=== PATIENT | male | born 1955 | race Caucasian/White ===

== ENCOUNTER → 2019-07-09 12:33 | Outpatient (CLI) | payer BC, SELFPAY ==
[2019-07-09 12:53] LABS: Add Manual Diff / Slide Review NO; Basophils Absolute Auto 100 /uL (0-100); Basophils Percent Auto 0.9 % (0-2); Eosinophils Absolute Auto 400 /uL (0-450); Eosinophils Percent Auto 5.1 % (2-4); Hematocrit 47.4 % (41-53); Hemoglobin 16.5 g/dL (13.5-17.5); Lymphocytes Absolute Auto 1900 /uL (1100-4500); Lymphocytes Percent Auto 26.5 % (25-40); Mean Corpuscular HGB Conc 34.7 % (30-36); Mean Corpuscular Hemoglobin 32.3 PG (26-34); Mean Corpuscular Volume 92.9 fL (80-100); Monocytes Absolute Auto 700 /uL (0-900); Neutrophils Absolute Auto 4100 /uL (1500-7000); Neutrophils Percent Auto 57.5 % (50-75); Platelet Count 201 X10^3/uL (150-400); Red Blood Cell Count 5.11 X10^6/uL (4.5-5.9); Red Cell Distribution Width 12.1 % (11.6-14.8); White Blood Cell Count 7.2 X10^3/uL (4.5-11.0)
[2019-07-09 13:09] LABS: Hemoglobin A1C% w Est Avg Glu 5.9 % (4.0-6.0)
[2019-07-09 13:51] LABS: Alanine Aminotransferase 41 IU/L (<50); Albumin 4.6 g/dL (3.5-5.0); Albumin Globulin Ratio 1.8 (1.0-2.8); Alkaline Phosphatase 62 U/L (38-126); Aspartate Aminotransferase 33 IU/L (17-59); BUN Creatinine Ratio 18.9 (6-22); Bilirubin Total 0.6 mg/dL (0.2-1.3); Blood Urea Nitrogen 17 mg/dL (9-20); Calcium 9.5 mg/dL (8.4-10.2); Carbon Dioxide 27 mmol/L (22-32); Chloride 105 mmol/L (98-107); Cholesterol 173 mg/dL (140-199); Estimated Glomerular Filt Rate > 60.0 mL/min (>60); Globulin 2.6 g/dL (1.7-4.1); Glucose 104 mg/dL (80-110); HDL Cholesterol 61 mg/dL (40-60); HEMOLYSIS < 15 (0-50); LDL Cholesterol Calculated 79 mg/dL (<100); Sodium 139 mmol/L (137-145); Total Protein 7.2 g/dL (6.3-8.2); Triglycerides 166 mg/dL (35-150)
[2019-07-09 14:19] LABS: Prostate Specific Antigen 0.634 ng/mL (0.10-4.00)
[2019-07-09 14:21] LABS: Thyroid Stimulating Hormone 2.31 uIU/mL (0.47-4.68)
== END ==
PROVIDERS: PCP Family Medicine; Referring Provider Family Medicine; Visit Provider Family Medicine
DX: Z76.89 Persons encountering health services in other specified circumstances (principal)
CPT/HCPCS: 36415; 80053; 80061; 83036; 84153; 84443; 85025

== ENCOUNTER 2019-08-04 15:49 | Emergency (ER) | payer BC, SELFPAY ==
[2019-08-04] VITALS (7 sets, daily range): BP systolic 156–180; BP diastolic 77–94; PULSE 52–70; RESP 14–18; TEMP 36.9; O2SAT 95–100
--- NOTE | 2019-08-04 15:59 | DI.CT.S_ITS ---
PROCEDURE: CT KIDNEY URETER BLADDER (KUB) INDICATIONS: Right flank pain TECHNIQUE: Noncontrast 5 mm thick sections acquired from the diaphragms to the symphysis. 5 mm thick coronal and sagittal reformats were then performed. For radiation dose reduction, the following was used: automated exposure control, adjustment of mA and/or kV according to patient size. COMPARISON: None. FINDINGS: Image quality: Diagnostic. Lung bases: Lung bases are clear. Heart size is normal. Coronary artery atherosclerosis is incidentally noted. Urinary system: Right kidney is slightly prominent in size and demonstrates mild. Next right edema with [id number] hydronephrosis and proximal hydroureter. There is at least a partially obstructing ureteral calculus evident at the ureteropelvic junction, which measures approximately 6 x 7 x 8 mm (image 38, series 2). Additional nonobstructing bilateral renal calculi are identified ranging in size from to 3 mm. No left-sided hydronephrosis is identified. The ureters are otherwise patent and unremarkable. No additional ureteral calculi are present bilaterally. No bladder calculi are identified. No significant bladder wall thickening is identified. Other solid organs: Liver is normal in size. Gallbladder is contracted and subsequently not adequately evaluated. Pancreas is normal in contours. Spleen is normal in size. Enlargement of the left adrenal gland is identified with a nodule measuring 2.4 x 2.9 cm. The density value over this nodule measures approximately 24 Hounsfield units (image 27, series 2). The right adrenal is unremarkable. Peritoneum and bowel: The stomach is unremarkable. The small bowel loops are nondilated. A normal amount of stool is seen within the colon. No mesenteric inflammation is appreciated. There is no free fluid, loculated fluid collection or free air. Areas of wall thickening involving the colon probably is related to incomplete distention and lack of significant intraluminal stool. Nodes and vessels: No retroperitoneal or mesenteric adenopathy by size criteria. Aorta and inferior vena cava are normal in caliber. Other pelvic soft tissues: No free pelvic fluid. No definite inguinal hernias or adenopathy. No loculated fluid collections are identified. The prostate contains a few coarse calcifications and is borderline enlarged. Bones: No suspicious bony lesions. No vertebral body compression fractures. Mild degenerative changes of the lumbar spine are present. There are [id number] degenerative changes of the pelvic joints. IMPRESSION: 1. Moderate-sized proximal at least partially obstructing right ureteral calculus with associated mild to moderate right-sided hydronephrosis. 2. Additional nonobstructing small renal calculi are present bilaterally. 3. Areas of wall thickening involving portions of the colon are felt to be exaggerated by lack of focal intraluminal stool. Areas of mild colonic wall inflammation cannot be completely excluded, but are felt to be unlikely. No bowel obstruction. 4. Indeterminate left adrenal nodule. MRI of the abdomen is recommended for further evaluation. Dictated by: Nav Fishman M.D. on 08/04/2019 at 15:44 Approved by: Nav Fishman M.D. on 08/04/2019 at 15:54
--- NOTE | 2019-08-04 16:04 | ED_ITS ---
HPI - Abdominal Pain <JARRELL Mckee - Last Filed: 08/04/19 19:04> General Chief Complaint: Abdominal Pain Stated Complaint: Right leg and groin pain Time Seen by Provider: 08/04/19 15:51 Source: patient Mode of arrival: Ambulatory History of Present Illness HPI narrative: 63yo male presents to the emergency department for right flank pain over the past 2-3 days. He states it is a dull ache 5/10 without ag gravating or alleviating symptoms. Patient states the pain does radiate down to his right groin. He did vomit this morning due to pain not due to nausea. Patient denies any swelling in his scrotum, pain is scrotum, or penile discharge. Patient denies any abdominal pain. He denies a history of kidney stones. Patient also denies fevers, chills, diarrhea, dizziness, cough, sore throat, ear pain, or any other concerns. Patient denies taking any blood thinners. Related Data Home Medications Medication Instructions Recorded Confirmed fluticasone propionate 50 2 spray NASAL DAILY 07/09/19 07/09/19 mcg/actuation nasal spray,suspension loratadine 10 mg tablet 10 mg PO DAILY 07/09/19 07/09/19 rosuvastatin 40 mg tablet 40 mg PO tab 07/09/19 07/09/19 Previous Rx's Medication Instructions Recorded hydrocodone-acetaminophen [Tor[place]] 1 tab PO Q4-6H PRN #14 tab 08/04/19 ondansetron 4 mg PO Q4H PRN #20 tab 08/04/19 tamsulosin 0.4 mg PO BEDTIME #30 cap 08/04/19 Allergies Allergy/AdvReac Type Severity Reaction Status Date / Time No Known Drug Allergies Allergy Verified 07/09/19 11:51 Review of Systems <JARRELL Mckee - Last Filed: 08/04/19 19:04> Review of Systems Narrative: REVIEW OF SYSTEMS: GENERAL: Denies fever, chills, malaise, or wt. loss. HENT: No head trauma, sore throat, or dysphagia. EYES: No loss of vision, double vision, eye pain, or irritation. CARDIOVASCULAR: No chest pain, palpitations, or orthopnea. RESPIRATORY: No shortness of breath or cough. GASTROINTESTINAL: Complains of vomiting, see HPI GENITOURINARY: Reports right-sided flank pain, see HPI. MUSCULOSKELETAL: No pain, weakness, or trauma. INTEGUMENTARY: No rash, lesions, or pruritus. NEURO: No numbness, tingling, memory loss, confusion, or headaches. PSYCH: No behavior or mood changes. Patient History <JARRELL Mckee - Last Filed: 08/04/19 19:04> Medical History Chicken pox (Resolved ~1974) Chronic sinusitis (Chronic ~1996) Colon polyps (Acute ~2014) Herpes (Inactive ~1983) History of squamous cell carcinoma (Acute ~1993) Hyperlipidemia (Acute ~2007) Neoplasm of nose (Acute) Osteoporosis (Chronic ~2009) Sciatica (Acute ~2014) Surgical History Anesthesia (Resolved) Carpal tunnel syndrome on both sides (Acute ~2016) Cubital tunnel syndrome, bilateral (Acute ~2016) History of oral surgery (Resolved) Status post surgical removal of neoplasm of skin (Acute) Family History Father Dementia Congestive heart failure Hypertension Hyperlipidemia Mother Cancer COPD (chronic obstructive pulmonary disease) Brother Congestive heart failure Myocardial infarction Arrhythmia Hyperlipidemia Sister Chronic sinusitis Deviated nasal septum Grandfather No problems noted. Grandmother Cancer Grandfather Arterial stenosis Hyperlipidemia Stroke Grandmother Myocardial infarction Congestive heart failure Social History Smoking Status: Former smoker (Quit @ 31 ) Tobacco: How many years used: 5 quit status: has quit before second hand exposure: Yes alcohol intake: current (2+ drinks per day ) substance use type: does not use Smoking Status: Former smoker (Quit @ 31 ) Exam <JARRELL Mckee - Last Filed: 08/04/19 19:04> Initial Vital Signs Initial Vital Signs: Vital Signs Temperature 98.4 F 08/04/19 15:59 Pulse Rate 62 08/04/19 15:59 Respiratory Rate 18 08/04/19 15:59 Blood Pressure 180/89 H 08/04/19 15:59 Pulse Oximetry 100 08/04/19 15:59 PHYSICAL EXAMINATION: GENERAL: Well groomed, alert, and cooperative. Answers questions promptly and appropriately. Vital signs noted. HENT: Normocephalic, atraumatic. Hearing intact. Oral mucosa is pink and moist. EYES: Conjunctiva pink, sclera white, no periorbital swelling. CARDIOVASCULAR: S1 and S2 sounds normal. Regular rate and rhythm, no murmurs, clicks, or bruits. No pedal edema. RESPIRATORY: Normal respiratory rate, trachea midline, airway patent. No stridor, nasal flaring or accessory muscle use. Lungs are clear in all [place] without wheeze, rhonchi, or crackles. GASTROINTESTINAL: Bowel sounds normoactive. Abdomen is soft and non-tender. No organomegaly, no palpable masses. GENITALURINARY: Right CVA tenderness. MUSCULOSKELETAL: Normal gait and coordination. Equal tone and mass bilaterally. EXTREMITIES: CMS intact, no pedal edema. SKIN: Warm, dry, soft, appropriate color for ethnicity. No lesions, rashes, or wounds to visualized areas. NEURO: Alert and Oriented X 3. Good coordination. No ataxia, or sensory defic its, or cognitive issues. PSYCH: Appropriate affect and mood. <Hiren Munoz DO - Last Filed: 08/04/19 19:05> Initial Vital Signs Initial Vital Signs: Vital Signs Temperature 98.4 F 08/04/19 15:59 Pulse Rate 62 08/04/19 15:59 Respiratory Rate 18 08/04/19 15:59 Blood Pressure 180/89 H 08/04/19 15:59 Pulse Oximetry 100 08/04/19 15:59 Course <JARRELL Mckee - Last Filed: 08/04/19 19:04> Course Course Narrative: Patient was given Toradol, Decadron, and fluids in the emergency department. Patient reported significant improved symptoms after medications. Orders Ordered: ED Orders 08/04/19 15:59 CT kidney ureter bladder (KUB) Stat 08/04/19 16:15 Complete Blood Count AUTO DIFF Stat Comprehensive Metabolic Panel Stat 08/04/19 17:10 Urinalysis and Microscopic Stat Discontinued Medications Sodium Chloride (Normal Saline 0.9%) 1,000 mls @ 1,000 mls/hr IV BOLUS ONE Stop: 08/04/19 16:58 Last Infusion: 08/04/19 17:37 Dose: 0 mls/hr Documented by: [email or web address] Admin: 08/04/19 16:43 Dose: 1,000 mls/hr Documented by: NATHANIEL Ketorolac Tromethamine (Toradol) 30 mg IV NOW ONE Stop: 08/04/19 16:00 Last Admin: 08/04/19 16:32 Dose: 30 mg Documented by: NATHANIEL Ondansetron HCl (Zofran) 4 mg IV NOW ONE Stop: 08/04/19 16:02 Last Admin: 08/04/19 16:31 Dose: 4 mg Documented by: NATHANIEL Vital Signs Vital signs: Vital Signs - 8 hr 08/04/19 15:59 08/04/19 16:10 08/04/19 16:43 Temperature 98.4 F Pulse Rate 62 52 L 52 L Respiratory Rate 18 16 16 Blood Pressure 180/89 H Blood Pressure [Right Arm] 169/94 H 169/94 H Pulse Oximetry 100 99 99 08/04/19 17:00 08/04/19 17:23 08/04/19 17:52 Temperature Pulse Rate 70 62 59 L Respiratory Rate 14 16 Blood Pressure 156/77 H Blood Pressure [Right Arm] 156/84 H 156/84 H Pulse Oximetry 95 100 99 08/04/19 17:53 Temperature Pulse Rate 56 L Respiratory Rate 16 Blood Pressure 156/77 H Blood Pressure [Right Arm] Pulse Oximetry 99 <Hiren Munoz, - Last Filed: 08/04/19 19:05> Orders Ordered: ED Orders 08/04/19 15:59 CT kidney ureter bladder (KUB) Stat 08/04/19 16:15 Complete Blood Count AUTO DIFF Stat Comprehensive Metabolic Panel Stat 08/04/19 17:10 Urinalysis and Microscopic Stat Discontinued Medications Sodium Chloride (Normal Saline 0.9%) 1,000 mls @ 1,000 mls/hr IV BOLUS ONE Stop: 08/04/19 16:58 Last Infusion: 08/04/19 17:37 Dose: 0 mls/hr Documented by: Admin: 08/04/19 16:43 Dose: 1,000 mls/hr Documented by: NATHANIEL Ketorolac Tromethamine (Toradol) 30 mg IV NOW ONE Stop: 08/04/19 16:00 Last Admin: 08/04/19 16:32 Dose: 30 mg Documented by: NATHANIEL Ondansetron HCl (Zofran) 4 mg IV NOW ONE Stop: 08/04/19 16:02 Last Admin: 08/04/19 16:31 Dose: 4 mg Documented by: NATHANIEL Vital Signs Vital signs: Vital Signs - 8 hr 08/04/19 15:59 08/04/19 16:10 08/04/19 16:43 Temperature 98.4 F Pulse Rate 62 52 L 52 L Respiratory Rate 18 16 16 Blood Pressure 180/89 H Blood Pressure [Right Arm] 169/94 H 169/94 H Pulse Oximetry 100 99 99 08/04/19 17:00 08/04/19 17:23 08/04/19 17:52 Temperature Pulse Rate 70 62 59 L Respiratory Rate 14 16 Blood Pressure 156/77 H Blood Pressure [Right Arm] 156/84 H 156/84 H Pulse Oximetry 95 100 99 08/04/19 17:53 Temperature Pulse Rate 56 L Respiratory Rate 16 Blood Pressure 156/77 H Blood Pressure [Right Arm] Pulse Oximetry 99 MDM - Abdominal Pain <JARRELL Mckee - Last Filed: 08/04/19 19:04> Medical Records Attestation: I reviewed the patient's medical records. Lab Data Attestation: I reviewed the patient's lab results. Result diagrams: 08/04/19 16:15 08/04/19 16:15 Labs: Lab Results 08/04/19 08/04/19 08/04/19 Range/Units 16:15 16:15 17:10 WBC 8.3 (4.5-11.0) X10^3/uL RBC 4.92 (4.5-5.9) X10^6/uL Hgb 15.7 (13.5-17.5) g/dL Hct 46.4 (41-53) % MCV 94.3 (80-100) fL MCH 31.8 (26-34) PG MCHC 33.8 (30-36) % RDW 12.3 (11.6-14.8) % Plt Count 186 (150-400) X10^3/uL Neut % (Auto) 64.9 (50-75) % Lymph % (Auto) 21.8 L (25-40) % Morton % (Auto) 8.5 (3-14) % Eos % (Auto) 4.1 H (2-4) % Baso % (Auto) 0.7 (0-2) % Neut # (Auto) 5400 (4951-8858) /uL Lymph # (Auto) 1800 (0247-2347) /uL Morton # (Auto) 700 (0-900) /uL Eos # (Auto) 300 (0-450) /uL Baso # (Auto) 100 (0-100) /uL Sodium 138 (137-145) mmol/L Potassium 4.4 (3.4-5.1) mmol/L Chloride 105 (98-107) mmol/L Carbon Dioxide 24 (22-32) mmol/L BUN 16 (9-20) mg/dL Creatinine 1.09 (0.66-1.25) mg/dL Estimated GFR > 60.0 (>60) mL/min BUN/Creatinine Ratio 14.7 (6-22) Glucose 104 (80-110) mg/dL Calcium 9.3 (8.4-10.2) mg/dL Total Bilirubin 0.5 (0.2-1.3) mg/dL AST 34 (17-59) IU/L ALT 37 (<50) IU/L Alkaline Phosphatase 56 (38-126) U/L Total Protein 7.1 (6.3-8.2) g/dL Albumin 4.4 (3.5-5.0) g/dL Globulin 2.7 (1.7-4.1) g/dL Albumin/Globulin Ratio 1.6 (1.0-2.8) Urine Color Yellow Urine Appearance Clear Urine pH 6.5 (4.5-8.0) Ur Specific [place] 1.025 (1.000-1.035) Urine Protein 2+ H (Negative) Urine Glucose (UA) Negative (Negative) g/dL Urine Ketones Negative (NEGATIVE) Urine Occult Blood 3+ H (Negative) Urine Nitrate Negative (Negative) Urine Bilirubin Negative (NEGATIVE) Urine Urobilinogen 0.2 (0.2) E.U./dL Ur Leukocyte Esterase Negative (NEGATIVE) Urine RBC 30-100/hpf H (0-5/HPF) Urine WBC 0-1/hpf (0-5/HPF) Ur Squamous Epith Cells 0-1 /hpf (0-5/HPF) Urine Bacteria Occasional (0-1) (None) Urine Mucus 1+ H (Negative) Ur Culture Indicated? Cult not indicated Point of care testing: Urine Dip Bedside Urine Glucose Negative Bedside Urine Bilirubin - Negative Bedside Urine Ketone +/- 5 Urine Specific [place] 1.025 Bedside Urine Occult Blood +++ Bedside Urine pH 6.0 Bedside Urine Protein ++ 100 Bedside Urine Urobilinogen - Negative Bedside Urine Nitrite - Negative Bedside Urine Leukocytes - Negative Esterase Imaging Data CT scan - abdomen/pelvis: Radiologist's Impression: [address] [address] [address] Scan Report Signed Patient: Eliu Butler LMR#: [id number] : 7Acct:[id number] Age/Sex: 63 / MDate of Service: 08/04/19 Loc: ED Accession Number: [id number] Procedure: CT kidney ureter bladder (KUB) Ordering Provider: Shahla Olson PROCEDURE: CT KIDNEY URETER BLADDER (KUB) INDICATIONS: Right flank pain TECHNIQUE: Noncontrast 5 mm thick sections acquired from the diaphragms to the symphysis. 5 mm thick coronal and sagittal reformats were then performed. For radiation dose reduction, the following was used: automated exposure control, adjustment of mA and/or kV according to patient size. COMPARISON: None. FINDINGS: Image quality: Diagnostic. Lung bases: Lung bases are clear. Heart size is normal. Coronary artery atherosclerosis is incidentally noted. Urinary system: Right kidney is slightly prominent in size and demonstrates mild . Next right edema with [id number] hydronephrosis and proximal hydroureter. There is at least a partially obstructing ureteral calculus evident at the ureteropelvic junction, which measures approximately 6 x 7 x 8 mm (image 38, series 2). Additional nonobstructing bilateral renal calculi are identified ranging in size from to 3 mm. No left-sided hydronephrosis is identified. The ureters are otherwise patent and unremarkable. No additional ureteral calculi are present bilaterally. No bladder calculi are identified. No significant bladder wall thickening is identified. Other solid organs: Liver is normal in size. Gallbladder is contracted and subsequently not adequately evaluated. Pancreas is normal in contours. Spleen is normal in size. Enlargement of the left adrenal gland is identified with a nodule measuring 2.4 x 2.9 cm. The density value over this nodule measures approximately 24 Hounsfield units (image 27, series 2). The right adrenal is unremarkable. Peritoneum and bowel: The stomach is unremarkable. The small bowel loops are nondilated. A normal amount of stool is seen within the colon. No mesenteric inflammation is appreciated. There is no free fluid, loculated fluid collection or free air. Areas of wall thickening involving the colon probably is related to incomplete distention and lack of significant intraluminal stool. Nodes and vessels: No retroperitoneal or mesenteric adenopathy by size criteria. Aorta and inferior vena cava are normal in caliber. Other pelvic soft tissues: No free pelvic fluid. No definite inguinal hernias or adenopathy. No loculated fluid collections are identified. The prostate contains a few coarse calcifications and is borderline enlarged. Bones: No suspicious bony lesions. No vertebral body compression fractures. Mild degenerative changes of the lumbar spine are present. There are mild-to- moderate degenerative changes of the pelvic joints. IMPRESSION: 1. Moderate-sized proximal at least partially obstructing right ureteral calculus with associated mild to moderate right-sided hydronephrosis. 2. Additional nonobstructing small renal calculi are present bilaterally. 3. Areas of wall thickening involving portions of the colon are felt to be exaggerated by lack of focal intraluminal stool. Areas of mild colonic wall inflammation cannot be completely excluded, but are felt to be unlikely. No bowel obstruction. 4. Indeterminate left adrenal nodule. MRI of the abdomen is recommended for further evaluation. Dictated by: Nav Fishman M.D. on 08/04/2019 at 15:44 Approved by: Nav Fishman M.D. on 08/04/2019 at 15:54 MDM Narrative Medical decision making narrative: 63-year-old male presenting with right flank pain for the past few days. CT KUB shows partial obstructing renal calculi without hydronephrosis, I suspect this is most likely the cause of his pain due to correlating blood found in urine, right CVA tenderness, and episodes of vomiting. Less likely gallbladder, pancreatic, or acute abdominal etiology due to normal lipase and nontender abdominal exam. Patient was referred to a urologist due to large stone. He was encouraged to follow-up in the next week. Patient was given tamsulosin, [place], and ondansetron to help with symptoms. There was no bacteria found in urine, no need for antibiotics at this time. Patient was given strict return precautions, he agrees to plan of care verbalized understanding. <Hirenluis Munoz, DO - Last Filed: 08/04/19 19:05> Lab Data Labs: Lab Results 08/04/19 08/04/19 08/04/19 Range/Units 16:15 16:15 17:10 WBC 8.3 (4.5-11.0) X10^3/uL RBC 4.92 (4.5-5.9) X10^6/uL Hgb 15.7 (13.5-17.5) g/dL Hct 46.4 (41-53) % MCV 94.3 (80-100) fL MCH 31.8 (26-34) PG MCHC 33.8 (30-36) % RDW 12.3 (11.6-14.8) % Plt Count 186 (150-400) X10^3/uL Neut % (Auto) 64.9 (50-75) % Lymph % (Auto) 21.8 L (25-40) % Morton % (Auto) 8.5 (3-14) % Eos % (Auto) 4.1 H (2-4) % Baso % (Auto) 0.7 (0-2) % Neut # (Auto) 5400 (0950-1807) /uL Lymph # (Auto) 1800 (1905-4437) /uL [place] # (Auto) 700 (0-900) /uL Eos # (Auto) 300 (0-450) /uL Baso # (Auto) 100 (0-100) /uL Sodium 138 (137-145) mmol/L Potassium 4.4 (3.4-5.1) mmol/L Chloride 105 (98-107) mmol/L Carbon Dioxide 24 (22-32) mmol/L BUN 16 (9-20) mg/dL Creatinine 1.09 (0.66-1.25) mg/dL Estimated GFR > 60.0 (>60) mL/min BUN/Creatinine Ratio 14.7 (6-22) Glucose 104 (80-110) mg/dL Calcium 9.3 (8.4-10.2) mg/dL Total Bilirubin 0.5 (0.2-1.3) mg/dL AST 34 (17-59) IU/L ALT 37 (<50) IU/L Alkaline Phosphatase 56 (38-126) U/L Total Protein 7.1 (6.3-8.2) g/dL Albumin 4.4 (3.5-5.0) g/dL Globulin 2.7 (1.7-4.1) g/dL Albumin/Globulin Ratio 1.6 (1.0-2.8) Urine Color Yellow Urine Appearance Clear Urine pH 6.5 (4.5-8.0) Ur Specific [place] 1.025 (1.000-1.035) Urine Protein 2+ H (Negative) Urine Glucose (UA) Negative (Negative) g/dL Urine Ketones Negative (NEGATIVE) Urine Occult Blood 3+ H (Negative) Urine Nitrate Negative (Negative) Urine Bilirubin Negative (NEGATIVE) Urine Urobilinogen 0.2 (0.2) E.U./dL Ur Leukocyte Esterase Negative (NEGATIVE) Urine RBC 30-100/hpf H (0-5/HPF) Urine WBC 0-1/hpf (0-5/HPF) Ur Squamous Epith Cells 0-1 /hpf (0-5/HPF) Urine Bacteria Occasional (0-1) (None) Urine Mucus 1+ H (Negative) Ur Culture Indicated? Cult not indicated Point of care testing: Urine Dip Bedside Urine Glucose Negative Bedside Urine Bilirubin - Negative Bedside Urine Ketone +/- 5 Urine Specific [place] 1.025 Bedside Urine Occult Blood +++ Bedside Urine pH 6.0 Bedside Urine Protein ++ 100 Bedside Urine Urobilinogen - Negative Bedside Urine Nitrite - Negative Bedside Urine Leukocytes - Negative Esterase Discharge Plan Departure Patient Disposition: Home Clinical Impression: Renal calculi Discharge Date/Time: 08/04/19 17:50 Instructions: DI for Kidney Stones Activity Restrictions/Additional Instructions: Thank you for entrusting me with your care today. As discussed, your CT shows a kidney stone in your right ureter measuring [id number], this may be difficult to pass and I suggest you follow-up with the urologist listed below. Please give them a call tomorrow to schedule an appointment. Please strain your urine and collect the stone. Additionally, there was an incidental finding of a nodule on your left adrenal gland and colonic wall inflammation. Please follow up with your primary care provider for further monitoring and evaluation of these findings. I prescribed you pain medication, nausea medication, and a medication that helps you past your kidney stones, these medications were sent to [facility] [place]. You have been prescribed a narcotic medication, this medication can make you drowsy. Do not drive while using this medication or perform ac tivities that require mental alertness. These medications can also make you constipated, please use [id number] docusate sodium as needed for constipation. Prescriptions: New hydrocodone-acetaminophen [[place]] 5-325 mg tablet 1 tab PO Q4-6H PRN (Reason: pain) Qty: 14 RF: 0 ondansetron 4 mg tablet,disintegrating 4 mg PO Q4H PRN (Reason: nausea and vomiting) Qty: 20 RF: 0 tamsulosin 0.4 mg capsule 0.4 mg PO BEDTIME Qty: 30 RF: 0 No Action rosuvastatin 40 mg tablet 40 mg PO RF: 0 fluticasone propionate [Flonase Allergy Relief] 50 mcg/actuation spray,suspension 2 spray NASAL DAILY RF: 0 loratadine [Claritin] 10 mg tablet 10 mg PO DAILY RF: 0 Referrals: Irma Rivero MD [Non-Staff] - (Moderate-sized renal calculi) Juvencio Jones DO [Primary Care Provider] - ED Sign-out <JARRELL Mckee - Last Filed: 08/04/19 19:04> Cosign ED Attending Jamie Attestation: I was immediately available in the department for consultation. This documentation has been reviewed and I agree with assessment and plan. Supervised by JARRELL Mckee <Hiren Munoz DO - Last Filed: 08/04/19 19:05> Cosign ED Attending Jamie Attestation: I was immediately available in the department for consultation. This documentation has been reviewed and I agree with assessment and plan. Supervised by Hiren Munoz DO
[2019-08-04] MEDS: ONDANSETRON 4 MG/2 ML INJ IV (16:31)
[2019-08-04 16:32] LABS: Add Manual Diff / Slide Review NO; Basophils Absolute Auto 100 /uL (0-100); Basophils Percent Auto 0.7 % (0-2); Eosinophils Absolute Auto 300 /uL (0-450); Eosinophils Percent Auto 4.1 % (2-4); Hematocrit 46.4 % (41-53); Hemoglobin 15.7 g/dL (13.5-17.5); Lymphocytes Absolute Auto 1800 /uL (1100-4500); Lymphocytes Percent Auto 21.8 % (25-40); Mean Corpuscular HGB Conc 33.8 % (30-36); Mean Corpuscular Hemoglobin 31.8 PG (26-34); Mean Corpuscular Volume 94.3 fL (80-100); Monocytes Absolute Auto 700 /uL (0-900); Monocytes Percent Auto 8.5 % (3-14); Neutrophils Absolute Auto 5400 /uL (1500-7000); Neutrophils Percent Auto 64.9 % (50-75); Platelet Count 186 X10^3/uL (150-400); Red Blood Cell Count 4.92 X10^6/uL (4.5-5.9); Red Cell Distribution Width 12.3 % (11.6-14.8); White Blood Cell Count 8.3 X10^3/uL (4.5-11.0)
[2019-08-04] MEDS: KETOROLAC 60 MG/2 ML VIAL 30 MG IV (16:32)
[2019-08-04] MEDS: SODIUM CHLORIDE 0.9% 1,000 ML 1000 ML IV (16:43)
[2019-08-04 16:44] LABS: Alanine Aminotransferase 37 IU/L (<50); Albumin 4.4 g/dL (3.5-5.0); Albumin Globulin Ratio 1.6 (1.0-2.8); Alkaline Phosphatase 56 U/L (38-126); Aspartate Aminotransferase 34 IU/L (17-59); BUN Creatinine Ratio 14.7 (6-22); Bilirubin Total 0.5 mg/dL (0.2-1.3); Blood Urea Nitrogen 16 mg/dL (9-20); Calcium 9.3 mg/dL (8.4-10.2); Carbon Dioxide 24 mmol/L (22-32); Chloride 105 mmol/L (98-107); Estimated Glomerular Filt Rate > 60.0 mL/min (>60); Globulin 2.7 g/dL (1.7-4.1); Glucose 104 mg/dL (80-110); HEMOLYSIS < 15 (0-50); Potassium 4.4 mmol/L (3.4-5.1); Sodium 138 mmol/L (137-145); Total Protein 7.1 g/dL (6.3-8.2)
[2019-08-04 17:33] LABS: Appearance Urine UA CLEAR; Bilirubin Urine UA NEGATIVE (NEGATIVE); Color Urine UA YELLOW; Glucose Urine UA NEGATIVE (Negative); Ketones Urine UA NEGATIVE (NEGATIVE); Leukocyte Esterase Urine UA NEGATIVE (NEGATIVE); Nitrite Urine UA NEGATIVE (Negative); Occult Blood Urine UA 3+ (Negative); Protein Urine UA 2+ (Negative); Specific Gravity Urine UA 1.025 (1.000-1.035); Urobilinogen Urine UA 0.2 E.U./dL (0.2); pH Urine UA 6.5 (4.5-8.0)
[2019-08-04 18:03] LABS: Bacteria Urine Occasional (0-1); Culture Indicated Urine Cult Not Indicated; Mucus Urine 1+ (Negative); RBC Urine 30-100/HPF (0-5/HPF); Squamous Epithelial Cell Urine 0-1 /HPF (0-5/HPF); WBC Urine 0-1/HPF (0-5/HPF)
== END 2019-08-04 17:50 | disposition home or self-care (01) ==
PROVIDERS: Emergency Provider Nurse Practitioner; PCP Family Medicine
DX: N20.0 Calculus of kidney (principal); R11.2 Nausea with vomiting, unspecified
CPT/HCPCS: 36415; 74176; 80053; 81001; 81003; 85025; 96361; 96374; 96375; 99284; J1885; J2405

== ENCOUNTER → 2019-08-16 11:49 | Outpatient (CLI) | payer BC, SELFPAY ==
--- NOTE | 2019-08-16 11:52 | DI.MRI.S_ITS ---
PROCEDURE: MR ABDOMEN WO CON INDICATIONS: further eval left adrenal gland nodule TECHNIQUE: Coronal HASTE, axial 2-D FLASH in- and [id number] with subtractions from the hepatic dome to the iliac crests. COMPARISON: [facility], CT, CT KIDNEY URETER BLADDER (KUB), 08/04/2019, 16:22. FINDINGS: Image quality: Excellent. Adrenal glands: The right adrenal gland is within normal limits. There is a 25 mm diameter left adrenal nodule, which demonstrates small internal foci of signal dropout on out of phase gradient echo sequences. Other solid organs: Liver is normal in overall size. Gallbladder is contracted. Biliary system is non dilated. Pancreas is normal in morphology. Spleen is normal in size. Both kidneys are normal in size, without hydronephrosis. Nodes and vessels: No retroperitoneal or mesenteric adenopathy by size criteria. Aorta and inferior vena cava are normal in size. Bowel and peritoneum: Unenhanced bowel loops are normal in caliber. No free fluid. Lung bases: No basal pleural effusions. There is a small fat containing right posterior medial hemidiaphragmatic hernia. Heart size is normal. Bones and soft tissues: No ventral hernias. Bone marrow is of normal overall signal. IMPRESSION: 1. 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 Followup adrenal cortical MRI in 3 months is recommended to exclude the less likely possibility of progressive neoplasm. Dictated by: Luda Silva M.D. on 08/16/2019 at 12:54 Approved by: Luda Silva M.D. on 08/16/2019 at 12:56
== END ==
PROVIDERS: PCP Family Medicine; Referring Provider Family Medicine; Visit Provider Family Medicine
DX: E27.8 Other specified disorders of adrenal gland (principal); N20.0 Calculus of kidney; K44.9 Diaphragmatic hernia without obstruction or gangrene
CPT/HCPCS: 74181

== ENCOUNTER → 2019-11-01 09:13 | Outpatient (CLI) | payer OTHER, SELFPAY ==
[2019-11-02 09:29] LABS: COVID19 Sendout NOT DETECTED (Not Detect)
== END ==
PROVIDERS: PCP Family Medicine; Visit Provider Physician Assistant
DX: Z01.812 Encounter for preprocedural laboratory examination (principal)
CPT/HCPCS: 87635

== ENCOUNTER 2019-11-04 08:23 | Day surgery (SDC) | payer OTHER, SELFPAY ==
[2019-11-04] VITALS (7 sets, daily range): BP systolic 128–148; BP diastolic 70–85; PULSE 62–74; RESP 12–20; TEMP 36–36.2; O2SAT 94–97; BMI 28.5
[2019-11-04] MEDS: LACTATED RINGERS 1,000 ML 200 ML IV (08:46)
--- NOTE | 2019-11-04 09:17 | PM.HP.1 ---
History of Present Illness History of Present Illness Date Patient Seen: 11/04/19 Time Patient Seen: 09:17 Chief complaint: [id number] SCREENING COLONOSCOPY Narrative: The patient presents for colorectal sreening. He had a previous colonoscopy 5 years ago that demonstrated a 1 cm adenomatous polyp in the sigmoid colon which was removed.. No personal or family history of colon cancer. On further history denies any recent gastrointestinal symptoms. No nausea, vomiting, abdominal pain, loss of appetite, unexplained weight loss, change in bowel habits, diarrhea, constipation, melena, hematochezia, or bright red blood per rectum. Patient History Medical History Chicken pox (Resolved ~1974) Chronic sinusitis (Chronic ~1996) Colon polyps (Acute ~2014) Herpes (Inactive ~1983) History of squamous cell carcinoma (Acute ~1993) Hyperlipidemia (Acute ~2007) Neoplasm of nose (Acute) Osteoporosis (Chronic ~2009) Sciatica (Acute ~2014) Surgical History Anesthesia (Resolved) Carpal tunnel syndrome on both sides (Acute ~2016) Cubital tunnel syndrome, bilateral (Acute ~2016) History of oral surgery (Resolved) Status post surgical removal of neoplasm of skin (Acute) Family & Social History Family History Father Dementia Congestive heart failure Hypertension Hyperlipidemia Mother Cancer COPD (chronic obstructive pulmonary disease) Brother Congestive heart failure Myocardial infarction Arrhythmia Hyperlipidemia Sister Chronic sinusitis Deviated nasal septum Grandfather No problems noted. Grandmother Cancer Grandfather Arterial stenosis Hyperlipidemia Stroke Grandmother Myocardial infarction Congestive heart failure Social History: household members spouse Tobacco & Substance use: Smoking Status Former smoker alcohol intake current alcohol intake frequency 0-2 drinks per day Substance Use Type marijuana Meds Home Medications and Allergies Home Medications Medication Instructions Recorded Confirmed Type loratadine 10 mg tablet 10 mg PO DAILY 07/09/19 11/04/19 History rosuvastatin 40 mg tablet 40 mg PO DAILY tab 07/09/19 11/04/19 History sodium,potassium,mag sulfates 17.5 177 ml PO DAILY #354 ml 10/29/19 11/04/19 Rx gram-3.13 gram-1.6 gram oral soln Allergies Allergy/AdvReac Type Severity Reaction Status Date / Time No Known Drug Allergies Allergy Verified 11/04/19 08:32 Review of Systems Review of Systems Narrative: A 10 point review of systems is negative except as noted in the HPI Exam Vital Signs (past 8 hours): - 11/04/19 08:41 Temperature 97.1 F L Pulse Rate 74 Respiratory Rate 20 Blood Pressure 136/79 Pulse Oximetry 94 Oxygen Delivery Method Room Air Narrative Exam Narrative: General-no acute distress, well nourished HEENT-moist mucous membranes, no scleral icterus Neck-supple, no lymphadenopathy Chest- non labored respirations, clear to auscultation bilaterally Cardiac-regular rate no peripheral edema Abdomen-soft, nontender, non distended Extremities-warm, well perfused Neurological-alert and oriented, no focal deficits Assessment & Plan Assessment and plan (1) Screening for colon cancer: Status: Acute Assessment & Plan narrative: The patient requires colorectal screening and colonoscopy is recommended. Technical details were discussed. Risks, benefits, alternatives explained. Risks including but not limited to myocardial infarction, aspiration, bleeding, pain, missed lesion, incomplete examination, need for further radiographic studies, colonic perforation, and need for major abdominal surgery were discussed. All questions were answered to their satisfaction, and they are in agreement with this plan. COVID-19 COVID-19 status: Negative Result date/Date tested (Pos, Neg/Pending): 11/01/19
[2019-11-04] MEDS: MIDAZOLAM 5 MG/5 ML VIAL IV (09:38)
[2019-11-04] MEDS: fentaNYL 250 MCG/5 ML INJ IV (09:39)
--- NOTE | 2019-11-04 09:40 | PM.OP.ENDO ---
Operative Date/Time/Diagnoses Date of procedure: 11/04/19 Time of procedure: 09:40 Pre-op diagnosis: Screening colonoscopy Post-op diagnosis: same Procedure & Clinicians Study performed: Colonoscopy Same procedure as scheduled: Yes Indications: 64-year-old male had a screening colonoscopy 5 years ago that demonstrated adenomatous polyp within the sigmoid colon that was removed presents for routine screening. Surgeon: Boo Dennis Procedure Notes SCOAP/Timeout: Performed Procedure in detail: Patient placed in left lateral decubitus position. Time out was performed. Procedural sedation was administered with Versed and Fentanyl. A rectal exam demonstrated no external hemorrhoids no internal masses. Colonoscopy scope was placed into the rectum and advanced through the colon to the cecum. The ileocecal valve was identified. The scope was then slowly withdrawn examining colon thoroughly in all directions. The colonoscopy was notable for the following 1. Sigmoid diverticulosis 2. No masses or polyps 3. Quality of prep excellent Scope withdrawal time: 6 Sedation minutes: 20 Findings: diverticulosis Specimen(s): none sent Complications: none Impression: Diverticulosis Post-procedure Recommendations: Colonscopy in 10 years
== END 2019-11-04 10:20 | disposition home or self-care (01) ==
LOC: ENDO 08:24
PROVIDERS: PCP Family Medicine; Referring Provider Surgery; Visit Provider Surgery
PROC: 0DJD8ZZ Inspection of Lower Intestinal Tract, Via Natural or Artificial Opening Endoscopic (ICD-10-PCS; CPT 45378; principal; 2019-11-04 09:15)
DX: Z12.11 Encounter for screening for malignant neoplasm of colon (principal); Z86.010 Personal history of colon polyps; K57.30 Diverticulosis of large intestine without perforation or abscess without bleeding
CPT/HCPCS: 45378; 99152; J2250; J3010

== ENCOUNTER → 2019-11-13 10:22 | Outpatient (CLI) | payer OTHER, SELFPAY ==
--- NOTE | 2019-11-13 10:23 | DI.CT.S_ITS ---
PROCEDURE: CT KIDNEY URETER BLADDER (KUB) INDICATIONS: nephrolitthiasis w/obstruction TECHNIQUE: Noncontrast 5 mm thick sections acquired from the diaphragms to the symphysis. 5 mm thick coronal and sagittal reformats were then performed. For radiation dose reduction, the following was used: automated exposure control, adjustment of mA and/or kV according to patient size. COMPARISON: [facility], CT, CT KIDNEY URETER BLADDER (KUB), 08/04/2019, 16:22. FINDINGS: Image quality: Excellent. Lung bases: Lung bases are clear. Heart size is normal. Urinary system: Both kidneys are normal in size. There is a 6 mm Hounsfield units 781 calcification within the proximal ureter on the right. It has advanced approximately 4-5 cm compared to 08/04/19. There is now moderate right hydronephrosis and proximal hydroureter. The left kidney demonstrates a stable 4 mm inferior pole calcification. Bladder wall thickness is normal; no calcified bladder stones. Other solid organs: Liver is minimally enlarged. Gallbladder is unremarkable. Pancreas is normal in contours. Spleen is normal in size. No adrenal nodules. Peritoneum and bowel: Unenhanced bowel loops demonstrate normal wall thickness and caliber. No free fluid or air. Colonic diverticula are present. Nodes and vessels: No retroperitoneal or mesenteric adenopathy by size criteria. Aorta and inferior vena cava are normal in caliber. Abdominal wall: No ventral hernias. Pelvis: No free pelvic fluid. Bilateral fat containing inguinal hernias are present. Bones: No suspicious bony lesions. No vertebral body compression fractures. IMPRESSION: 1. Right hydronephrosis and hydroureter with ureteral calculus as above. 2. Unchanged nonobstructing left renal calculus. 3. Diverticulosis. Dictated by: Amena Jung M.D. on 11/13/2019 at 11:58 Approved by: Amena Jung M.D. on 11/13/2019 at 12:04
== END ==
PROVIDERS: PCP Family Medicine; Referring Provider Family Medicine; Visit Provider Family Medicine
DX: N13.2 Hydronephrosis with renal and ureteral calculous obstruction (principal); K57.90 Diverticulosis of intestine, part unspecified, without perforation or abscess without bleeding; K40.20 Bilateral inguinal hernia, without obstruction or gangrene, not specified as recurrent
CPT/HCPCS: 74176

== ENCOUNTER → 2019-11-19 09:13 | Outpatient (CLI) | payer OTHER, SELFPAY ==
--- NOTE | 2019-11-19 09:14 | DI.MRI.S_ITS ---
PROCEDURE: MR ABDOMEN WO CON INDICATIONS: 3 month f/u adrenal nodule TECHNIQUE: Coronal HASTE, axial 2-D FLASH in- and [id number] with subtractions from the hepatic dome to the iliac crests. COMPARISON: [facility], CT, CT KIDNEY URETER BLADDER (KUB), 11/13/2019, 10:58. [facility], MR, MR ABDOMEN WO CON, 08/16/2019, 12:09. FINDINGS: Image quality: Excellent. Adrenal glands: 2.4 cm rounded left adrenal mass demonstrates T1 signal which is minimally heterogeneous, but isointense to soft tissue and demonstrating a few small areas of low signal centrally. This corresponds to a few small areas of increased T2 signal suggesting fluid. Overall size and morphology is not significantly changed since the prior study. There is no evidence of macroscopic or microscopic fat components. Other solid organs: Liver is normal in overall size. Gallbladder is normal. Biliary system is non dilated. Pancreas is normal in morphology. Spleen is normal in size. There is persistent right hydronephrosis which has gradually progressed since August 2019. An obstructing calculus in the proximal to mid right ureter is partially imaged on the current study, well seen on the study performed last week. The left kidney is normal. Nodes and vessels: No retroperitoneal or mesenteric adenopathy by size criteria. Aorta and inferior vena cava are normal in size. Bowel and peritoneum: Unenhanced bowel loops are normal in caliber. No free fluid. Lung bases: No basal pleural effusions. Heart size is normal. Small fat-containing right posterior medial diaphragmatic hernia is again noted. Bones and soft tissues: No ventral hernias. Bone marrow is of normal overall signal. IMPRESSION: Stable appearance of indeterminate left adrenal lesion without MR characteristics of a benign lipid rich adenoma. Differential diagnosis includes lipid poor adenoma (functional or nonfunctional), less likely pheochromocytoma, malignancy/metastatic disease given the stability. 6 month followup as recommended for reassessment. Correlation with biochemical studies is recommended to determine functionally. If not previously performed, contrast enhanced CT is recommended to assess vascularity. Dictated by: Michelle Berumen M.D. on 11/19/2019 at 9:56 Approved by: Michelle Berumen M.D. on 11/19/2019 at 10:09
== END ==
PROVIDERS: PCP Family Medicine; Referring Provider Family Medicine; Visit Provider Family Medicine
DX: E27.8 Other specified disorders of adrenal gland (principal)
CPT/HCPCS: 74181

== ENCOUNTER → 2019-12-11 11:55 | Outpatient (CLI) | payer OTHER, SELFPAY ==
--- NOTE | 2019-12-11 11:57 | DI.RAD.S_ITS ---
PROCEDURE: XR KUB INDICATIONS: kidney stones TECHNIQUE: One view of the abdomen acquired. COMPARISON: [facility], CT, CT KIDNEY URETER BLADDER (KUB), 11/13/2019, 10:58. FINDINGS: Surgical changes and devices: None. Bowel: Bowel gas pattern is normal. Soft tissues: 6 millimeter stone projecting over the expected course of the right ureter situated between the right L4 and L5 transverse processes is redemonstrated. Stone is not changed in position compared to November 13, 2019. Visualized solid organ contours appear normal in size. Bones: No suspicious bony lesions. IMPRESSION: 6 millimeters calcified right ureteral stone stable in position compared to prior CT KUB obtained November 13, 2019. Dictated by: Blanquita Stephenson MD, PhD on 12/11/2019 at 17:48 Approved by: Blanquita Stephenson MD, PhD on 12/11/2019 at 17:50
[2019-12-11 15:18] LABS: Prostate Specific Antigen 0.489 ng/mL (0.10-4.00)
== END ==
PROVIDERS: PCP Family Medicine; Referring Provider Specialist; Visit Provider Specialist
DX: N20.0 Calculus of kidney (principal); N20.1 Calculus of ureter; N40.0 Benign prostatic hyperplasia without lower urinary tract symptoms
CPT/HCPCS: 36415; 74018; 84153

== ENCOUNTER → 2019-12-17 14:56 | Outpatient (CLI) | payer OTHER, SELFPAY ==
[2019-12-18 18:12] LABS: COVID19 Sendout Not Detected (Not Detect)
== END ==
PROVIDERS: PCP Family Medicine; Visit Provider Physician Assistant
DX: Z11.59 Encounter for screening for other viral diseases (principal)
CPT/HCPCS: 87635

== ENCOUNTER → 2019-12-19 13:49 | Outpatient (CLI) | payer OTHER, SELFPAY ==
--- NOTE | 2019-12-19 13:52 | DI.CT.S_ITS ---
PROCEDURE: CT SINUS SCREEN WO CON INDICATIONS: Persistent and progression with chronic sinusitis TECHNIQUE: Noncontrast 3.0 mm axial images acquired from the frontal sinuses to the mid-sella, with coronal and sagittal reformats. For radiation dose reduction, the following was used: automated exposure control, adjustment of mA and/or kV according to patient size. COMPARISON: None. FINDINGS: Image quality: Excellent. Maxillary Sinuses: Bilateral maxillary sinus mucosal thickening, measuring 5 mm in maximum thickness on the left and 6 mm in maximum thickness on the right. No air-fluid level. Ethmoid Air Cells: Patchy subtotal opacification and bony remodeling consistent with chronic sinusitis. Sphenoid Sinuses: Mild diffuse mucosal thickening. No air-fluid level. Frontal Sinuses: Bilateral mucosal thickening. Small right frontal sinus air-fluid level. Ostiomeatal Complexes: Ostiomeatal complexes obstructed by soft tissue bilaterally. Miscellaneous: Visualized intra-orbital contents are normal. Cannot exclude small bilateral nasal polyps. There is anterior nasal septal deviation to the right measuring 5 mm. There is mild S-shaped nasal deviation posteriorly. There is mild narrowing of the right nasal passage anteriorly and of the left nasal passage posteriorly. IMPRESSION: 1. Extensive changes of chronic pansinusitis. 2. Small air-fluid level, right frontal sinus. 3. Cannot exclude small nasal polyps. 4. Nasal septal deviation with narrowing of the bilateral nasal passages. Dictated by: Rony Suero M.D. on 12/19/2019 at 14:03 Approved by: Rony Suero M.D. on 12/19/2019 at 14:14
== END ==
PROVIDERS: PCP Family Medicine; Referring Provider Family Medicine; Visit Provider Family Medicine
DX: J32.4 Chronic pansinusitis (principal); J34.2 Deviated nasal septum
CPT/HCPCS: 70486

== ENCOUNTER 2019-12-20 07:32 | Day surgery (SDC) | payer OTHER, SELFPAY ==
[2019-12-16 08:02] VITALS: BMI 29.6
[2019-12-20] VITALS (7 sets, daily range): BP systolic 130–149; BP diastolic 73–92; PULSE 66–81; RESP 12–20; TEMP 35.8–36.7; O2SAT 94–95; BMI 29.6
[2019-12-20] MEDS: ACETAMINOPHEN 325 MG TABLET 975 MG PO (08:05)
[2019-12-20] MEDS: LACTATED RINGERS 1,000 ML 42 ML IV ×2 (08:06→10:13)
--- NOTE | 2019-12-20 08:21 | PM.PREOP ---
Pre-operative Note COVID-19 COVID-19 status: Negative Result date/Date tested (Pos, Neg/Pending): 12/16/19 Interval Note History & Physical reviewed/Exam performed by Physician: Yes Changes to H&P: No
--- NOTE | 2019-12-20 09:30 | SUR.OPER ---
Supine on padded ESWL bed, head on pillow, arms padded and tucked at side, legs uncrossed.
--- NOTE | 2019-12-20 10:21 | PM.OP.1 ---
Operative Date/Time/Diagnoses Date of procedure: 12/20/19 Time of procedure: 10:21 Pre-op diagnosis: Obstructing 8 mm right mid ureteral calculus Post-op diagnosis: same Procedure & Clinicians Procedure: Right extracorporeal shockwave lithotripsy (maximum power level 9.0 times 3000 shocks). Same procedure as scheduled: Yes Indications: 1. Obstructing 8 mm right mid ureteral calculus. 2. Failure of medical expulsion therapy. Surgeon: Argenis Beltrán Click Yes if Unassisted: Yes Anesthesia Type: General Operative Notes Findings: 8 mm radiopaque calculus situated between the right transverse process is of L3 and L4. Closure Type: not applicable Specimen(s): none sent Estimated Blood Loss (mL): 0 Blood products transfused: none Tourniquet time (min): 0 Procedure in detail: The patient was positioned in supine and the above-described index stone was localized in the xy and Z plane. Lithotripsy was then commenced power level was gradually increased to maximum power level of 9.0. The stone was really localize numerous times throughout the case. A total of 3000 shocks were delivered to the calculus. And showed mild radiographic intraoperative changes consistent with treatment effect but did not disappear. Patient was then awakened, transferred to [place], and transferred to recovery room. Complications: none Post-operative Condition: stable Disposition: PACU Plan for aftercare: Discharge home
[2019-12-20] MEDS: FUROSEMIDE 40 MG/4 ML VIAL 20 MG IV (10:37)
--- NOTE | 2019-12-20 10:45 | SUR.PHASEI ---
NO REDNESS, SWELLING OR PETECHIAE NOTED ON RIGHT FLANK.
== END 2019-12-20 11:05 | disposition home or self-care (01) ==
PROVIDERS: PCP Family Medicine; Referring Provider Family Medicine; Visit Provider Specialist
PROC: (CPT 50590; principal; 2019-12-20 09:00)
DX: N20.1 Calculus of ureter (principal)
CPT/HCPCS: 50590; J0171; J1100; J1940; J2405; J2704

== ENCOUNTER → 2020-01-06 12:44 | Outpatient (CLI) | payer OTHER, SELFPAY ==
--- NOTE | 2020-01-06 13:25 | DI.RAD.S_ITS ---
PROCEDURE: XR KUB INDICATIONS: ureteral calculi TECHNIQUE: One view of the abdomen acquired. COMPARISON: [facility], CR, XR KUB, 12/11/2019, 11:51. FINDINGS: Surgical changes and devices: None. Bowel: Bowel gas pattern is normal. Soft tissues: Slight inferior migration of mid right ureteral stone now visualized just slightly inferior to the right transverse process of L5. Multiple pelvic phleboliths redemonstrated. Visualized solid organ contours appear normal in size. Bones: No suspicious bony lesions. IMPRESSION: Slight inferior migration of the mid right ureteral stone Dictated by: Jasbir Boyle RRA Interpreted: Taryn Bertrand MD on 01/06/2020 at 14:23 Approved by: Taryn Bertrand M.D. on 01/06/2020 at 18:24
== END ==
PROVIDERS: PCP Family Medicine; Referring Provider Family Medicine; Visit Provider Specialist
DX: N20.1 Calculus of ureter (principal)
CPT/HCPCS: 74018

== ENCOUNTER → 2020-01-31 12:09 | Outpatient (CLI) | payer OTHER, SELFPAY ==
--- NOTE | 2020-01-31 12:10 | DI.RAD.S_ITS ---
PROCEDURE: XR KUB INDICATIONS: kidney stone TECHNIQUE: One view of the abdomen acquired. COMPARISON: [facility], CT, CT KIDNEY URETER BLADDER (KUB), 11/13/2019, 10:58. [facility], CR, XR KUB, 01/06/2020, 13:18. [facility], CR, XR KUB, 12/11/2019, 11:51. FINDINGS: Surgical changes and devices: None. Bowel: Bowel gas pattern is normal. Soft tissues: No new suspicious abdominal calcification, although the right-sided ureteral calcification previously identified by CT scanning and a sequence of plain film KUB studies has progressed more inferiorly, and now overlies the S2 sacral neural foramen on the right. Previously it had been just below the inferior tip of the L5 transverse spinous process.. Visualized solid organ contours appear normal in size. Bones: No suspicious bony lesions. IMPRESSION: Further migration inferiorly of an 8 mm calculus within the right ureter, now located superimposed on the right sacrum as discussed above. Dictated by: Chele Wyman M.D. on 01/31/2020 at 13:21 Approved by: Chele Wyman M.D. on 01/31/2020 at 14:21
== END ==
PROVIDERS: PCP Family Medicine; Referring Provider Specialist; Visit Provider Specialist
DX: N20.1 Calculus of ureter (principal)
CPT/HCPCS: 74018

== ENCOUNTER → 2020-02-18 10:02 | Outpatient (CLI) | payer OTHER, SELFPAY ==
[2020-02-19 07:47] LABS: COVID19 Sendout Not Detected (Not Detect)
== END ==
PROVIDERS: PCP Family Medicine; Visit Provider Physician Assistant
DX: Z11.59 Encounter for screening for other viral diseases (principal)
CPT/HCPCS: 87635

== ENCOUNTER 2020-02-21 08:04 | Day surgery (SDC) | payer OTHER, SELFPAY ==
[2020-02-21] VITALS (10 sets, daily range): BP systolic 89–150; BP diastolic 58–81; PULSE 39–85; RESP 9–20; TEMP 35.8–36.3; O2SAT 92–96; BMI 28.8
--- NOTE | 2020-02-21 | DI.RAD.S_ITS ---
PROCEDURE: XR ABDOMEN 1V INDICATIONS: RIGHT SIDE URETAL STONE TECHNIQUE: One view of the abdomen acquired. COMPARISON: None. FINDINGS: Single spot fluoroscopic intraoperative images demonstrating proximal right ureteral stent. Dictated by: Meliton Farah M.D. on 02/21/2020 at 14:23 Approved by: Meliton Farah M.D. on 02/21/2020 at 14:23
[2020-02-21] MEDS: LACTATED RINGERS 500 ML 25 ML IV (08:18)
--- NOTE | 2020-02-21 09:47 | PM.PREOP ---
Pre-operative Note Interval Note History & Physical reviewed/Exam performed by Physician: Yes Changes to H&P: No
[2020-02-21] MEDS: CEFAZOLIN 2 GM/100 ML FROZ.PIGGY IV (10:11)
--- NOTE | 2020-02-21 10:38 | SUR.OPER ---
Lithotomy on padded OR bed, head on pillow, arms secured on padded arm boards at <90 degrees abduction. Legs secured in padded yellow fins stirrups.
--- NOTE | 2020-02-21 11:07 | SUR.OPER ---
soltive laser used total time 13:02minutes, 14.897KJ
--- NOTE | 2020-02-21 11:27 | P.OP_ITS ---
Operative Date/Time/Diagnoses Date of procedure: 02/21/20 Time of procedure: 11:27 Pre-op diagnosis: 1. Obstructing 8 mm right distal ureteral calculus. 2. Failure to progress. Post-op diagnosis: same Procedure & Clinicians Procedure: 1. Cystoscopy and right ureteroscopic laser lithotripsy. 2. Cystoscopy and placement right ureteral stent (6 Marshallese x 22-32 cm). Same procedure as scheduled: Yes Indications: 1. 8 mm obstructing right distal ureteral calculus. 2. Failure to progress. Surgeon: Argenis Beltrán Click Yes if Unassisted: Yes Anesthesia Type: General Operative Notes Findings: 1. Urethra-normal caliber without lesion or stricture. 2. External sphincter-coapted. 3. Prostate-4 cm length with moderately obstructing lateral lobes and elevated median bar. 4. Bladder-1+ trabeculation. Normal ureteral orifices bilaterally. No stone tumor foreign body visualized. 5. Right ureter-the index calculus was encountered and location expected just above the level the right iliac vasculature. The surrounding ureteral wall was very edematous and the urothelium excoriated edematous and erythematous. Closure Type: not applicable Specimen(s): other (Stone fragments) Applied: other (#6F x 22-32 cm multi-length stent.) Estimated Blood Loss (mL): 0 Blood products transfused: none Tourniquet time (min): 0 Procedure in detail: The patient was positioned supine and was administered general anesthesia. He was then repositioned semi lithotomy and the lower abdomen, genitalia, and perineum were prepped and draped in sterile fashion. The 22 Marshallese panendoscope was then passed lower urinary tract with the findings as described above. A 0.35 motion guidewire was then advanced and to the working channel of the scope and into the right ureteral orifice and collecting system under direct and fluoroscopic guidance. Next a 15 Marshallese by 6 cm balloon dilating catheter was selected. This was advanced over the guidewire and positioned across the right ureterovesical junction. The balloon was then inflated to 18 atmospheres and held in position for 5 minutes. The balloon was then deflated and backloaded off the wire. The panendoscope was then backloaded off the wire. The semi rigid ureteral scope was then advanced lower urinary tract and then and to the right upper collecting system under direct fluoroscopic guidance. A 200 micron laser fiber was selected. All operating room personnel and staff were fitted with laser safety eyewear. Laser lithotripsy was then commenced with excellent result and stone fragmentation and clearance of most of the material from the ureteral lumen prostate proper with hydrostatic and mechanical agitation. Ureteral scopes was then removed and the panendoscope was then front loaded onto the guidewire. A 6 Marshallese by 22-32 cm multi-length stent was then selected. This was advanced over the guidewire and into the right ureter under direct fluoroscopic guidance. A RETRIEVAL LINE WAS LEFT ATTACHED. The bladder was then drained completely. Some fragment material was recovered. This was submitted to the laboratory for routine crystallographic analysis. All instrumentation was removed. The patient was then awakened, transferred to [facility], and transferred recovery in stable condition. Complications: none Post-operative Condition: stable Disposition: PACU Plan for aftercare: Discharge home
[2020-02-21] MEDS: LACTATED RINGERS 1,000 ML 100 ML IV (11:40)
[2020-02-21] MEDS: ACETAMINOPHEN 325 MG TABLET PO (11:42)
[2020-02-21] MEDS: FUROSEMIDE 20 MG/2 ML VIAL IV (11:54)
--- NOTE | 2020-02-21 12:24 | SUR.PHASEI ---
pt arrived from OR drowsy and sleeping occassionally. BP and HR dropping and at 1135 HR 39 and BP 89/58. Amanda notified and he gave pt 10 mg ephedrin at 1138. BP and HR increased to 130's SBP and HR to 50's. Pt stated he had to urinate, requested to go to the bathroom, aware to strain urine here to see if any fragments to send off (pt to BR in phase 2). Pt never symptomatic for low BP or HR. Tolerated cup of water without issue. Stated pain was 3/10, declined any narcotics and was given tylenol as ordered. Pt to Phase 2, report to Hasmukh MOY.
--- NOTE | 2020-02-21 12:27 | SUR.PHASEII ---
Patient able to void, bloody urine per patient. Stone sent for analysis. Call light within reach. Report given to Veronica.
[2020-03-09 11:49] LABS: Stone Analysis Source R URETER
[2020-03-09 11:58] LABS: Size 3x8
== END 2020-02-21 12:45 | disposition home or self-care (01) ==
PROVIDERS: PCP Family Medicine; Referring Provider Family Medicine; Visit Provider Specialist
PROC: (CPT 52356; principal; 2020-02-21 09:15)
DX: N20.1 Calculus of ureter (principal)
CPT/HCPCS: 52356; 74018; 76000; 82365; J0690; J1940; J2704; J3010

== ENCOUNTER → 2020-04-03 09:15 | Outpatient (CLI) | payer OTHER, SELFPAY ==
--- NOTE | 2020-04-03 09:17 | DI.RAD.S_ITS ---
PROCEDURE: XR KUB INDICATIONS: ureteral calculus TECHNIQUE: One view of the abdomen acquired. COMPARISON: [facility], CR, XR ABDOMEN 1V, 02/21/2020, 10:54. [facility], CR, XR KUB, 01/31/2020, 12:07. FINDINGS: Surgical changes and devices: None. Bowel: Bowel gas pattern is normal. Soft tissues: A previously identified 8 mm calculus projecting in the distal right ureter on the prior study is no longer radiographically visualized. Multiple left-sided pelvic calcifications are again noted, and 2 of which are no longer seen. Bones: No suspicious bony lesions. IMPRESSION: Interval resolution of multiple pelvic calcifications as detailed above. Dictated by: Meliton Farah M.D. on 04/03/2020 at 12:10 Approved by: Meliton Farah M.D. on 04/03/2020 at 12:14
--- NOTE | 2020-04-03 09:21 | DI.CT.S_ITS ---
PROCEDURE: CT SINUS SCREEN WO CON INDICATIONS: Other specified disorders of nose and nasal sinuse TECHNIQUE: Noncontrast 3.0 mm axial images acquired from the frontal sinuses to the mid-sella, with coronal and sagittal reformats. For radiation dose reduction, the following was used: automated exposure control, adjustment of mA and/or kV according to patient size. COMPARISON: None. FINDINGS: Image quality: Excellent. [id number] polypoid mucosal thickening noted in the maxillary sinuses bilaterally, the ethmoid air cells bilaterally, the frontal sinuses bilaterally and the sphenoid sinuses bilaterally. No air-fluid levels. The ostiomeatal units are opacified bilaterally. No osseous thickening, osseous remodeling or osseous erosive changes. Nasal septum is deviated to the right. No paradoxical turbinates or sarah bullosa. IMPRESSION: Pansinusitis. Dictated by: Blanquita Stephenson MD, PhD on 04/03/2020 at 10:46 Approved by: Blanquita Stephenson MD, PhD on 04/03/2020 at 10:49
== END ==
PROVIDERS: PCP Family Medicine; Referring Provider Otolaryngology; Visit Provider Otolaryngology
DX: J32.4 Chronic pansinusitis (principal); Z87.442 Personal history of urinary calculi
CPT/HCPCS: 70486; 74018

== ENCOUNTER → 2020-04-06 08:01 | Outpatient (CLI) | payer OTHER, SELFPAY ==
[2020-04-06 09:21] LABS: BUN Creatinine Ratio 21.3 (6-22); Blood Urea Nitrogen 20 mg/dL (9-20); Calcium 9.2 mg/dL (8.4-10.2); Carbon Dioxide 30 mmol/L (22-32); Chloride 106 mmol/L (98-107); Estimated Glomerular Filt Rate > 60.0 mL/min (>60); Glucose 123 mg/dL (80-110); HEMOLYSIS < 15 (0-50); Potassium 4.4 mmol/L (3.4-5.1); Sodium 137 mmol/L (137-145); Uric Acid 5.9 mg/dL (3.5-8.5)
[2020-04-07 06:36] LABS: Parathyroid Hormone Int 40 pg/mL (15-65)
== END ==
PROVIDERS: PCP Family Medicine; Referring Provider Specialist; Visit Provider Specialist
DX: N20.1 Calculus of ureter (principal); N28.9 Disorder of kidney and ureter, unspecified
CPT/HCPCS: 36415; 80048; 83970; 84550

== ENCOUNTER → 2020-05-05 09:38 | Outpatient (CLI) | payer OTHER, SELFPAY ==
[2020-05-05 10:50] LABS: Alanine Aminotransferase 47 IU/L (<50); Albumin 3.9 g/dL (3.5-5.0); Albumin Globulin Ratio 1.6 (1.0-2.8); Alkaline Phosphatase 52 U/L (38-126); Aspartate Aminotransferase 30 IU/L (17-59); BUN Creatinine Ratio 17.6 (6-22); Bilirubin Total 0.5 mg/dL (0.2-1.3); Blood Urea Nitrogen 16 mg/dL (9-20); Calcium 9.1 mg/dL (8.4-10.2); Carbon Dioxide 28 mmol/L (22-32); Chloride 105 mmol/L (98-107); Estimated Glomerular Filt Rate > 60.0 mL/min (>60); Globulin 2.4 g/dL (1.7-4.1); Glucose 150 mg/dL (80-110); HEMOLYSIS < 15 (0-50); Potassium 4.2 mmol/L (3.4-5.1); Sodium 135 mmol/L (137-145); Total Protein 6.3 g/dL (6.3-8.2)
== END ==
PROVIDERS: PCP Family Medicine; Referring Provider Family Medicine; Visit Provider Family Medicine
DX: Z01.812 Encounter for preprocedural laboratory examination (principal)
CPT/HCPCS: 36415; 80053

== ENCOUNTER → 2020-05-06 12:47 | Outpatient (CLI) | payer OTHER, SELFPAY ==
--- NOTE | 2020-05-06 12:48 | DI.CT.S_ITS ---
PROCEDURE: CT ABDOMEN WO/W CON INDICATIONS: adrenal gland mass TECHNIQUE: Noncontrast 3 mm thick sections acquired from the diaphragms to the iliac crests. After the administration of intravenous contrast, 3 mm thick venous-phase and 15-minute delayed images acquired from the diaphragms to the iliac crests. For radiation dose reduction, the following was used: automated exposure control, adjustment of mA and/or kV according to patient size. COMPARISON: [facility], CT, CT KIDNEY URETER BLADDER (KUB), 08/04/2019, 16:22. [facility], MR, MR ABDOMEN WO CON, 11/19/2019, 9:30. [facility], CT, CT KIDNEY URETER BLADDER (KUB), 11/13/2019, 10:58. FINDINGS: Image quality: Excellent. Lung bases: Lung bases are clear. Heart size is normal. Adrenal glands: Enhancing 2.5 x 3.5 cm left adrenal gland mass is redemonstrated. This is unchanged in size when compared with the CT dated August 04, 2019. This demonstrates 26 Hounsfield units on the precontrast study, 98 Hounsfield units on the enhanced study, and 68 Hounsfield units on the delayed phase study. The absolute washout is 42% and the relative washout is 31%. No right adrenal gland lesions. Solid organs: Liver is normal in size and diffusely hypodense Gallbladder is mildly contracted . Biliary system is non dilated. Pancreas enhances normally. Spleen is normal in size and enhancement. Kidneys are normal in size and enhancement. No hydronephrosis or nephrolithiasis. Peritoneum and bowel: Unenhanced bowel loops are normal in caliber and wall thickness. No free fluid or air. Nodes and vessels: No retroperitoneal or mesenteric adenopathy by size criteria. Aorta and inferior vena cava are normal in size. Miscellaneous: No ventral hernias. Bones: No suspicious bony lesions. No vertebral body compression fractures. IMPRESSION: 1. Stable left adrenal gland mass which demonstrates less than 60% absolute washout. Findings do not meet the enhancement criteria of an adrenal adenoma. Differential considerations include metastasis in a patient with prior history of neoplasm, pheochromocytoma, and lipid poor atypical adrenal adenoma. This lesion has demonstrated 9 months stability in size. 3-6 month follow-up is recommended to ensure stability. Once 12 months stability of size is determined, this can be classified as a benign adrenal mass if under 4 cm in diameter. 2. Consider biochemical evaluation to determine the functional status of this mass and exclude pheochromocytoma. 3. If there is a history of neoplasm, consider PET-CT to evaluate for metastasis. Dictated by: Marta Fernandes M.D. on 05/06/2020 at 14:28 Approved by: Marta Fernandes M.D. on 05/06/2020 at 14:38
== END ==
PROVIDERS: PCP Family Medicine; Referring Provider Family Medicine; Visit Provider Family Medicine
DX: E27.9 Disorder of adrenal gland, unspecified (principal); N20.1 Calculus of ureter; N20.0 Calculus of kidney
CPT/HCPCS: 74170; Q9967

== ENCOUNTER → 2020-06-08 10:18 | Outpatient (CLI) | payer OTHER, SELFPAY ==
[2020-06-08 12:52] LABS: COVID19 -Nasal RAPID Negative (Negative)
== END ==
PROVIDERS: PCP Family Medicine; Visit Provider Physician Assistant
DX: Z20.822 Contact with and (suspected) exposure to COVID-19 (principal)
CPT/HCPCS: 87635

== ENCOUNTER 2020-06-11 12:11 | Day surgery (SDC) | payer OTHER, SELFPAY ==
[2020-06-11] VITALS (24 sets, daily range): BP systolic 117–165; BP diastolic 69–93; PULSE 67–96; RESP 10–18; TEMP 36.3–37.6; O2SAT 87–98; BMI 30.4
--- NOTE | 2020-06-11 | PATH_ITS ---
[facility] Accession Number: [id number] . 01 Material submitted: . nose - RIGHT NASAL POLYPS . 02 Diagnosis: Right Nasal Polyps, Excisions: Consistent with nasal inflammatory polyps. No evidence of neoplasm. MRV 06/15/2020 1112 Local . 02 Electronically signed: . Francisco Rothman MD, PhD, Pathologist NPI- [id number] . 01 Gross description: . The specimen is received in formalin, labeled right nasal polyps and consists of two mcintyre-pink polyps measuring 0.8 x 0.7 x 0.5 cm and 1.4 x 1.0 x 0.9 cm. The margins are inked blue. The polyps are bisected and entirely submitted in cassettes A1-A2; A2 larger polyp bisected. ([id number]) /MRV 06/12/2020 1157 Local . 02 Pathologist provided ICD-10: J32.4, J34.3, J33.0 . 02 CPT . 261993 Performed at: 01 [facility] [address] [place] [address], [place], [place] [id number] MD Eliu Smith MD Phone: [phone] Performed at: 02 [facility] [address] [place], [place] [id number] MD Maureen Blackmon MD Phone: [phone]
[2020-06-11] MEDS: LACTATED RINGERS 1,000 ML 42 ML IV ×3 (12:51→19:03)
[2020-06-11] MEDS: OXYMETAZOLINE NASAL SPRAY 15 ML 2 SPRAYS NASAL ×2 (12:59→15:20)
--- NOTE | 2020-06-11 14:18 | PM.PREOP ---
Pre-operative Note COVID-19 COVID-19 status: Negative Result date/Date tested (Pos, Neg/Pending): 06/08/20 Interval Note History & Physical reviewed/Exam performed by Physician: Yes Changes to H&P: No
--- NOTE | 2020-06-11 14:19 | PM.HP.1 ---
History of Present Illness History of Present Illness Date Patient Seen: 06/11/20 Time Patient Seen: 14:19 Chief complaint: Nasal airway obstruction, septal deviation, CRS Narrative: 64-year-old male with known severe right septal deviation, nasal airway obstruction, chronic rhinosinusitis, presents for septoplasty, inferior turbinate reduction and endoscopic sinus surgery. Last seen in clinic 04/15/2020, interval diagnosis of moderate DARIUS with home sleep study 05/27/2020 showing RDI 21.5. He states there were no apneas lying on his right side, which is consistent with his known right nasal obstruction. No recent cough, cold, or fever. Patient History Medical History Abnormal colonoscopy Chicken pox (~1974) Chronic pansinusitis Chronic sinusitis (~1996) Colon polyps (~2014) Herpes (~1983) History of squamous cell carcinoma (~1993) Hyperlipidemia (~2007) Insomnia with sleep apnea, unspecified Lesion of adrenal gland Nasal obstruction Neoplasm of nose Obstructive sleep apnea Osteoporosis (~2009) Prediabetes Renal calculus, left Renal colic on right side Respiratory obstruction Sciatica (~2014) Snoring Status post extracorporeal shock wave therapy (12/20/19) Ureteral calculus, right Surgical History Anesthesia Carpal tunnel syndrome on both sides (~2016) Cubital tunnel syndrome, bilateral (~2016) History of colonoscopy (11/04/19) History of oral surgery Status post surgical removal of neoplasm of skin Family & Social History Family History Father Dementia Congestive heart failure Hypertension Hyperlipidemia Sleep apnea Mother Cancer COPD (chronic obstructive pulmonary disease) Brother Congestive heart failure Myocardial infarction Arrhythmia Hyperlipidemia Sister Chronic sinusitis Deviated nasal septum Grandfather No problems noted. Grandmother Cancer Grandfather Arterial stenosis Hyperlipidemia Stroke Grandmother Myocardial infarction Congestive heart failure Social History: household members spouse Tobacco & Substance use: Smoking Status Former smoker alcohol intake current alcohol intake frequency 0-2 drinks per day Substance Use Type does not use Meds Home Medications and Allergies Home Medications Medication Instructions Recorded Confirmed Type loratadine 10 mg tablet 10 mg PO DAILY 07/09/19 06/11/20 History pseudoephedrine HCl 30 mg PO DAILY 02/21/20 06/11/20 History rosuvastatin 40 mg tablet 40 mg PO DAILY #90 tab 02/28/20 05/12/20 Rx potassium citrate 10 mEq (1,080 10 meq PO TID #270 tab 04/21/20 06/11/20 Rx mg) tablet,extended release Allergies Allergy/AdvReac Type Severity Reaction Status Date / Time No Known Drug Allergies Allergy Verified 06/11/20 12:27 Review of Systems Review of Systems ROS: Yes All systems reviewed with the patient and are negative except as otherwise documented Exam Vital Signs (past 8 hours): - 06/11/20 12:36 Temperature 97.9 F Pulse Rate 67 Respiratory Rate 16 Blood Pressure 133/73 Pulse Oximetry 95 Oxygen Delivery Method Room Air Narrative Exam Narrative: Well-developed well-nourished male in no acute distress heart regular rate and rhythm without murmur, lungs clear to auscultation bilaterally Assessment & Plan Assessment & Plan narrative: Assessment 1. Chronic rhinosinusitis 2. Nasal airway obstruction 3. Septal deviation 4. Inferior turbinate hypertrophy 5. DARIUS Plan: Following discussion of the material risks benefits complications and alternatives, patient elected to proceed with septoplasty, inferior turbinate reduction, and bilateral endoscopic sinus surgery.
--- NOTE | 2020-06-11 14:24 | P.OP_ITS ---
Operative Date/Time/Diagnoses Date of procedure: 06/11/20 Time of procedure: 18:04 Pre-op diagnosis: Chronic rhinosinusitis, nasal airway obstruction, septal deviation, inferior turbinate hypertrophy, DARIUS Post-op diagnosis: same (Also nasal polyposis) Procedure & Clinicians Procedure: 1. Septoplasty 2. Inferior turbinate reduction via intramural cautery 3. Bilateral endoscopic maxillary antrostomy 4. Bilateral endoscopic total ethmoidectomy 5. Left endoscopic sphenoidotomy Same procedure as scheduled: Yes Indications: 64-year-old male with the above diagnoses incompletely managed with medical therapy presents for the above procedures. Following discussion of the material risks benefits complications and alternatives, the patient elected to proceed. Surgeon: Craig Coy Click Yes if Unassisted: Yes Anesthesia Type: General and Local Operative Notes Findings: 3-4+ right high septal deviation, 3+ left inferior turbinate hypertrophy. Previously unrecognized bilateral nasal polyposis filling each middle meatus as well as the ethmoids, inflamed, hypertrophied mucosa throughout. Left sphenoidotomy performed, not the right. Cohen splints placed at completion. Closure Type: primary Specimen(s): none sent Estimated Blood Loss (mL): 300 Blood products transfused: none Procedure in detail: Following identification and confirmation of consent as well as preoperative Afrin nasal spray, the patient was brought to the operating room suite and placed in the supine position. General endotracheal anesthesia was administered. I infiltrated the head of each inferior turbinate and septum widely bilaterally with 1% lidocaine 1 100,000 epinephrine followed by temporary packing with cotton with Afrin and 4% lidocaine. Following sterile prep and drape, the packing was removed and I performed a right deneen-transfixion incision, elevated the right mucoperichondrial and mucoperiosteal flap. I disarticulated near the bony/cartilaginous junction and elevated the left mucoperiosteal flap. Deviated portions of the perpendicular plate of the e thmoid and vomer were resected. The residual quadrilateral cartilage was further straightened by trimming it inferiorly as well as reducing the maxillary crest. A 2 mm strip of cartilage paralleling the residual 1 cm dorsal and caudal strut was resected to further straighten the quadrilateral cartilage. The hemitransfixion incision was closed with interrupted 5 0 chromic followed by a running 4 0 plain gut mattress suture to reapproximate the septal flaps. At case completion, Cohen air channel silastic splints were placed bilaterally, sutured anteriorly with a single 4 0 nylon, with the posterior end ideally within the middle meatus to act as a stent. The head of each inferior turbinate had been previously infiltrated with additional local anesthetic and a 25 gauge spinal needle was used to impale the length of the turbinate, with cautery on a setting of 15 activated on slow withdrawal. The turbinates were then outfractured. Under endoscopic guidance I infiltrated the posterior and anterior superior insertion of the left middle turbinate. The middle turbinate was slightly medialized and the backbiting forceps performed uncinectomy along with the microdebrider, difficult visualization due to oozing from polyps within the middle meatus and slightly distorted anatomy. Maxillary antrostomy was created by extending the natural os posteriorly and inferiorly and additional hypertrophied/polypoid mucosa was resected from the antrostomy. The ethmoid bulla was resected with the microdebrider. I penetrated the basal lamella inferiorly and medially to enter the posterior e thmoids and trimmed the inferior half of the superior turbinate. The natural os of the sphenoid sinus was eventually identified and enlarged circumferentially with the mushroom punch as well as the microdebrider. Posterior to anterior ethmoid dissection was performed with the J curette and forceps although the frontal recess was not approached. Hemostasis with Afrin and lidocaine on cotton was performed. On the right side nearly identical procedure was performed although specimen was taken of the polyp and sent to pathology. Again difficult visualization due to oozing from the inflamed mucosa and polyps but eventually uncinectomy, maxillary antrostomy, ethmoid bulla resection were performed. I penetrated the basal lamella, eventually identified the polypoid superior turbinate which was trimmed inferiorly. I did not perform sphenoidotomy on this side. Posterior to anterior dissection was performed bluntly although it was narrow on this side. The frontal recess was not approached. Hemostasis was assured at completion. Sponge counts were correct and he was extubated in the operating room and taken to recovery room in stable condition without no complication. Postoperative care: Nasal saline every hour while awake, Vaseline or Polysporin to the nostrils at all times, begin irrigations t.i.d. beginning pod 1. Humidifier at the bedside blowing on the face. Tylenol alternating with Advil for pain control, oxycodone if necessary for breakthrough pain. I recommend beginning prednisone 60 mg daily for 2 days, decreasing 10 mg every 2 days until off, and also budesonide irrigations at least by the time of the postoperative appointment in 1 week. The patient's agrees to the plan, understands and is appreciative. Complications: none Post-operative Condition: stable Disposition: same day surgery Plan for aftercare: As discussed with the patient's , nasal saline every hour, begin irrigations t.i.d. tomorrow, keep the head elevated, no nose blowing or heavy lifting. I recommend prednisone 60 mg daily for 2 days, decreasing 10 mg every 2 days until off. I will also call in budesonide irrigations to use at least beginning at the postoperative appointment in 1 week for splint removal.
--- NOTE | 2020-06-11 14:59 | SUR.OPER ---
Supine on padded OR bed, head on pillow, arm padded and tucked at side, legs uncrossed, safety belt at thigh, tape over blanket over lower legs .
[2020-06-11] MEDS: LIDOCAINE 4% SOLN 50 ML 20 ML TOP (15:14)
[2020-06-11] MEDS: LIDOCAINE 1% W/EPI 20 ML INJ ×2 (15:15→15:20)
--- NOTE | 2020-06-11 18:26 | SUR.PHASEI ---
report received, assume care.
--- NOTE | 2020-06-11 18:33 | SUR.PHASEI ---
called , Zarina, to give update on pt's status. He is very sleepy and needs blow by oxygen at 6-7 l/min. and satting around 90-92. he denies px at this time, just needs a little more time to sleep, ongoing monitoring.
--- NOTE | 2020-06-11 19:14 | SUR.PHASEI ---
report given to CHINMAY hensley
--- NOTE | 2020-06-11 19:19 | SUR.PHASEI ---
updated on pt's status, she was very appreciative, at this time the plan is still for pt. to go home, he is just very sleepy and needs oxygen. ongoing monitoring.
[2020-06-11] MEDS: ACETAMINOPHEN 325 MG TABLET 650 MG PO (19:33)
[2020-06-11] MEDS: ONDANSETRON 4 MG/2 ML INJ IV (19:48)
--- NOTE | 2020-06-11 20:52 | SUR.PHASEII ---
pt needed time to wake up from anesthesia. Was very somnolent. Able to have rational conversations, arroused easily, BP stable. O2 was 93-95% while awake but would drop to 88% while sleeping. SPoke wtih respiratory and probably pt's baseline. ok to send home. Pt medicated with tylenol as was somnolent. d/c instructions provided to pt and his prior to d/c. mustache dressing changed without issue for scant bleeding. pt left in w/c with and RN escort to car.
== END 2020-06-11 20:45 | disposition home or self-care (01) ==
PROVIDERS: PCP Family Medicine; Referring Provider Otolaryngology; Visit Provider Otolaryngology
PROC: (CPT 30520; principal; 2020-06-11 13:15)
PROC: (CPT 31231; 2020-06-11 13:15)
DX: J34.2 Deviated nasal septum (principal); J34.89 Other specified disorders of nose and nasal sinuses; J32.4 Chronic pansinusitis; J34.3 Hypertrophy of nasal turbinates; J98.8 Other specified respiratory disorders; J33.8 Other polyp of sinus; G47.33 Obstructive sleep apnea (adult) (pediatric)
CPT/HCPCS: 31287; 30802; 30520; 31256; J1100; J2405; J2704; J3010

== ENCOUNTER → 2020-11-30 08:17 | Outpatient (CLI) | payer OTHER, SELFPAY ==
--- NOTE | 2020-11-30 08:18 | DI.RAD.S_ITS ---
PROCEDURE: XR KUB INDICATIONS: Stones TECHNIQUE: One view of the abdomen acquired. COMPARISON: [facility], CT, CT KIDNEY URETER BLADDER (KUB), 11/13/2019, 10:58. [facility], CT, CT ABDOMEN WO/W CON, 05/06/2020, 12:54. [facility], CR, XR KUB, 04/03/2020, 9:20. FINDINGS: Surgical changes and devices: Small surgical clip is noted in the left lower pelvis, at the edge of the image, likely representing post cholecystectomy clips. Bowel: Bowel gas pattern is normal. Soft tissues: Redemonstration of 4 mm calculus projecting over the inferior aspect of the left renal shadow. Multiple persistent bilateral pelvic calcifications which are unchanged in appearance and location since CT dated November 13, 2019. These are likely pelvic phleboliths. No new suspicious abdominal calcifications. Visualized solid organ contours appear normal in size. Bones: No suspicious bony lesions. IMPRESSION: Abdomen without acute radiographic abnormalities. Persistent mm left renal calculus No new pelvic calcifications identified. Dictated by: Beny Mancuso M.D. on 11/30/2020 at 8:39 Approved by: Beny Mancuso M.D. on 11/30/2020 at 8:52
== END ==
PROVIDERS: PCP Family Medicine; Referring Provider Specialist; Visit Provider Specialist
DX: N20.0 Calculus of kidney (principal); N20.1 Calculus of ureter; N23 Unspecified renal colic; Z87.442 Personal history of urinary calculi
CPT/HCPCS: 74018

== ENCOUNTER → 2021-04-27 12:13 | Outpatient (CLI) | payer OTHER, SELFPAY ==
--- NOTE | 2021-04-27 12:16 | DI.RAD.S_ITS ---
PROCEDURE: XR KUB INDICATIONS: Kidney stone TECHNIQUE: One view of the abdomen acquired. COMPARISON: [facility], , XR KUB, 11/30/2020, 8:17. FINDINGS: Surgical changes and devices: None. Bowel: Moderate fecal debris in the right colon. Soft tissues: No suspicious abdominal calcifications. Visualized solid organ contours appear normal in size. 4 mm calculus lower pole left kidney is similar to the prior exam. Bones: No suspicious bony lesions. IMPRESSION: Persistent of nonobstructive left renal calculus Approved by: Omar Castellanos M.D. on 04/27/2021 at 17:14
[2021-04-27 13:29] LABS: Alanine Aminotransferase 35 IU/L (<50); Albumin 4.7 g/dL (3.5-5.0); Alkaline Phosphatase 55 U/L (38-126); Aspartate Aminotransferase 39 IU/L (17-59); BUN Creatinine Ratio 22.8 (6-22); Bilirubin Total 0.8 mg/dL (0.2-1.3); Blood Urea Nitrogen 21 mg/dL (9-20); Calcium 9.9 mg/dL (8.4-10.2); Carbon Dioxide 27 mmol/L (22-32); Chloride 103 mmol/L (98-107); Cholesterol 174 mg/dL (140-199); Estimated Glomerular Filt Rate > 60.0 mL/min (>60); Globulin 2.4 g/dL (1.7-4.1); Glucose 126 mg/dL (80-110); HDL Cholesterol 66 mg/dL (40-60); HEMOLYSIS < 15 (0-50); LDL Cholesterol Calculated 76 mg/dL (<100); Potassium 4.3 mmol/L (3.4-5.1); Sodium 138 mmol/L (137-145); Total Protein 7.1 g/dL (6.3-8.2); Triglycerides 159 mg/dL (35-150)
[2021-04-27 13:58] LABS: Prostate Specific Antigen 0.757 ng/mL (0.10-4.00)
== END ==
PROVIDERS: Specialist; PCP Family Medicine; Referring Provider Family Medicine; Visit Provider Family Medicine
DX: N20.0 Calculus of kidney (principal); E78.5 Hyperlipidemia, unspecified; R97.20 Elevated prostate specific antigen [PSA]
CPT/HCPCS: 36415; 74018; 80053; 80061; 84153

== ENCOUNTER → 2021-12-15 09:48 | Outpatient (CLI) | payer MEDICARE, OTHER, SELFPAY ==
--- NOTE | 2021-12-15 09:53 | DI.RAD.S_ITS ---
PROCEDURE: XR SHOULDER LT MIN 2V INDICATIONS: Progressive left shoulder pain TECHNIQUE: 3 views of the shoulder were acquired. COMPARISON: [facility], CR, XR ELBOW LT MIN 3V, 12/15/2021, 10:29. FINDINGS: Bones: No fractures or dislocations. No suspicious bony lesions. Visualized ribs appear intact. Mild degenerative changes are seen, with mild subacromial spurring. Soft tissues: Mild calcific tendinopathy can be seen. The visualized lung demonstrates an unremarkable appearance. IMPRESSION: There are mild degenerative changes seen by plain film. If it would be helpful for clinical management decision making, please consider a dedicated, scheduled shoulder MRI for further evaluation (assuming that there is no contraindication). Dictated by: Prince Bill M.D. on 12/15/2021 at 10:56 Approved by: Prince Bill M.D. on 12/15/2021 at 10:56
--- NOTE | 2021-12-15 09:53 | DI.RAD.S_ITS ---
PROCEDURE: XR ELBOW LT MIN 3V INDICATIONS: Progressive left elbow pain, numbness TECHNIQUE: 3 views of the elbow were acquired. COMPARISON: [facility], CR, XR SHOULDER LT MIN 2V, 12/15/2021, 10:26. FINDINGS: Bones: No fractures or dislocations. No suspicious bony lesions. Soft tissues: No elbow joint effusion. Mild calcification can be seen adjacent to the lateral epicondyle. IMPRESSION: Likely prior lateral epicondylitis. Dictated by: Prince Bill M.D. on 12/15/2021 at 10:56 Approved by: Prince Bill M.D. on 12/15/2021 at 10:57
== END ==
PROVIDERS: PCP Family Medicine; Referring Provider Family Medicine; Visit Provider Family Medicine
DX: M25.522 Pain in left elbow (principal); M75.02 Adhesive capsulitis of left shoulder
CPT/HCPCS: 73030; 73080

== ENCOUNTER 2022-01-13 10:17 | Outpatient (CLI) | payer MEDICARE, OTHER, SELFPAY | END 2022-01-19 10:41 | disposition home or self-care (01) | LOC: PHYS 10:18 | PROVIDERS: Family Provider Family Medicine; PCP Family Medicine; Referring Provider Family Medicine; Visit Provider Family Medicine | DX: G56.22 Lesion of ulnar nerve, left upper limb (principal); G56.02 Carpal tunnel syndrome, left upper limb | CPT/HCPCS: 95886; 95912 ==

== ENCOUNTER 2022-02-11 09:45 | Outpatient (RCR) | payer MEDICARE, OTHER, SELFPAY ==
--- NOTE | 2022-01-25 19:11 | PT.OIE ---
Current Diagnoses Stiffness of left shoulder, not elsewhere classified (01/25/22) Cervicalgia (01/25/22) Adhesive capsulitis of left shoulder (01/25/22) Abnormal posture (01/25/22) Weakness (01/25/22) Past Medical History (Last Updated 12/15/21 @ 14:13 by Juvencio Jones DO) Abnormal colonoscopy Adhesive capsulitis of left shoulder Calcium nephrolithiasis Carpal tunnel syndrome of left wrist Chicken pox (~1974) Chronic pansinusitis Chronic sinusitis (~1996) Colon polyps (~2014) Entrapment of left ulnar nerve Herpes (~1983) History of nephrolithiasis History of squamous cell carcinoma (~1993) Hyperlipidemia (~2007) Hypertension Insomnia with sleep apnea, unspecified Left elbow pain Lesion of adrenal gland Nasal obstruction Neoplasm of nose Obstructive sleep apnea Osteoporosis (~2009) Prediabetes Renal calculus, left Renal colic on right side Respiratory obstruction Sciatica (~2014) Snoring Status post extracorporeal shock wave therapy (12/20/19) Ureteral calculus, right Past Surgical History (Last Reviewed 12/15/21 @ 13:56 by Juvencio Jones DO) Anesthesia Carpal tunnel syndrome on both sides (~2016) Cubital tunnel syndrome, bilateral (~2016) History of colonoscopy (11/04/19) History of oral surgery Status post surgical removal of neoplasm of skin Visit Care Team Role Provider Type Juvencio Jones DO Attending Provider Physician Family Provider Primary Care Provider Referring Provider Specialty: Family Practice Address: [address] [place] [address] Email: [email or web address] Physical Therapy Initial Evaluation PT-OP-A Visit Information Start: 01/20/22 18:13 Freq: Status: Active Protocol: Document 01/25/22 09:50 [facility] (Rec: 01/25/22 10:37 [facility] [id number]) Out-Patient Physical Therapy Visit Information Visit Information Visit Type Initial Evaluation Visit Start Time 09:52 Visit Stop Time 10:37 Total Visit Minutes 45 Visit Number 1 Number of SOL[employer]WOR[employer] DRAFTER Visits 0 PT-OP-B Current Condition Start: 01/20/22 18:13 Freq: Status: Active Protocol: Document 01/25/22 09:50 [facility] (Rec: 01/25/22 10:37 [facility] [id number]) Current Condition History of Current Condition Onset Date early this year Current Complaints L arm pain History of Current Condition Pt had EMG recently and that showed that there is a lesion at his elbow. He had an ulnar n release on R side. His left arm gives him pain so much now that its hard to sleep. The shoulder is now hard to move and he can't scratch his back and taht started 3 months ago. At the begining of this year, he did a lot of heavy work and was on a 3 month trip and mid November was when his shoulder and arm got really bad. His R side is still a little flared up. He ices and keeps elbow straight. He has a funny feeling that is like surface tingling on L scap region. He has a referral to surgeon who did his R arm. He did have a nerve conduction study on B prior to R sided surgery in and it showed slowing of n. conduction at elbow on B sides but only R gave pain. He has been protective of the area. He takes ibuprofen and tylenol and if he stops taking , it is very painful. He likes to work on his boat out and robert moore does a lot of work on the boat and that can irritate his elbow. Pt reports a serious neck ache started 2 days ago when working on boat . It hurt so bad taht when he swallowed he had a twinge in his neck. About 2012 and he had severe R arm pain and it was traced to his neck and he had 4 cortizone injections and it went away. Pt reports sometimes he has pain down his R leg. He sidesleeps and has trouble sleeping Prior Treatments and Tests EMG xray shoulder : IMPRESSION: There are mild degenerative changes seen by plain film. Treatment Goals Patient/Caregiver Goals Be hortencia to fish and get dressed w/o pain, be less aprehensive about carrying things, be able to sleep, be able to golf, be able to scratch back PT-OP-C Subjective Start: 01/20/22 18:13 Freq: Status: Active Protocol: Document 01/25/22 09:50 [facility] (Rec: 01/25/22 10:37 [facility] [id number]) Patient Questionnaires Quick Dash- Upper Extremity Quick Dash UE Score 68.18 OP-PT Pain Assessment Location L arm Pain Location Details L lat shoulder, lat forearm to fingers4&5, med elbow Scale Used 2/10;worst 7/10 Radiating Location tingling in scap region-feels like it needs to be itched all the time Variations/Patterns sometimes palm and lat thumb Pain Aggravating Factors ADL's Other Pain Aggravating Factors lay down at night, inactivity, overhead, reach behind Pain Alleviating Factors Cold,Heat,Medication Other Pain Alleviating Factors movement PT-OP-F Manual Assessment Start: 01/20/22 18:13 Freq: Status: Active Protocol: Document 01/25/22 09:50 [facility] (Rec: 01/25/22 10:37 [facility] [id number]) Manual Assessments Soft Tissue Assessment Soft Tissue Mobility Assessment L UT, scalenes, LS, pec, rhomboids, biceps-tightness and tender; supraspinatus tendon tender PT-OP-K Range of Motion Start: 01/20/22 18:13 Freq: Status: Active Protocol: Document 01/25/22 09:50 [facility] (Rec: 01/25/22 10:37 [facility] [id number]) Cervical Spine Range of Motion Cervical Spine Active Degrees Flexion 60 Extension 45 Rotation Left 60 Rotation Right 48 Lateral Flexion Left 33 Lateral Flexion Right 23 Comments tightness post w/flex/ext & r rot; tightnes B w/L SB, R SB L tightness Shoulder Goniometric Range of Motion Shoulder Left Passive Flexion 112 Abduction 100 External Rotation at 45 degrees 50 Abduction Internal Rotation 85 Right Active Flexion 153 Extension 70 Abduction 160 External Rotation at 0 degrees Abduction 53 Internal Rotation Behind Back (text) T7 Left Active Flexion 92 Extension 39 Abduction 54 External Rotation at 0 degrees Abduction 3 Internal Rotation Behind Back (text) L1 PT-OP-L Special Tests Start: 01/20/22 18:13 Freq: Status: Active Protocol: Document 01/25/22 09:50 [facility] (Rec: 01/25/22 10:37 [facility] [id number]) Special Tests Cervical Spine Special Tests Vertebral Artery Test Results neg Alar Ligament Test Results neg Spurling's Test Test Results neg Shoulder Special Tests Empty Can Test Results positive L [place] Test Test Results less pain than speeds Yergason's Biceps Test Results neg L-pain in fingers after Speed's Biceps Test Results positive Bronson Ralph Impingement Test Results pos L Neer Impingement Test Results pos L AC Joint Compression Test Results neg L Neural Special Tests- Upper Body Median Nerve Tension Test Results Positive L -pain in shoulder that dec when wrist taken out of ext Radial Nerve Tension Test Results L positive-tightness that dec w/wrist to neutral vs ext Ulnar Nerve Tension Test Results positive L PT-OP-M Strength Start: 01/20/22 18:13 Freq: Status: Active Protocol: Document 01/25/22 09:50 [facility] (Rec: 01/25/22 10:37 [facility] [id number]) Shoulder Strength Shoulder Manual Muscle Testing Right Flexion 5 Normal Extension 5 Normal Abduction (C5) 5 Normal External Rotation 5 Normal Internal Rotation 5 Normal Left Flexion 4 Good Extension 4 Good Abduction (C5) 2 Poor External Rotation 3+ Fair+ Internal Rotation 4- Good- Comments pain Elbow/Forearm Strength Elbow and Forearm Manual Muscle Testing Right Flexion (C6) 5 Normal Extension (C7) 5 Normal Pronation 4 Good Supination 5 Normal Left Flexion (C6) 3+ Fair+ Extension (C7) 4 Good Pronation 4 Good Supination 4- Good- Comments pain PT-OP-T Assessment and Plan Start: 01/20/22 18:13 Freq: Status: Active Protocol: Document 01/25/22 09:50 [facility] (Rec: 01/25/22 10:37 [facility] [id number]) Physical Therapy Assessment Rehab Potential Rehabilitation Potential Good Evaluation Complexity Number of Personal Factors/Comorbidities 3 or More Number of Body Systems Impaired 4 or More Clinical Presentation at Evaluation Evolving Impairments Impairments Activity Tolerance,Functional Activities,Functional Mobility ,Pain,ROM,Soft Tissue Mobility Goals Quick dash Impairment 68.18 Short Term Goal (STG) Pt will improve score of quick dash to at least 45 to show improved functional ability. STG Duration 02/24 Usp Goal (LTG) Pt will improve score of quick dash to at least 5 to show improved functional ability. LTG Duration 04/26 sleep Short Term Goal (STG) Pt will be educated in sleep positioning and follow through w/appropriate propping and pain management at night STG Duration 03/25 Usp Goal (LTG) Pt will be able to sleep w/o inc pain in L shoulder or UE LTG Duration 04/26 actvities Short Term Goal (STG) Pt will be able to do ADLs like dressing, bathing and skratching backw /o inc pain STG Duration 03/27 Usp Goal (LTG) Pt will be able to fish, carry objects and golf w/o inc pain . LTG Duration 04/26 strength Short Term Goal (STG) Pt will be indep w/HEP STG Duration 03/15 Usp Goal (LTG) Pt will score 5/5 for MMT on L shoulder and elbow without inc paina nd at last 3/5 on EFT to allow improved stabiltiy to carry objects and do work on boat and house w/o inc pain. LTG Duration 04/26 ROM Short Term Goal (STG) Pt will have no pain w/ cervical ROM and will have equal rotation and SB B STG Duration 03/15 Usp Goal (LTG) Pt will improve AROM of L shoulder to that of R shoulder to allow for pt to do typical daily activities w/o pain LTG Duration 04/26 Assessment Summary Assessment Pt presents w/ L shoulder pain that started 3 months ago w/ history of lower arm pain B in ulnar n distribution that started at the beginning of the year w/a project. He has known ulnar n entrapment B taht has been seen by mult EMGs and had surgery on R in the past but recent study does show b n conduction slowing. He currently lacks L shoulder ROM and is positive for median , radial and ulnar n tension testing on L. He is referredf ro frozen shoulder, but does not have hard end feels w/PROM , but empty end feels. He is positive on testing for irritation to biceps and supraspinatus testing and likely has impingement along w /supraspinatus tendonosis with possible nerve impingement at his cervical vertebrae or in scalenes or pec region w/ possible TOS. He has more winging of L scap which may be contributing to his pain further. Pt would benefit from skilled PT to address his dec ROM, dec strength, significant pain and limited activity. Physical Therapy Plan Frequency and Duration Frequency of Treatment 2x/Week Duration of Treatment 3 months Plan of Care Start Date 01/25/22 Plan of Care End Date 04/26/22 Therapeutic Interventions Therapeutic Interventions Aquatic Therapy,Gait Training, Home Exercise Program,Joint Mobilizations,Manual Therapy, Neuromuscular Re-education, Patient/Caregiver Education, Self-Care/Home Management,Soft Tissue Mobilization,Taping, Therapeutic Activities, Therapeutic Exercises Modalities Cold Pack/Ice Massage,Electric Stimulation,Hot Packs, Infrared Therapy,Ultrasound Next Visit Focus/Plan Next Note Type Treatment Note Next Visit Plan cervical stretches, scap retraction exercises, AAROM shoulder exercises for HEP, manaul to cervical & scap mm for imrpoving ROM
--- NOTE | 2022-01-27 08:32 | PT.OTN ---
Current Diagnoses Stiffness of left shoulder, not elsewhere classified (01/27/22) Cervicalgia (01/27/22) Adhesive capsulitis of left shoulder (01/27/22) Abnormal posture (01/27/22) Weakness (01/27/22) Physical Therapy Treatment Note PT-OP-A Visit Information Start: 01/20/22 18:13 Freq: Status: Active Protocol: Document 01/27/22 07:37 [facility] (Rec: 01/27/22 11:27 [facility] [id number]) Out-Patient Physical Therapy Visit Information Visit Information Visit Type Treatment Note Visit Start Time 07:37 Visit Stop Time 08:32 Total Visit Minutes 55 Visit Number 2 Number of HOOKER LASTER Visits 1 Evaluation Information Evaluation Date 01/25/22 Precautions Precautions Allergic Reaction to Meloxicam . PT-OP-B Current Condition Start: 01/20/22 18:13 Freq: Status: Active Protocol: Document 01/25/22 09:50 [facility] (Rec: 01/25/22 10:37 [facility] [id number]) Current Condition History of Current Condition Onset Date early this year Current Complaints L arm pain History of Current Condition Pt had EMG recently and that showed that there is a lesion at his elbow. He had an ulnar n release on R side. His left arm gives him pain so much now that its hard to sleep. The shoulder is now hard to move and he can't scratch his back and taht started 3 months ago. At the begining of this year, he did a lot of heavy work and was on a 3 month trip and mid November was when his shoulder and arm got really bad. His R side is still a little flared up. He ices and keeps elbow straight. He has a funny feeling that is like surface tingling on L scap region. He has a referral to surgeon who did his R arm. He did have a nerve conduction study on B prior to R sided surgery in and it showed slowing of n. conduction at elbow on B sides but only R gave pain. He has been protective of the area. He takes ibuprofen and tylenol and if he stops taking , it is very painful. He likes to work on his boat out and robert moore does a lot of work on the boat and that can irritate his elbow. Pt reports a serious neck ache started 2 days ago when working on boat . It hurt so bad taht when he swallowed he had a twinge in his neck. About 2012 and he had severe R arm pain and it was traced to his neck and he had 4 cortizone injections and it went away. Pt reports sometimes he has pain down his R leg. He sidesleeps and has trouble sleeping Prior Treatments and Tests EMG xray shoulder : IMPRESSION: There are mild degenerative changes seen by plain film. Treatment Goals Patient/Caregiver Goals Be hortencia to fish and get dressed w/o pain, be less aprehensive about carrying things, be able to sleep, be able to golf, be able to scratch back PT-OP-C Subjective Start: 01/20/22 18:13 Freq: Status: Active Protocol: Document 01/27/22 07:37 [facility] (Rec: 01/27/22 11:27 [facility] [id number]) OP-PT Subjective Patient Comments Patient Comments Pt reported L side neck very tight, L shoulder limited range and L elbow having nerve pain that radiated into dorsal surface of forearm, finds self massaging CET area. PT-OP-F Manual Assessment Start: 01/20/22 18:13 Freq: Status: Active Protocol: Document 01/25/22 09:50 [facility] (Rec: 01/25/22 10:37 [facility] [id number]) Manual Assessments Soft Tissue Assessment Soft Tissue Mobility Assessment L UT, scalenes, LS, pec, rhomboids, biceps-tightness and tender; supraspinatus tendon tender PT-OP-K Range of Motion Start: 01/20/22 18:13 Freq: Status: Active Protocol: Document 01/25/22 09:50 [facility] (Rec: 01/25/22 10:37 [facility] [id number]) Cervical Spine Range of Motion Cervical Spine Active Degrees Flexion 60 Extension 45 Rotation Left 60 Rotation Right 48 Lateral Flexion Left 33 Lateral Flexion Right 23 Comments tightness post w/flex/ext & r rot; tightnes B w/L SB, R SB L tightness Shoulder Goniometric Range of Motion Shoulder Left Passive Flexion 112 Abduction 100 External Rotation at 45 degrees 50 Abduction Internal Rotation 85 Right Active Flexion 153 Extension 70 Abduction 160 External Rotation at 0 degrees Abduction 53 Internal Rotation Behind Back (text) T7 Left Active Flexion 92 Extension 39 Abduction 54 External Rotation at 0 degrees Abduction 3 Internal Rotation Behind Back (text) L1 PT-OP-L Special Tests Start: 01/20/22 18:13 Freq: Status: Active Protocol: Document 01/25/22 09:50 [facility] (Rec: 01/25/22 10:37 [facility] [id number]) Special Tests Cervical Spine Special Tests Vertebral Artery Test Results neg Alar Ligament Test Results neg Spurling's Test Test Results neg Shoulder Special Tests Empty Can Test Results positive L [place] Test Test Results less pain than speeds Yergason's Biceps Test Results neg L-pain in fingers after Speed's Biceps Test Results positive Bronson Ralph Impingement Test Results pos L Neer Impingement Test Results pos L AC Joint Compression Test Results neg L Neural Special Tests- Upper Body Median Nerve Tension Test Results Positive L -pain in shoulder that dec when wrist taken out of ext Radial Nerve Tension Test Results L positive-tightness that dec w/wrist to neutral vs ext Ulnar Nerve Tension Test Results positive L PT-OP-M Strength Start: 01/20/22 18:13 Freq: Status: Active Protocol: Document 01/25/22 09:50 [facility] (Rec: 01/25/22 10:37 [facility] [id number]) Shoulder Strength Shoulder Manual Muscle Testing Right Flexion 5 Normal Extension 5 Normal Abduction (C5) 5 Normal External Rotation 5 Normal Internal Rotation 5 Normal Left Flexion 4 Good Extension 4 Good Abduction (C5) 2 Poor External Rotation 3+ Fair+ Internal Rotation 4- Good- Comments pain Elbow/Forearm Strength Elbow and Forearm Manual Muscle Testing Right Flexion (C6) 5 Normal Extension (C7) 5 Normal Pronation 4 Good Supination 5 Normal Left Flexion (C6) 3+ Fair+ Extension (C7) 4 Good Pronation 4 Good Supination 4- Good- Comments pain PT-OP-Q Treatments Start: 01/20/22 18:13 Freq: Status: Active Protocol: Document 01/27/22 07:37 [facility] (Rec: 01/27/22 11:27 [facility] [id number]) Therapeutic Exercises Supine Exercises shld ER wand Supine Exercise Name trialed in PT- Hold 01/27/22 Side left Resistance AAROM Equipment Used towel under arm/trunk, dowel Reps/Minutes 3 sec hold Comments limited and unable get to neutral, cause increase pain in L elbow so stoppe FF wand Supine Exercise Name added to HEP Side left Resistance AAROM Equipment Used dowel Reps/Minutes x10 reps Comments good feedback response, cued slow painfree ROM- incr range with reps Sidelying Exercises open book Sidelying Exercise Name trialed hand on head elbow bent post manual- HOld for now Side left Equipment Used cued head turn with arm Reps/Minutes x2 reps (contact ease slow movement facilitation scap retract/Dwn Rot glid) Comments caused cramp in lateral ribcage: L mid lat, L serratus anterior scapular PNF Sidelying Exercise Name PROM>AAROM (IN PT) Side left Reps/Minutes 2 min Sitting Exercises L CET MWM massage Sitting Exercise Name added/ reviewed self STMs L forearm CET region Side left Reps/Minutes 30 sec post therapist manual Comments R hand massage to LUE CET forearm and shown pin w/ pronation/supination scap retraction Sitting Exercise Name added to HEP Reps/Minutes 10 s hold x10 Comments cued tall posture gentle and not arms involved rhomboid engagement UT, LS stretching Sitting Exercise Name added to HEP Side left Reps/Minutes 30 x2 Comments cued alignment and gentle light overpressue with opp UE if gd pnfree stretc self STMs Sitting Exercise Name HOOKER LASTER demonstrated: UT, LS, infrasp, interascap Side left Equipment Used theracane MWM posterior neck, ball wall UT, interscap, infraspinatus Comments revisit next tx pt performance Manual Therapy Treatment Soft Tissue Mobilization L forearm Body Location L CET Mobilization Type Cross-Friction,Sustained Pressure,Other Intensity/Depth Moderate Body Position Hooklying Comments manual and instruction self STMs- good response this always feels good with right amount pressure he performs self at home and ices down if needed. L neck, shld Body Location L UT, LS, suprasp, infrasp, lat tricep, middle deltiod dis att, Rhomb, pec Mobilization Type Cross-Friction,Strumming, Sustained Pressure,Other Intensity/Depth Moderate Body Position Sidelying Comments manual and discussion on self application use theracane, racquetball roll on wall (ran out time for pt demonstrate). (add L subscap, serratus anterior, lat future tx) Joint Mobilizations L elbow Joint assess if welcoming future tx Direction med, lat, inferior Comments gentle scapulothoracic Joint L Direction retract, downward rotation Grade II Body Position Sidelying Comments manual and instruction on fluid ease PROM> AAROM movement. Reports little discomfort over posterior AC and lateral tricep L GH jt Joint L Direction posterior, inferior Grade II Body Position Hooklying Comments good feedback response painfree PT-OP-R Modalities Start: 01/20/22 18:13 Freq: Status: Active Protocol: Document 01/27/22 07:37 [facility] (Rec: 01/27/22 11:27 SP [id number]) Hot Pack/Cold Pack Treatment MHP Location posterior neck Patient Position Hooklying Treatment Duration (minutes) 10 Patient Tolerance Good Comments good feedback response- relaxes neck post manual and HEP review. Pt reported ordered a HP already for neck to help decrease tightness. CP Location L forearm/elbow Patient Position Hooklying Treatment Duration (minutes) 10 Patient Tolerance Good Comments good response- lessens discomfort. Pt reports applies ice at home for pain control. PT-OP-T Assessment and Plan Start: 01/20/22 18:13 Freq: Status: Active Protocol: Document 01/27/22 07:37 [facility] (Rec: 01/27/22 11:27 SP [id number]) Physical Therapy Assessment Goals Quick dash Impairment 68.18 Short Term Goal (STG) Pt will improve score of quick dash to at least 45 to show improved functional ability. STG Duration 02/24 Senior Living Goal (LTG) Pt will improve score of quick dash to at least 5 to show improved functional ability. LTG Duration 04/26 sleep Short Term Goal (STG) Pt will be educated in sleep positioning and follow through w/appropriate propping and pain management at night STG Duration 03/25 [employer] Goal (LTG) Pt will be able to sleep w/o inc pain in L shoulder or UE LTG Duration 04/26 actvities Short Term Goal (STG) Pt will be able to do ADLs like dressing, bathing and skratching backw /o inc pain STG Duration 03/27 Senior Living Goal (LTG) Pt will be able to fish, carry objects and golf w/o inc pain . LTG Duration 04/26 strength Short Term Goal (STG) Pt will be indep w/HEP STG Duration 03/15 Senior Living Goal (LTG) Pt will score 5/5 for MMT on L shoulder and elbow without inc paina nd at last 3/5 on EFT to allow improved stabiltiy to carry objects and do work on boat and house w/o inc pain. LTG Duration 04/26 ROM Short Term Goal (STG) Pt will have no pain w/ cervical ROM and will have equal rotation and SB B STG Duration 03/15 Senior Living Goal (LTG) Pt will improve AROM of L shoulder to that of R shoulder to allow for pt to do typical daily activities w/o pain LTG Duration 04/26 Assessment Summary Assessment Pt good feedback response to manual STMs, gentle jt mobs, added neck stretching and AAROM to L shld, self STMs and initated scap stabilization exercises to do at home. He is very limited in L shld ER that causes elbow pain. Has nerve irritation with arm away from body, causious into these movements at this time. Pt welcoming and responded well to MHP neck and CP to L elbow end tx to lessen soreness/discomfort response to tx and will carryover at home for self support needed. Physical Therapy Plan Frequency and Duration Frequency of Treatment 2x/Week Duration of Treatment 3 months Plan of Care Start Date 01/25/22 Plan of Care End Date 04/26/22 Therapeutic Interventions Therapeutic Interventions Aquatic Therapy,Gait Training, Home Exercise Program,Joint Mobilizations,Manual Therapy, Neuromuscular Re-education, Patient/Caregiver Education, Self-Care/Home Management,Soft Tissue Mobilization,Taping, Therapeutic Activities, Therapeutic Exercises Modalities Cold Pack/Ice Massage,Electric Stimulation,Hot Packs, Infrared Therapy,Ultrasound Next Visit Focus/Plan Next Note Type Treatment Note Next Visit Plan HEP review initiated last tx. POC: continue AAROM shoulder exercises for HEP, manaul to cervical & scap mm for improving ROM. Assess support for elbow pain. See precautions.
--- NOTE | 2022-02-01 12:37 | PT.OTN ---
Current Diagnoses Stiffness of left shoulder, not elsewhere classified (02/01/22) Cervicalgia (02/01/22) Adhesive capsulitis of left shoulder (02/01/22) Abnormal posture (02/01/22) Weakness (02/01/22) Physical Therapy Treatment Note PT-OP-A Visit Information Start: 01/20/22 18:13 Freq: Status: Active Protocol: Document 02/01/22 08:39 AW (Rec: 02/01/22 09:49 AW [id number]) Out-Patient Physical Therapy Visit Information Visit Information Visit Type Treatment Note Visit Number 3 Number of APARTMENT MAINTENANCE MANAGER Visits 0 Evaluation Information Evaluation Date 01/25/22 Precautions Precautions Allergic Reaction to Meloxicam . PT-OP-B Current Condition Start: 01/20/22 18:13 Freq: Status: Active Protocol: Document 01/25/22 09:50 LR (Rec: 01/25/22 10:37 [facility] [id number]) Current Condition History of Current Condition Onset Date early this year Current Complaints L arm pain History of Current Condition Pt had EMG recently and that showed that there is a lesion at his elbow. He had an ulnar n release on R side. His left arm gives him pain so much now that its hard to sleep. The shoulder is now hard to move and he can't scratch his back and taht started 3 months ago. At the begining of this year, he did a lot of heavy work and was on a 3 month trip and mid November was when his shoulder and arm got really bad. His R side is still a little flared up. He ices and keeps elbow straight. He has a funny feeling that is like surface tingling on L scap region. He has a referral to surgeon who did his R arm. He did have a nerve conduction study on B prior to R sided surgery in and it showed slowing of n. conduction at elbow on B sides but only R gave pain. He has been protective of the area. He takes ibuprofen and tylenol and if he stops taking , it is very painful. He likes to work on his boat out and robert moore does a lot of work on the boat and that can irritate his elbow. Pt reports a serious neck ache started 2 days ago when working on boat . It hurt so bad taht when he swallowed he had a twinge in his neck. About 2012 and he had severe R arm pain and it was traced to his neck and he had 4 cortizone injections and it went away. Pt reports sometimes he has pain down his R leg. He sidesleeps and has trouble sleeping Prior Treatments and Tests EMG xray shoulder : IMPRESSION: There are mild degenerative changes seen by plain film. Treatment Goals Patient/Caregiver Goals Be hortencia to fish and get dressed w/o pain, be less aprehensive about carrying things, be able to sleep, be able to golf, be able to scratch back PT-OP-C Subjective Start: 01/20/22 18:13 Freq: Status: Active Protocol: Document 02/01/22 08:39 AW (Rec: 02/01/22 09:49 AW [id number]) OP-PT Subjective Patient Comments Patient Comments Pt arrives with own theracane which he has found helpful Patient Reported Progress Same PT-OP-F Manual Assessment Start: 01/20/22 18:13 Freq: Status: Active Protocol: Document 01/25/22 09:50 [facility] (Rec: 01/25/22 10:37 [facility] [id number]) Manual Assessments Soft Tissue Assessment Soft Tissue Mobility Assessment L UT, scalenes, LS, pec, rhomboids, biceps-tightness and tender; supraspinatus tendon tender PT-OP-K Range of Motion Start: 01/20/22 18:13 Freq: Status: Active Protocol: Document 01/25/22 09:50 [facility] (Rec: 01/25/22 10:37 [facility] [id number]) Cervical Spine Range of Motion Cervical Spine Active Degrees Flexion 60 Extension 45 Rotation Left 60 Rotation Right 48 Lateral Flexion Left 33 Lateral Flexion Right 23 Comments tightness post w/flex/ext & r rot; tightnes B w/L SB, R SB L tightness Shoulder Goniometric Range of Motion Shoulder Left Passive Flexion 112 Abduction 100 External Rotation at 45 degrees 50 Abduction Internal Rotation 85 Right Active Flexion 153 Extension 70 Abduction 160 External Rotation at 0 degrees Abduction 53 Internal Rotation Behind Back (text) T7 Left Active Flexion 92 Extension 39 Abduction 54 External Rotation at 0 degrees Abduction 3 Internal Rotation Behind Back (text) L1 PT-OP-L Special Tests Start: 01/20/22 18:13 Freq: Status: Active Protocol: Document 01/25/22 09:50 [facility] (Rec: 01/25/22 10:37 [facility] [id number]) Special Tests Cervical Spine Special Tests Vertebral Artery Test Results neg Alar Ligament Test Results neg Spurling's Test Test Results neg Shoulder Special Tests Empty Can Test Results positive L [place] Test Test Results less pain than speeds Yergason's Biceps Test Results neg L-pain in fingers after Speed's Biceps Test Results positive Bronson Ralph Impingement Test Results pos L Neer Impingement Test Results pos L AC Joint Compression Test Results neg L Neural Special Tests- Upper Body Median Nerve Tension Test Results Positive L -pain in shoulder that dec when wrist taken out of ext Radial Nerve Tension Test Results L positive-tightness that dec w/wrist to neutral vs ext Ulnar Nerve Tension Test Results positive L PT-OP-M Strength Start: 01/20/22 18:13 Freq: Status: Active Protocol: Document 01/25/22 09:50 [facility] (Rec: 01/25/22 10:37 [facility] [id number]) Shoulder Strength Shoulder Manual Muscle Testing Right Flexion 5 Normal Extension 5 Normal Abduction (C5) 5 Normal External Rotation 5 Normal Internal Rotation 5 Normal Left Flexion 4 Good Extension 4 Good Abduction (C5) 2 Poor External Rotation 3+ Fair+ Internal Rotation 4- Good- Comments pain Elbow/Forearm Strength Elbow and Forearm Manual Muscle Testing Right Flexion (C6) 5 Normal Extension (C7) 5 Normal Pronation 4 Good Supination 5 Normal Left Flexion (C6) 3+ Fair+ Extension (C7) 4 Good Pronation 4 Good Supination 4- Good- Comments pain PT-OP-Q Treatments Start: 01/20/22 18:13 Freq: Status: Active Protocol: Document 02/01/22 08:39 AW (Rec: 02/01/22 09:49 AW [id number]) Therapeutic Exercises Supine Exercises shld ER wand Supine Exercise Name reassessed - clinic only Side left Resistance AAROM Equipment Used towel under arm/trunk, dowel Reps/Minutes 3 sec hold Comments cued scap retract/depress and pt able to get slight past neutral w/o pain FF wand Supine Exercise Name added to HEP Side left Resistance AAROM Equipment Used dowel Reps/Minutes x10 reps Comments good feedback response, cued slow painfree ROM- incr range with reps Sidelying Exercises scapular PNF Sidelying Exercise Name PROM>AAROM (IN PT) Side left Sitting Exercises scap retraction Sitting Exercise Name reviewed Reps/Minutes 10 s hold x10 Comments cued tall posture gentle and not arms involved rhomboid engagement UT, LS stretching Sitting Exercise Name reviewed Side left Reps/Minutes 30 x2 Comments cued alignment and gentle light overpressue with opp UE if gd pnfree stretc self STMs Comments with pt's own theracane Therapeutic Activity Therapeutic Activity sleep position Comments Educated pt on cervical neutral in sidelying and experimented with pillow height. Edu pt to have spouse take pictures of pt in sidelying sleep position to assess cervical neutral. Manual Therapy Treatment Soft Tissue Mobilization L neck, shld Body Location L UT, LS, suprasp, infrasp, lat tricep, middle deltiod dis att, Rhomb, pec Mobilization Type Cross-Friction,Strumming, Sustained Pressure,Other Intensity/Depth Moderate Body Position Sidelying Comments PT driven manual and self-STM with own theracane (add L subscap, serratus anterior, lat future tx) Joint Mobilizations scapulothoracic Joint L Direction retract, downward rotation Grade III Body Position Sidelying Comments PROM>AAROM no discomfort L GH jt Joint L Direction posterior, inferior Grade II Body Position Hooklying Comments good feedback response painfree PT-OP-R Modalities Start: 01/20/22 18:13 Freq: Status: Active Protocol: Document 02/01/22 08:39 AW (Rec: 02/01/22 09:49 AW [id number]) Hot Pack/Cold Pack Treatment MHP Location posterior neck Patient Position Hooklying Treatment Duration (minutes) 10 Patient Tolerance Good Comments good feedback response- relaxes neck post manual and HEP review. CP Location L forearm/elbow Patient Position Hooklying Treatment Duration (minutes) 10 Patient Tolerance Good Comments good response- lessens discomfort. Pt reports applies ice at home for pain control. PT-OP-T Assessment and Plan Start: 01/20/22 18:13 Freq: Status: Active Protocol: Document 02/01/22 08:39 AW (Rec: 02/01/22 09:49 AW [id number]) Physical Therapy Assessment Goals Quick dash Impairment 68.18 Short Term Goal (STG) Pt will improve score of quick dash to at least 45 to show improved functional ability. STG Duration 1013 Penitentiary Goal (LTG) Pt will improve score of quick dash to at least 5 to show improved functional ability. LTG Duration 12/ sleep Short Term Goal (STG) Pt will be educated in sleep positioning and follow through w/appropriate propping and pain management at night STG Duration 03/25 Health Evaluator Goal (LTG) Pt will be able to sleep w/o inc pain in L shoulder or UE LTG Duration 04/26 actvities Short Term Goal (STG) Pt will be able to do ADLs like dressing, bathing and skratching backw /o inc pain STG Duration 03/27 Health Evaluator Goal (LTG) Pt will be able to fish, carry objects and golf w/o inc pain . LTG Duration 04/26 strength Short Term Goal (STG) Pt will be indep w/HEP STG Duration 03/15 Penitentiary Goal (LTG) Pt will score 5/5 for MMT on L shoulder and elbow without inc paina nd at last 3/5 on EFT to allow improved stabiltiy to carry objects and do work on boat and house w/o inc pain. LTG Duration 04/26 ROM Short Term Goal (STG) Pt will have no pain w/ cervical ROM and will have equal rotation and SB B STG Duration 03/15 Penitentiary Goal (LTG) Pt will improve AROM of L shoulder to that of R shoulder to allow for pt to do typical daily activities w/o pain LTG Duration 04/26 Assessment Summary Assessment Pt improved flexion AAROM and was able to get slightly past neutral with ER AAROM when cued for scapular control. Plan to continue STMs and progress AAROM as able. Physical Therapy Plan Frequency and Duration Frequency of Treatment 2x/Week Duration of Treatment 3 months Plan of Care Start Date 01/25/22 Plan of Care End Date 04/26/22 Therapeutic Interventions Therapeutic Interventions Aquatic Therapy,Gait Training, Home Exercise Program,Joint Mobilizations,Manual Therapy, Neuromuscular Re-education, Patient/Caregiver Education, Self-Care/Home Management,Soft Tissue Mobilization,Taping, Therapeutic Activities, Therapeutic Exercises Modalities Cold Pack/Ice Massage,Electric Stimulation,Hot Packs, Infrared Therapy,Ultrasound Next Visit Focus/Plan Next Note Type Treatment Note Next Visit Plan HEP review initiated last tx. POC: continue AAROM shoulder exercises for HEP, manaul to cervical & scap mm for improving ROM. Assess support for elbow pain. See precautions.
--- NOTE | 2022-02-04 10:28 | PT.OTN ---
Current Diagnoses Stiffness of left shoulder, not elsewhere classified (02/04/22) Cervicalgia (02/04/22) Adhesive capsulitis of left shoulder (02/04/22) Abnormal posture (02/04/22) Weakness (02/04/22) Physical Therapy Treatment Note PT-OP-A Visit Information Start: 01/20/22 18:13 Freq: Status: Active Protocol: Document 02/04/22 09:46 DC (Rec: 02/04/22 10:28 [facility] [id number]) Out-Patient Physical Therapy Visit Information Visit Information Visit Type Treatment Note Visit Start Time 09:46 Visit Stop Time 10:30 Total Visit Minutes 44 Visit Number 4 Number of ORTHOPAEDIC DOCTOR Visits 0 Evaluation Information Evaluation Date 01/25/22 Precautions Precautions Allergic Reaction to Meloxicam . PT-OP-B Current Condition Start: 01/20/22 18:13 Freq: Status: Active Protocol: Document 01/25/22 09:50 [facility] (Rec: 01/25/22 10:37 [facility] [id number]) Current Condition History of Current Condition Onset Date early this year Current Complaints L arm pain History of Current Condition Pt had EMG recently and that showed that there is a lesion at his elbow. He had an ulnar n release on R side. His left arm gives him pain so much now that its hard to sleep. The shoulder is now hard to move and he can't scratch his back and taht started 3 months ago. At the begining of this year, he did a lot of heavy work and was on a 3 month trip and mid November was when his shoulder and arm got really bad. His R side is still a little flared up. He ices and keeps elbow straight. He has a funny feeling that is like surface tingling on L scap region. He has a referral to surgeon who did his R arm. He did have a nerve conduction study on B prior to R sided surgery in and it showed slowing of n. conduction at elbow on B sides but only R gave pain. He has been protective of the area. He takes ibuprofen and tylenol and if he stops taking , it is very painful. He likes to work on his boat out and robert moore does a lot of work on the boat and that can irritate his elbow. Pt reports a serious neck ache started 2 days ago when working on boat . It hurt so bad taht when he swallowed he had a twinge in his neck. About 2012 and he had severe R arm pain and it was traced to his neck and he had 4 cortizone injections and it went away. Pt reports sometimes he has pain down his R leg. He sidesleeps and has trouble sleeping Prior Treatments and Tests EMG xray shoulder : IMPRESSION: There are mild degenerative changes seen by plain film. Treatment Goals Patient/Caregiver Goals Be hortencia to fish and get dressed w/o pain, be less aprehensive about carrying things, be able to sleep, be able to golf, be able to scratch back PT-OP-C Subjective Start: 01/20/22 18:13 Freq: Status: Active Protocol: Document 02/04/22 09:46 [facility] (Rec: 02/04/22 10:28 [facility] [id number]) OP-PT Subjective Patient Comments Patient Comments Pt reports some popping or strumming feeling when performing his supine shoulder flexion exercises PT-OP-F Manual Assessment Start: 01/20/22 18:13 Freq: Status: Active Protocol: Document 01/25/22 09:50 [facility] (Rec: 01/25/22 10:37 [facility] [id number]) Manual Assessments Soft Tissue Assessment Soft Tissue Mobility Assessment L UT, scalenes, LS, pec, rhomboids, biceps-tightness and tender; supraspinatus tendon tender PT-OP-K Range of Motion Start: 01/20/22 18:13 Freq: Status: Active Protocol: Document 01/25/22 09:50 [facility] (Rec: 01/25/22 10:37 [facility] [id number]) Cervical Spine Range of Motion Cervical Spine Active Degrees Flexion 60 Extension 45 Rotation Left 60 Rotation Right 48 Lateral Flexion Left 33 Lateral Flexion Right 23 Comments tightness post w/flex/ext & r rot; tightnes B w/L SB, R SB L tightness Shoulder Goniometric Range of Motion Shoulder Left Passive Flexion 112 Abduction 100 External Rotation at 45 degrees 50 Abduction Internal Rotation 85 Right Active Flexion 153 Extension 70 Abduction 160 External Rotation at 0 degrees Abduction 53 Internal Rotation Behind Back (text) T7 Left Active Flexion 92 Extension 39 Abduction 54 External Rotation at 0 degrees Abduction 3 Internal Rotation Behind Back (text) L1 PT-OP-L Special Tests Start: 01/20/22 18:13 Freq: Status: Active Protocol: Document 01/25/22 09:50 [facility] (Rec: 01/25/22 10:37 [facility] [id number]) Special Tests Cervical Spine Special Tests Vertebral Artery Test Results neg Alar Ligament Test Results neg Spurling's Test Test Results neg Shoulder Special Tests Empty Can Test Results positive L [place] Test Test Results less pain than speeds Yergason's Biceps Test Results neg L-pain in fingers after Speed's Biceps Test Results positive Bronson Ralph Impingement Test Results pos L Neer Impingement Test Results pos L AC Joint Compression Test Results neg L Neural Special Tests- Upper Body Median Nerve Tension Test Results Positive L -pain in shoulder that dec when wrist taken out of ext Radial Nerve Tension Test Results L positive-tightness that dec w/wrist to neutral vs ext Ulnar Nerve Tension Test Results positive L PT-OP-M Strength Start: 01/20/22 18:13 Freq: Status: Active Protocol: Document 01/25/22 09:50 [facility] (Rec: 01/25/22 10:37 [facility] [id number]) Shoulder Strength Shoulder Manual Muscle Testing Right Flexion 5 Normal Extension 5 Normal Abduction (C5) 5 Normal External Rotation 5 Normal Internal Rotation 5 Normal Left Flexion 4 Good Extension 4 Good Abduction (C5) 2 Poor External Rotation 3+ Fair+ Internal Rotation 4- Good- Comments pain Elbow/Forearm Strength Elbow and Forearm Manual Muscle Testing Right Flexion (C6) 5 Normal Extension (C7) 5 Normal Pronation 4 Good Supination 5 Normal Left Flexion (C6) 3+ Fair+ Extension (C7) 4 Good Pronation 4 Good Supination 4- Good- Comments pain PT-OP-Q Treatments Start: 01/20/22 18:13 Freq: Status: Active Protocol: Document 02/04/22 09:46 [facility] (Rec: 02/04/22 10:28 [facility] [id number]) Therapeutic Exercises Supine Exercises shld ER wand Side left Resistance AAROM Equipment Used dowel Reps/Minutes 3 sec hold Comments discomfort in elbow FF wand Side left Resistance AAROM Equipment Used dowel Reps/Minutes x10 reps Comments good feedback response, cued slow painfree ROM- incr range with reps Sitting Exercises scap retraction Sitting Exercise Name reviewed Reps/Minutes 10 s hold x10 Comments cued tall posture gentle and not arms involved rhomboid engagement Manual Therapy Treatment Soft Tissue Mobilization L neck, shld Body Location L UT, LS, suprasp, infrasp, lat tricep, middle deltiod dis att, Rhomb, pec Mobilization Type Cross-Friction,Strumming, Sustained Pressure,Other Intensity/Depth Moderate Body Position Sidelying Comments PT driven manual and self-STM with own theracane (add L subscap, serratus anterior, lat future tx) Joint Mobilizations scapulothoracic Joint L Direction retract, downward rotation Grade III Body Position Sidelying Comments PROM>AAROM no discomfort L GH jt Joint L Direction posterior, inferior Grade II Body Position Hooklying Comments good feedback response painfree PT-OP-R Modalities Start: 01/20/22 18:13 Freq: Status: Active Protocol: Document 02/01/22 08:39 AW (Rec: 02/01/22 09:49 AW [id number]) Hot Pack/Cold Pack Treatment MHP Location posterior neck Patient Position Hooklying Treatment Duration (minutes) 10 Patient Tolerance Good Comments good feedback response- relaxes neck post manual and HEP review. CP Location L forearm/elbow Patient Position Hooklying Treatment Duration (minutes) 10 Patient Tolerance Good Comments good response- lessens discomfort. Pt reports applies ice at home for pain control. PT-OP-T Assessment and Plan Start: 01/20/22 18:13 Freq: Status: Active Protocol: Document 02/04/22 09:46 [facility] (Rec: 02/04/22 10:28 [facility] [id number]) Physical Therapy Assessment Assessment Summary Assessment Pt tolerated treatment very well, flexion AAROM continues to improve, still very limited with ER due to elbow pain. Pt doing well at this point with HEP Physical Therapy Plan Frequency and Duration Frequency of Treatment 2x/Week Duration of Treatment 3 months Plan of Care Start Date 01/25/22 Plan of Care End Date 04/26/22 Therapeutic Interventions Therapeutic Interventions Aquatic Therapy,Gait Training, Home Exercise Program,Joint Mobilizations,Manual Therapy, Neuromuscular Re-education, Patient/Caregiver Education, Self-Care/Home Management,Soft Tissue Mobilization,Taping, Therapeutic Activities, Therapeutic Exercises Modalities Cold Pack/Ice Massage,Electric Stimulation,Hot Packs, Infrared Therapy,Ultrasound Next Visit Focus/Plan Next Note Type Treatment Note Next Visit Plan HEP review initiated last tx. POC: continue AAROM shoulder exercises for HEP, manaul to cervical & scap mm for improving ROM. Assess support for elbow pain. See precautions.
--- NOTE | 2022-02-08 10:00 | PT.OTN ---
Current Diagnoses Stiffness of left shoulder, not elsewhere classified (02/11/22) Cervicalgia (02/11/22) Adhesive capsulitis of left shoulder (02/11/22) Abnormal posture (02/11/22) Weakness (02/11/22) Physical Therapy Treatment Note PT-OP-A Visit Information Start: 01/20/22 18:13 Freq: Status: Active Protocol: Document 02/08/22 09:03 [facility] (Rec: 02/08/22 12:58 [facility] [id number]) Out-Patient Physical Therapy Visit Information Visit Information Visit Type Treatment Note Visit Start Time 09:02 Visit Stop Time 09:50 Total Visit Minutes 48 Visit Number 5 Number of MEDIA/INSTRUCTIONAL DESIGNER Visits 1 Precautions Precautions Allergic Reaction to Meloxicam . PT-OP-B Current Condition Start: 01/20/22 18:13 Freq: Status: Active Protocol: Document 01/25/22 09:50 [facility] (Rec: 01/25/22 10:37 [facility] [id number]) Current Condition History of Current Condition Onset Date early this year Current Complaints L arm pain History of Current Condition Pt had EMG recently and that showed that there is a lesion at his elbow. He had an ulnar n release on R side. His left arm gives him pain so much now that its hard to sleep. The shoulder is now hard to move and he can't scratch his back and taht started 3 months ago. At the begining of this year, he did a lot of heavy work and was on a 3 month trip and mid November was when his shoulder and arm got really bad. His R side is still a little flared up. He ices and keeps elbow straight. He has a funny feeling that is like surface tingling on L scap region. He has a referral to surgeon who did his R arm. He did have a nerve conduction study on B prior to R sided surgery in and it showed slowing of n. conduction at elbow on B sides but only R gave pain. He has been protective of the area. He takes ibuprofen and tylenol and if he stops taking , it is very painful. He likes to work on his boat out and robert moore does a lot of work on the boat and that can irritate his elbow. Pt reports a serious neck ache started 2 days ago when working on boat . It hurt so bad taht when he swallowed he had a twinge in his neck. About 2012 and he had severe R arm pain and it was traced to his neck and he had 4 cortizone injections and it went away. Pt reports sometimes he has pain down his R leg. He sidesleeps and has trouble sleeping Prior Treatments and Tests EMG xray shoulder : IMPRESSION: There are mild degenerative changes seen by plain film. Treatment Goals Patient/Caregiver Goals Be hortencia to fish and get dressed w/o pain, be less aprehensive about carrying things, be able to sleep, be able to golf, be able to scratch back PT-OP-C Subjective Start: 01/20/22 18:13 Freq: Status: Active Protocol: Document 02/08/22 09:03 [facility] (Rec: 02/08/22 12:58 [facility] [id number]) OP-PT Subjective Patient Comments Patient Comments Pt didn't sleep well due to throbbing pain in his L arm. Pain 4/10. Pt reports more range of motion in L arm. Pt has an appointment on Monday w / orthopedic surgeon about his L elbow. PT-OP-F Manual Assessment Start: 01/20/22 18:13 Freq: Status: Active Protocol: Document 01/25/22 09:50 [facility] (Rec: 01/25/22 10:37 [facility] [id number]) Manual Assessments Soft Tissue Assessment Soft Tissue Mobility Assessment L UT, scalenes, LS, pec, rhomboids, biceps-tightness and tender; supraspinatus tendon tender PT-OP-K Range of Motion Start: 01/20/22 18:13 Freq: Status: Active Protocol: Document 02/11/22 09:50 [facility] (Rec: 02/11/22 10:35 SP [id number]) Shoulder Goniometric Range of Motion Shoulder Left Active Shoulder ROM WFL No Testing Position Supine Flexion 131 Abduction 85 External Rotation at 0 degrees Abduction 9 Internal Rotation Behind Back (text) L1 Comments Improvement L AROM supine: FF: 92>131deg ABD: 54> 85 deg ER arm at side: 3>9 deg PT-OP-L Special Tests Start: 01/20/22 18:13 Freq: Status: Active Protocol: Document 01/25/22 09:50 [facility] (Rec: 01/25/22 10:37 [facility] [id number]) Special Tests Cervical Spine Special Tests Vertebral Artery Test Results neg Alar Ligament Test Results neg Spurling's Test Test Results neg Shoulder Special Tests Empty Can Test Results positive L [place] Test Test Results less pain than speeds Yergason's Biceps Test Results neg L-pain in fingers after Speed's Biceps Test Results positive Bronson Ralph Impingement Test Results pos L Neer Impingement Test Results pos L AC Joint Compression Test Results neg L Neural Special Tests- Upper Body Median Nerve Tension Test Results Positive L -pain in shoulder that dec when wrist taken out of ext Radial Nerve Tension Test Results L positive-tightness that dec w/wrist to neutral vs ext Ulnar Nerve Tension Test Results positive L PT-OP-M Strength Start: 01/20/22 18:13 Freq: Status: Active Protocol: Document 01/25/22 09:50 [facility] (Rec: 01/25/22 10:37 [facility] [id number]) Shoulder Strength Shoulder Manual Muscle Testing Right Flexion 5 Normal Extension 5 Normal Abduction (C5) 5 Normal External Rotation 5 Normal Internal Rotation 5 Normal Left Flexion 4 Good Extension 4 Good Abduction (C5) 2 Poor External Rotation 3+ Fair+ Internal Rotation 4- Good- Comments pain Elbow/Forearm Strength Elbow and Forearm Manual Muscle Testing Right Flexion (C6) 5 Normal Extension (C7) 5 Normal Pronation 4 Good Supination 5 Normal Left Flexion (C6) 3+ Fair+ Extension (C7) 4 Good Pronation 4 Good Supination 4- Good- Comments pain PT-OP-Q Treatments Start: 01/20/22 18:13 Freq: Status: Active Protocol: Document 02/08/22 09:03 [facility] (Rec: 02/08/22 12:58 [facility] [id number]) Therapeutic Exercises Supine Exercises shld ER wand Supine Exercise Name reassessed - clinic only Side left Resistance AAROM Equipment Used dowel Reps/Minutes 3 sec hold Comments discomfort in elbow, pain-free range, gentle pull only FF wand Side left Resistance AAROM Equipment Used dowel Reps/Minutes x10 reps Comments cued scap setting first, slow painfree ROM- incr range with reps Sitting Exercises scap retraction Sitting Exercise Name reviewed Reps/Minutes 10 s hold x10 Comments cued tall posture gentle and not arms involved rhomboid engagement UT, LS stretching Sitting Exercise Name reviewed Side left Reps/Minutes 30 x2 Comments cued alignment and gentle light overpressue with opp UE if gd pnfree stretc self STMs Sitting Exercise Name discussed Comments with pt's own theracane Therapeutic Activity Therapeutic Activity sleep position Comments Reminded pt per 02/01/22 appt to have spouse take pictures of pt in sidelying sleep position to assess cervical neutral. Manual Therapy Treatment Soft Tissue Mobilization L forearm Body Location L CET Mobilization Type Cross-Friction,Sustained Pressure,Other Intensity/Depth Moderate Body Position Hooklying Comments manual and instruction self STMs- good response this always feels good with right amount pressure he performs self at home and ices down if needed. L neck, shld Body Location L UT, LS, suprasp, infrasp, lat tricep, middle deltiod dis att, Rhomb, pec Mobilization Type Cross-Friction,Strumming, Sustained Pressure,Other Intensity/Depth Moderate Body Position Sidelying Comments PT driven manual and self-STM with own theracane to L subscap - cue for positioning (add serratus anterior, lat future tx) PT-OP-R Modalities Start: 01/20/22 18:13 Freq: Status: Active Protocol: Document 02/08/22 09:03 [facility] (Rec: 02/13/22 18:48 [facility] [id number]) Hot Pack/Cold Pack Treatment MHP Location L wilfrido Patient Position Hooklying Treatment Duration (minutes) 10 Patient Tolerance Good CP Location L forearm/elbow Patient Position Hooklying Treatment Duration (minutes) 10 Patient Tolerance Good PT-OP-T Assessment and Plan Start: 01/20/22 18:13 Freq: Status: Active Protocol: Document 02/08/22 09:03 [facility] (Rec: 02/13/22 18:48 [facility] [id number]) Physical Therapy Assessment Goals Quick dash Impairment 68.18 Short Term Goal (STG) Pt will improve score of quick dash to at least 45 to show improved functional ability. STG Duration 02/24 [facility] Goal (LTG) Pt will improve score of quick dash to at least 5 to show improved functional ability. LTG Duration 04/26 sleep Short Term Goal (STG) Pt will be educated in sleep positioning and follow through w/appropriate propping and pain management at night STG Duration 03/25 Athletic Gear Custodian Goal (LTG) Pt will be able to sleep w/o inc pain in L shoulder or UE LTG Duration 04/26 actvities Short Term Goal (STG) Pt will be able to do ADLs like dressing, bathing and skratching backw /o inc pain STG Duration 03/27 Athletic Gear Custodian Goal (LTG) Pt will be able to fish, carry objects and golf w/o inc pain . LTG Duration 04/26 strength Short Term Goal (STG) Pt will be indep w/HEP STG Duration 03/15 Athletic Gear Custodian Goal (LTG) Pt will score 5/5 for MMT on L shoulder and elbow without inc paina nd at last 3/5 on EFT to allow improved stabiltiy to carry objects and do work on boat and house w/o inc pain. LTG Duration 04/26 ROM Short Term Goal (STG) Pt will have no pain w/ cervical ROM and will have equal rotation and SB B STG Duration 03/15 Athletic Gear Custodian Goal (LTG) Pt will improve AROM of L shoulder to that of R shoulder to allow for pt to do typical daily activities w/o pain LTG Duration 04/26 Assessment Summary Assessment Pt requires consistent cues for scapular setting prior to initiating exercises improving pain-free ROM - pt demonstrates improved self- awareness by end of treatment session. Pt needs cues for self-STMs jennifer theracane to L Levator scapula and sufficient hold for trigger point release, and reminders to stay in pain-free range w/ stretches. Pt has improved pain rating from 4/10 prior to treatment to 3/10 end of treatment session. Pt would benefit from continued skilled therapeutic intervention. Physical Therapy Plan Frequency and Duration Frequency of Treatment 2x/Week Duration of treatment (weeks) 12 Plan of Care Start Date 01/25/22 Plan of Care End Date 04/26/22 Therapeutic Interventions Therapeutic Interventions Aquatic Therapy,Gait Training, Home Exercise Program,Joint Mobilizations,Manual Therapy, Neuromuscular Re-education, Patient/Caregiver Education, Self-Care/Home Management,Soft Tissue Mobilization,Taping, Therapeutic Activities, Therapeutic Exercises Modalities Cold Pack/Ice Massage,Electric Stimulation,Hot Packs, Infrared Therapy,Ultrasound Next Visit Focus/Plan Next Note Type Treatment Note Next Visit Plan POC: continue AAROM shoulder exercises for HEP, manaul to cervical & scap mm for improving ROM. Assess support for elbow pain. See precautions.
--- NOTE | 2022-02-11 10:32 | PT.OTN ---
Current Diagnoses Stiffness of left shoulder, not elsewhere classified (02/11/22) Cervicalgia (02/11/22) Adhesive capsulitis of left shoulder (02/11/22) Abnormal posture (02/11/22) Weakness (02/11/22) Physical Therapy Treatment Note PT-OP-A Visit Information Start: 01/20/22 18:13 Freq: Status: Active Protocol: Document 02/11/22 09:50 [facility] (Rec: 02/11/22 10:35 SP [id number]) Out-Patient Physical Therapy Visit Information Visit Information Visit Type Treatment Note Visit Start Time 09:50 Visit Stop Time 10:32 Total Visit Minutes 42 Visit Number 6 Number of MANDATE RETAIL SERVICE MERCHANDISER Visits 2 Evaluation Information Evaluation Date 01/25/22 Precautions Precautions Allergic Reaction to Meloxicam . PT-OP-B Current Condition Start: 01/20/22 18:13 Freq: Status: Active Protocol: Document 01/25/22 09:50 [facility] (Rec: 01/25/22 10:37 [facility] [id number]) Current Condition History of Current Condition Onset Date early this year Current Complaints L arm pain History of Current Condition Pt had EMG recently and that showed that there is a lesion at his elbow. He had an ulnar n release on R side. His left arm gives him pain so much now that its hard to sleep. The shoulder is now hard to move and he can't scratch his back and taht started 3 months ago. At the begining of this year, he did a lot of heavy work and was on a 3 month trip and mid November was when his shoulder and arm got really bad. His R side is still a little flared up. He ices and keeps elbow straight. He has a funny feeling that is like surface tingling on L scap region. He has a referral to surgeon who did his R arm. He did have a nerve conduction study on B prior to R sided surgery in and it showed slowing of n. conduction at elbow on B sides but only R gave pain. He has been protective of the area. He takes ibuprofen and tylenol and if he stops taking , it is very painful. He likes to work on his boat out and robert moore does a lot of work on the boat and that can irritate his elbow. Pt reports a serious neck ache started 2 days ago when working on boat . It hurt so bad taht when he swallowed he had a twinge in his neck. About 2012 and he had severe R arm pain and it was traced to his neck and he had 4 cortizone injections and it went away. Pt reports sometimes he has pain down his R leg. He sidesleeps and has trouble sleeping Prior Treatments and Tests EMG xray shoulder : IMPRESSION: There are mild degenerative changes seen by plain film. Treatment Goals Patient/Caregiver Goals Be hortencia to fish and get dressed w/o pain, be less aprehensive about carrying things, be able to sleep, be able to golf, be able to scratch back PT-OP-C Subjective Start: 01/20/22 18:13 Freq: Status: Active Protocol: Document 02/11/22 09:50 SP (Rec: 02/11/22 10:35 SP [id number]) OP-PT Subjective Patient Comments Patient Comments Pt stated had a painfree day in L arm couple days ago. Feels doing better and making gains in ROM OH. PT-OP-F Manual Assessment Start: 01/20/22 18:13 Freq: Status: Active Protocol: Document 01/25/22 09:50 [facility] (Rec: 01/25/22 10:37 [facility] [id number]) Manual Assessments Soft Tissue Assessment Soft Tissue Mobility Assessment L UT, scalenes, LS, pec, rhomboids, biceps-tightness and tender; supraspinatus tendon tender PT-OP-K Range of Motion Start: 01/20/22 18:13 Freq: Status: Active Protocol: Document 02/11/22 09:50 SP (Rec: 02/11/22 10:35 SP [id number]) Shoulder Goniometric Range of Motion Shoulder Left Active Shoulder ROM WFL No Testing Position Supine Flexion 131 Abduction 85 External Rotation at 0 degrees Abduction 9 Internal Rotation Behind Back (text) L1 Comments Improvement L AROM supine: FF: 92>131deg ABD: 54> 85 deg ER arm at side: 3>9 deg PT-OP-L Special Tests Start: 01/20/22 18:13 Freq: Status: Active Protocol: Document 01/25/22 09:50 [facility] (Rec: 01/25/22 10:37 [facility] [id number]) Special Tests Cervical Spine Special Tests Vertebral Artery Test Results neg Alar Ligament Test Results neg Spurling's Test Test Results neg Shoulder Special Tests Empty Can Test Results positive L [place] Test Test Results less pain than speeds Yergason's Biceps Test Results neg L-pain in fingers after Speed's Biceps Test Results positive Bronson Ralph Impingement Test Results pos L Neer Impingement Test Results pos L AC Joint Compression Test Results neg L Neural Special Tests- Upper Body Median Nerve Tension Test Results Positive L -pain in shoulder that dec when wrist taken out of ext Radial Nerve Tension Test Results L positive-tightness that dec w/wrist to neutral vs ext Ulnar Nerve Tension Test Results positive L PT-OP-M Strength Start: 01/20/22 18:13 Freq: Status: Active Protocol: Document 01/25/22 09:50 [facility] (Rec: 01/25/22 10:37 [facility] [id number]) Shoulder Strength Shoulder Manual Muscle Testing Right Flexion 5 Normal Extension 5 Normal Abduction (C5) 5 Normal External Rotation 5 Normal Internal Rotation 5 Normal Left Flexion 4 Good Extension 4 Good Abduction (C5) 2 Poor External Rotation 3+ Fair+ Internal Rotation 4- Good- Comments pain Elbow/Forearm Strength Elbow and Forearm Manual Muscle Testing Right Flexion (C6) 5 Normal Extension (C7) 5 Normal Pronation 4 Good Supination 5 Normal Left Flexion (C6) 3+ Fair+ Extension (C7) 4 Good Pronation 4 Good Supination 4- Good- Comments pain PT-OP-Q Treatments Start: 01/20/22 18:13 Freq: Status: Active Protocol: Document 02/11/22 09:50 SP (Rec: 02/11/22 10:35 SP [id number]) Therapeutic Exercises Supine Exercises shld ER wand Supine Exercise Name added to HEP Side left Resistance AAROM Equipment Used towel roll under arm, dowel Reps/Minutes 5-10 sec hold x10 Comments cued elbow flexion, painfree only tension stretch range FF wand Side left Resistance AAROM Equipment Used dowel Reps/Minutes x10 reps Comments cued scap setting first, slow painfree ROM- incr range with reps 148 deg Sidelying Exercises shld ER Sidelying Exercise Name added to HEP Side left Resistance AROM Reps/Minutes x10 Comments cued with good self scap stab scapular PNF Sidelying Exercise Name PROM>AAROM faciliated with manual for scap stab and lessen compen awareness Side left Reps/Minutes 3 min Standing Exercises Eccentric L shld ER Standing Exercise Name IN PT trial Side left Resistance TB #1 Equipment Used towel roll under arm Reps/Minutes x5 reps Comments challenge maintaining trunk and shld/scap stab alig, shld ER Standing Exercise Name added to HEP alternative to supine Side left Resistance AAROM Equipment Used wand, back to wall Reps/Minutes hold 10 sec, x5 Comments cued alignment Manual Therapy Treatment Soft Tissue Mobilization L neck, shld Body Location L UT, LS, suprasp, infrasp, lat tricep, middle deltiod dis att, Rhomb, pec Mobilization Type Cross-Friction,Strumming, Sustained Pressure,Other Intensity/Depth Moderate Body Position Sidelying Comments PT driven manual and self-STM with own theracane (add L subscap, serratus anterior, lat future tx) Joint Mobilizations scapulothoracic Joint L Direction retract, downward rotation Grade II Body Position Sidelying Comments PROM>AAROM no discomfort, resistive eccentric retraction . L GH jt Joint L Direction posterior, inferior Grade II Body Position Hooklying Comments good feedback response painfree PT-OP-R Modalities Start: 01/20/22 18:13 Freq: Status: Active Protocol: Document 02/01/22 08:39 AW (Rec: 02/01/22 09:49 AW [id number]) Hot Pack/Cold Pack Treatment MHP Location posterior neck Patient Position Hooklying Treatment Duration (minutes) 10 Patient Tolerance Good Comments good feedback response- relaxes neck post manual and HEP review. CP Location L forearm/elbow Patient Position Hooklying Treatment Duration (minutes) 10 Patient Tolerance Good Comments good response- lessens discomfort. Pt reports applies ice at home for pain control. PT-OP-T Assessment and Plan Start: 01/20/22 18:13 Freq: Status: Active Protocol: Document 02/11/22 09:50 SP (Rec: 02/11/22 10:35 SP [id number]) Physical Therapy Assessment Goals Quick dash Impairment 68.18 Short Term Goal (STG) Pt will improve score of quick dash to at least 45 to show improved functional ability. STG Duration 02/24 [facility] Goal (LTG) Pt will improve score of quick dash to at least 5 to show improved functional ability. LTG Duration 04/26 sleep Short Term Goal (STG) Pt will be educated in sleep positioning and follow through w/appropriate propping and pain management at night STG Duration 03/25 Social Service Liaison Goal (LTG) Pt will be able to sleep w/o inc pain in L shoulder or UE LTG Duration 04/26 actvities Short Term Goal (STG) Pt will be able to do ADLs like dressing, bathing and skratching backw /o inc pain STG Duration 03/27 Social Service Liaison Goal (LTG) Pt will be able to fish, carry objects and golf w/o inc pain . LTG Duration 04/26 strength Short Term Goal (STG) Pt will be indep w/HEP STG Duration 03/15 [facility] Goal (LTG) Pt will score 5/5 for MMT on L shoulder and elbow without inc paina nd at last 3/5 on EFT to allow improved stabiltiy to carry objects and do work on boat and house w/o inc pain. LTG Duration 04/26 ROM Short Term Goal (STG) Pt will have no pain w/ cervical ROM and will have equal rotation and SB B STG Duration 03/15 Social Service Liaison Goal (LTG) Pt will improve AROM of L shoulder to that of R shoulder to allow for pt to do typical daily activities w/o pain LTG Duration 04/26 Progress Towards Goals Progress Comments Improvement L shld AROM supine : 02/11/22 FF: 92>131deg ABD: 54> 85 deg ER arm at side: 3>9 deg Assessment Summary Assessment Pt is making gains overall in AROM with notes measurements taken today. He continues have limited ROM in L shld ER, added to HEP but continues to report increased reps spent causes L elbow pain. Improved lessen UT and pec recruitment compensations post education supine better than standing better than eccentric TB ER. Physical Therapy Plan Frequency and Duration Frequency of Treatment 2x/Week Duration of treatment (weeks) 12 Plan of Care Start Date 01/25/22 Plan of Care End Date 04/26/22 Therapeutic Interventions Therapeutic Interventions Aquatic Therapy,Gait Training, Home Exercise Program,Joint Mobilizations,Manual Therapy, Neuromuscular Re-education, Patient/Caregiver Education, Self-Care/Home Management,Soft Tissue Mobilization,Taping, Therapeutic Activities, Therapeutic Exercises Modalities Cold Pack/Ice Massage,Electric Stimulation,Hot Packs, Infrared Therapy,Ultrasound Next Visit Focus/Plan Next Note Type Treatment Note Next Visit Plan Recheck L shld ER w/ wand. POC: continue AAROM shoulder exercises for HEP, manaul to cervical & scap mm for improving ROM. Assess support for elbow pain. See precautions.
--- NOTE | 2022-04-19 11:59 | PT.OPDS ---
Current Diagnoses Stiffness of left shoulder, not elsewhere classified (02/11/22) Cervicalgia (02/11/22) Adhesive capsulitis of left shoulder (02/11/22) Abnormal posture (02/11/22) Weakness (02/11/22) Visit Care Team Role Provider Type Juvencio Jones DO Attending Provider Physician Family Provider Primary Care Provider Referring Provider Specialty: [facility] Practice Address: [address] [place] [address], [facility] Email: [email or web address] Visit Number Visit Number 6 Discharge Summary PT-OP-B Current Condition Start: 01/20/22 18:13 Freq: Status: Active Protocol: Document 01/25/22 09:50 [facility] (Rec: 01/25/22 10:37 [facility] [id number]) Current Condition History of Current Condition Onset Date early this year Current Complaints L arm pain History of Current Condition Pt had EMG recently and that showed that there is a lesion at his elbow. He had an ulnar n release on R side. His left arm gives him pain so much now that its hard to sleep. The shoulder is now hard to move and he can't scratch his back and taht started 3 months ago. At the begining of this year, he did a lot of heavy work and was on a 3 month trip and mid November was when his shoulder and arm got really bad. His R side is still a little flared up. He ices and keeps elbow straight. He has a funny feeling that is like surface tingling on L scap region. He has a referral to surgeon who did his R arm. He did have a nerve conduction study on B prior to R sided surgery in and it showed slowing of n. conduction at elbow on B sides but only R gave pain. He has been protective of the area. He takes ibuprofen and tylenol and if he stops taking , it is very painful. He likes to work on his boat out and robert moore does a lot of work on the boat and that can irritate his elbow. Pt reports a serious neck ache started 2 days ago when working on boat . It hurt so bad taht when he swallowed he had a twinge in his neck. About 2012 and he had severe R arm pain and it was traced to his neck and he had 4 cortizone injections and it went away. Pt reports sometimes he has pain down his R leg. He sidesleeps and has trouble sleeping Prior Treatments and Tests EMG xray shoulder : IMPRESSION: There are mild degenerative changes seen by plain film. Treatment Goals Patient/Caregiver Goals Be hortencia to fish and get dressed w/o pain, be less aprehensive about carrying things, be able to sleep, be able to golf, be able to scratch back PT-OP-C Subjective Start: 01/20/22 18:13 Freq: Status: Active Protocol: Document 02/11/22 09:50 [facility] (Rec: 02/11/22 10:35 [facility] [id number]) OP-PT Subjective Patient Comments Patient Comments Pt stated had a painfree day in L arm couple days ago. Feels doing better and making gains in ROM OH. PT-OP-F Manual Assessment Start: 01/20/22 18:13 Freq: Status: Active Protocol: Document 01/25/22 09:50 [facility] (Rec: 01/25/22 10:37 [facility] [id number]) Manual Assessments Soft Tissue Assessment Soft Tissue Mobility Assessment L UT, scalenes, LS, pec, rhomboids, biceps-tightness and tender; supraspinatus tendon tender PT-OP-K Range of Motion Start: 01/20/22 18:13 Freq: Status: Active Protocol: Document 02/11/22 09:50 [facility] (Rec: 02/11/22 10:35 SP [id number]) Shoulder Goniometric Range of Motion Shoulder Left Active Shoulder ROM WFL No Testing Position Supine Flexion 131 Abduction 85 External Rotation at 0 degrees Abduction 9 Internal Rotation Behind Back (text) L1 Comments Improvement L AROM supine: FF: 92>131deg ABD: 54> 85 deg ER arm at side: 3>9 deg PT-OP-L Special Tests Start: 01/20/22 18:13 Freq: Status: Active Protocol: Document 01/25/22 09:50 [facility] (Rec: 01/25/22 10:37 [facility] [id number]) Special Tests Cervical Spine Special Tests Vertebral Artery Test Results neg Alar Ligament Test Results neg Spurling's Test Test Results neg Shoulder Special Tests Empty Can Test Results positive L Fajardo Test Test Results less pain than speeds Yergason's Biceps Test Results neg L-pain in fingers after Speed's Biceps Test Results positive Bronson Ralph Impingement Test Results pos L Neer Impingement Test Results pos L AC Joint Compression Test Results neg L Neural Special Tests- Upper Body Median Nerve Tension Test Results Positive L -pain in shoulder that dec when wrist taken out of ext Radial Nerve Tension Test Results L positive-tightness that dec w/wrist to neutral vs ext Ulnar Nerve Tension Test Results positive L PT-OP-M Strength Start: 01/20/22 18:13 Freq: Status: Active Protocol: Document 01/25/22 09:50 [facility] (Rec: 01/25/22 10:37 [facility] [id number]) Shoulder Strength Shoulder Manual Muscle Testing Right Flexion 5 Normal Extension 5 Normal Abduction (C5) 5 Normal External Rotation 5 Normal Internal Rotation 5 Normal Left Flexion 4 Good Extension 4 Good Abduction (C5) 2 Poor External Rotation 3+ Fair+ Internal Rotation 4- Good- Comments pain Elbow/Forearm Strength Elbow and Forearm Manual Muscle Testing Right Flexion (C6) 5 Normal Extension (C7) 5 Normal Pronation 4 Good Supination 5 Normal Left Flexion (C6) 3+ Fair+ Extension (C7) 4 Good Pronation 4 Good Supination 4- Good- Comments pain PT-OP-T Assessment and Plan Start: 01/20/22 18:13 Freq: Status: Active Protocol: Document 04/19/22 11:57 [facility] (Rec: 04/19/22 11:59 [facility] [id number]) Physical Therapy Assessment Goals Quick dash Impairment 68.18 Short Term Goal (STG) Pt will improve score of quick dash to at least 45 to show improved functional ability. STG Duration 02/24 Record Retrieval Specialist Goal (LTG) Pt will improve score of quick dash to at least 5 to show improved functional ability. LTG Duration 04/26 sleep Short Term Goal (STG) Pt will be educated in sleep positioning and follow through w/appropriate propping and pain management at night STG Duration 03/25 Record Retrieval Specialist Goal (LTG) Pt will be able to sleep w/o inc pain in L shoulder or UE LTG Duration 04/26 actvities Short Term Goal (STG) Pt will be able to do ADLs like dressing, bathing and skratching backw /o inc pain STG Duration 03/27 Record Retrieval Specialist Goal (LTG) Pt will be able to fish, carry objects and golf w/o inc pain . LTG Duration 04/26 strength Short Term Goal (STG) Pt will be indep w/HEP STG Duration 03/15 Record Retrieval Specialist Goal (LTG) Pt will score 5/5 for MMT on L shoulder and elbow without inc paina nd at last 3/5 on EFT to allow improved stabiltiy to carry objects and do work on boat and house w/o inc pain. LTG Duration 04/26 ROM Short Term Goal (STG) Pt will have no pain w/ cervical ROM and will have equal rotation and SB B STG Duration 03/15 Fpc Goal (LTG) Pt will improve AROM of L shoulder to that of R shoulder to allow for pt to do typical daily activities w/o pain LTG Duration 04/26 Assessment Summary Assessment pt was making progress w/ overhead motion w/therapy, but cancelled all appts on 02/14 as he saw his ortho who said he doesn't need PT anymore and to cancel his appointments. DC d/t pt request Physical Therapy Plan Discharge Physical Therapy Discharge Reasons Patient Request
== END 2022-04-21 13:42 | disposition home or self-care (01) ==
LOC: PHYS 09:45
PROVIDERS: Family Provider Family Medicine; PCP Family Medicine; Referring Provider Family Medicine; Visit Provider Family Medicine
DX: M75.02 Adhesive capsulitis of left shoulder (principal); R53.1 Weakness; R29.3 Abnormal posture; M54.2 Cervicalgia; M25.612 Stiffness of left shoulder, not elsewhere classified
CPT/HCPCS: 97010; 97110; 97140; 97162

== ENCOUNTER → 2022-04-15 08:22 | Outpatient (CLI) | payer MEDICARE, OTHER, SELFPAY ==
[2022-04-15 10:57] LABS: Alanine Aminotransferase 44 IU/L (<50); Albumin 4.5 g/dL (3.5-5.0); Albumin Globulin Ratio 1.9 (1.0-2.8); Alkaline Phosphatase 64 U/L (38-126); Aspartate Aminotransferase 29 IU/L (17-59); BUN Creatinine Ratio 19.5 (6-22); Bilirubin Total 0.7 mg/dL (0.2-1.3); Blood Urea Nitrogen 17 mg/dL (9-20); Calcium 9.1 mg/dL (8.4-10.2); Carbon Dioxide 28 mmol/L (22-32); Chloride 101 mmol/L (98-107); Cholesterol 183 mg/dL (140-199); Estimated Glomerular Filt Rate > 60 mL/min (>60); Globulin 2.4 g/dL (1.7-4.1); Glucose 119 mg/dL (80-110); HDL Cholesterol 72 mg/dL (40-60); HEMOLYSIS < 15 (0-50); LDL Cholesterol Calculated 74 mg/dL (<100); Potassium 4.1 mmol/L (3.4-5.1); Sodium 138 mmol/L (137-145); Total Protein 6.9 g/dL (6.3-8.2); Triglycerides 187 mg/dL (35-150)
[2022-04-15 13:46] LABS: Hemoglobin A1C% w Est Avg Glu 6.2 % (4.0-6.0)
== END ==
PROVIDERS: Family Provider Family Medicine; PCP Family Medicine; Referring Provider Family Medicine; Visit Provider Family Medicine
DX: R73.03 Prediabetes (principal); G56.02 Carpal tunnel syndrome, left upper limb; M75.02 Adhesive capsulitis of left shoulder; E78.5 Hyperlipidemia, unspecified; I10 Essential (primary) hypertension
CPT/HCPCS: 36415; 80053; 80061; 83036

== ENCOUNTER → 2022-04-25 11:12 | Outpatient (CLI) | payer MEDICARE, OTHER, SELFPAY ==
--- NOTE | 2022-04-25 11:13 | DI.RAD.S_ITS ---
PROCEDURE: XR KUB INDICATIONS: kidney stones TECHNIQUE: One view of the abdomen acquired. COMPARISON: [facility], , XR KUB, 04/27/2021, 12:15. FINDINGS: Surgical changes and devices: None. Bowel: Bowel gas pattern is normal. Soft tissues: The previously visualized calcification in the region of the left lower pole is not visualized on the current study. However no suspicious ureteral calcification is visualized on the left side. Phleboliths and vascular calcifications are redemonstrated. Bones: No suspicious bony lesions. IMPRESSION: Nonvisualization of the previously identified calculus projected over the lower pole of the left kidney. Dictated by: Marta Fernandes M.D. on 04/25/2022 at 14:20 Approved by: Marta Fernandes M.D. on 04/25/2022 at 14:22
[2022-04-25 12:55] LABS: Prostate Specific Antigen 0.665 ng/mL (0.10-4.00)
== END ==
PROVIDERS: Family Provider Family Medicine; PCP Family Medicine; Referring Provider Specialist; Visit Provider Specialist
DX: N20.0 Calculus of kidney (principal)
CPT/HCPCS: 36415; 74018; 84153

== ENCOUNTER → 2022-08-23 09:37 | Outpatient (CLI) | payer MEDICARE, OTHER, SELFPAY ==
--- NOTE | 2022-08-23 09:39 | DI.RAD.S_ITS ---
PROCEDURE: XR KUB INDICATIONS: kidney stones TECHNIQUE: One view of the abdomen acquired. COMPARISON: [facility], CR, XR KUB, 04/25/2022, 11:13. FINDINGS: Surgical changes and devices: None. Bowel: Bowel gas pattern is normal. Soft tissues: Faint calcification is noted in left abdomen projecting in lower pole of left kidney measures 4 mm in size. No definite right-sided renal calcification is seen.. Visualized solid organ contours appear normal in size. Phleboliths are seen in lower pelvis. Bones: No suspicious bony lesions. IMPRESSION: Finding is suggestive of tiny left-sided renal stone as above. Dictated by: Keshav Chun M.D. on 08/23/2022 at 10:50 Approved by: Keshav Chun M.D. on 08/23/2022 at 10:57
== END ==
PROVIDERS: Family Provider Family Medicine; PCP Family Medicine; Referring Provider Specialist; Visit Provider Specialist
DX: N20.0 Calculus of kidney (principal)
CPT/HCPCS: 74018

== ENCOUNTER 2023-05-13 17:28 | Emergency (ER) | payer MEDICARE, OTHER, SELFPAY ==
--- NOTE | 2023-05-13 17:35 | DI.RAD.S_ITS ---
PROCEDURE: XR CHEST 1V INDICATIONS: chest pain TECHNIQUE: One view of the chest was acquired. COMPARISON: None. FINDINGS: Surgical changes and devices: None. Lungs and pleura: No dense airspace disease or pleural effusion. Possible left lung base linear opacity. Mediastinum: Normal heart size. Bones and chest wall: Degenerative changes. IMPRESSION: Left lung base atelectasis or aspiration. No pleural effusion or dense consolidation otherwise. Consider future imaging surveillance to assess for resolution. Dictated by: Gene Corona M.D. on 05/13/2023 at 18:12 Approved by: Gene Corona M.D. on 05/13/2023 at 18:13
[2023-05-13 17:39] VITALS: BP 168/91; PULSE 77; RESP 18; O2SAT 94
[2023-05-13 17:40] VITALS: BP 168/91; PULSE 75; RESP 16; TEMP 36.6; O2SAT 96; BMI 28.8
[2023-05-13 18:00] VITALS: BP 149/73; PULSE 72; RESP 16; O2SAT 96
[2023-05-13 18:00] LABS: Add Manual Diff / Slide Review NO; Basophils Absolute Auto 100 /uL (0-100); Basophils Percent Auto 0.8 % (0-2); Eosinophils Absolute Auto 300 /uL (0-450); Eosinophils Percent Auto 3.7 % (2-4); Hematocrit 46.9 % (41-53); Hemoglobin 16.3 g/dL (13.5-17.5); Lymphocytes Absolute Auto 1600 /uL (1100-4500); Lymphocytes Percent Auto 20.4 % (25-40); Mean Corpuscular HGB Conc 34.7 % (30-36); Mean Corpuscular Hemoglobin 32.1 PG (26-34); Mean Corpuscular Volume 92.3 fL (80-100); Monocytes Absolute Auto 500 /uL (0-900); Monocytes Percent Auto 6.3 % (3-14); Neutrophils Absolute Auto 5500 /uL (1500-7000); Neutrophils Percent Auto 68.8 % (50-75); Platelet Count 206 X10^3/uL (150-400); Red Blood Cell Count 5.09 X10^6/uL (4.5-5.9); Red Cell Distribution Width 12.3 % (11.6-14.8)
[2023-05-13 18:02] LABS: INR 1.1 (0.9-1.3); Prothrombin Time 12.2 SECONDS (9.4-12.5)
[2023-05-13 18:04] LABS: PTT Partial Thromboplastin Tim 27 SECONDS (25.1-36.5)
--- NOTE | 2023-05-13 18:05 | ED_ITS ---
HPI - Chest Pain General Chief Complaint: Chest Pain Stated Complaint: chest pains Time Seen by Provider: 05/13/23 18:05 Source: patient Mode of arrival: Ambulatory History of Present Illness HPI narrative: 67-year-old gentleman with a hip strain of kidney stones, hypertension hyperlipidemia and a history of left shoulder pain secondary to adhesive capsulitis who was driving his car this afternoon and began noticing muscle type spasms in his left upper quadrant. He describes them as fleeting but quite painful and as frequent as 3 minute quieting down after approximately 4 hours to 1 every 3-5 minutes. Not associated with palpitation shortness of breath diaphoresis. He notes that he had mild upper respiratory symptoms about a week ago that have all completely resolved. He is complaining of no nausea, vomiting, diarrhea. The spasms do not seem to be precipitated by deep breathing, movement or position. He is never had similar findings Related Data Previous Rx's Medication Instructions Recorded rosuvastatin 40 mg tablet 40 mg PO DAILY #90 tabs 08/01/22 potassium citrate 10 mEq (1,080 10 meq PO TID #270 tabs 08/25/22 mg) tablet,extended release ipratropium bromide 21 mcg (0.03 2 spray intranasal BID #30 mL 09/27/22 %) nasal spray hydrochlorothiazide 12.5 mg capsule 12.5 mg PO QAM #90 caps 10/05/22 Allergies Allergy/AdvReac Type Severity Reaction Status Date / Time meloxicam Allergy Intermediate Rash Verified 05/13/23 17:42 Review of Systems Review of Systems Narrative: Pertinent positive and negative findings as per HPI Patient History Medical History Abnormal colonoscopy Adhesive capsulitis of left shoulder Calcium nephrolithiasis Carpal tunnel syndrome of left wrist Chicken pox (~1974) Chronic pansinusitis Chronic sinusitis (~1996) Colon polyps (~2014) Entrapment of left ulnar nerve Herpes (~1983) History of nephrolithiasis History of squamous cell carcinoma (~1993) Hyperlipidemia (~2007) Hypertension Insomnia with sleep apnea, unspecified Left elbow pain Left groin pain Lesion of adrenal gland Nasal obstruction Neoplasm of nose Obstructive sleep apnea Osteoporosis (~2009) Pre-diabetes Prediabetes Renal calculus, left Renal colic on right side Respiratory obstruction Sciatica (~2014) Snoring Status post extracorporeal shock wave therapy (12/20/19) Ureteral calculus, right Surgical History Anesthesia Carpal tunnel syndrome on both sides (~2017) Cubital tunnel syndrome, bilateral (~2017) History of colonoscopy (11/04/19) History of oral surgery Status post surgical removal of neoplasm of skin Family History Father Dementia Congestive heart failure Hypertension Hyperlipidemia Sleep apnea Mother Cancer COPD (chronic obstructive pulmonary disease) Brother Congestive heart failure Myocardial infarction Arrhythmia Hyperlipidemia Sister Chronic sinusitis Deviated nasal septum Grandfather No problems noted. Grandmother Cancer Grandfather Arterial stenosis Hyperlipidemia Stroke Grandmother Myocardial infarction Congestive heart failure Social History household members: spouse Smoking Status: Former smoker Tobacco: How many years used: 5 quit status: has quit before second hand exposure: Yes alcohol intake: current substance use type: does not use Smoking Status: Former smoker alcohol intake frequency: 0-2 drinks per day Substance Use Type: does not use Exam Initial Vital Signs Initial Vital Signs: Vital Signs Pulse Rate 77 05/13/23 17:39 Respiratory Rate 18 05/13/23 17:39 Blood Pressure 168/91 H 05/13/23 17:39 Pulse Oximetry 94 05/13/23 17:39 General: Healthy appearing, in no acute distress. Able to give a complete and coherent history. Well-nourished well-developed HEENT: Moist mucous membranes, normal sclera with reactive pupils, Neck: No JVD, supple Respiratory: Lungs are clear to auscultation, no wheezing no rales no rhonchi. Full and symmetrical air movement Cardiac: Regular rate and rhythm no murmurs no bruits Chest: No skin changes over the area of concern. The spasm seems to be focused along ribs 11 and 12 in the mid axillary line and are not reproducible with palpation. Abdomen: Soft, nontender, good bowel tones, no flank pain Skin: Warm and dry, no rashes Neurologic: Grossly neurologically intact with no obvious asymmetries or abnormalities Extremities: No trauma, well perfused Psych: Cooperative, appropriate insight and affect Course Orders Ordered: ED Orders 05/13/23 17:35 XR chest 1V Stat 05/13/23 17:41 EKG-12 Lead Stat 05/13/23 17:46 Complete Blood Count AUTO DIFF Stat Comprehensive Metabolic Panel Stat Lipase Stat Magnesium Stat PTT Partial Thromboplastin Vinod Stat Prothrombin Time INR Stat Troponin & CK Cardiac Panel Stat Vital Signs Vital signs: Vital Signs - 8 hr 05/13/23 17:39 05/13/23 17:39 05/13/23 17:40 Temperature 98 F Pulse Rate 77 75 Respiratory Rate 18 16 Blood Pressure 168/91 H 168/91 H Pulse Oximetry 94 96 Oxygen Delivery Method Room Air 05/13/23 18:00 05/13/23 18:00 05/13/23 18:30 Temperature Pulse Rate 72 Respiratory Rate 16 Blood Pressure 149/73 H 140/68 Pulse Oximetry 96 Oxygen Delivery Method 05/13/23 18:30 05/13/23 19:00 05/13/23 19:00 Temperature Pulse Rate 74 69 Respiratory Rate 15 14 Blood Pressure 151/75 H Pulse Oximetry 96 Oxygen Delivery Method Room Air MDM - Chest Pain Lab Data 05/13/23 17:46 05/13/23 17:46 Labs: Lab Results 05/13/23 Range/Units 17:46 WBC 8.0 (4.5-11.0) X10^3/uL RBC 5.09 (4.5-5.9) X10^6/uL Hgb 16.3 (13.5-17.5) g/dL Hct 46.9 (41-53) % MCV 92.3 (80-100) fL MCH 32.1 (26-34) PG MCHC 34.7 (30-36) % RDW 12.3 (11.6-14.8) % Plt Count 206 (150-400) X10^3/uL Neut % (Auto) 68.8 (50-75) % Lymph % (Auto) 20.4 L (25-40) % [place] % (Auto) 6.3 (3-14) % Eos % (Auto) 3.7 (2-4) % Baso % (Auto) 0.8 (0-2) % Neut # (Auto) 5500 (7864-8966) /uL Lymph # (Auto) 1600 (6480-7134) /uL [place] # (Auto) 500 (0-900) /uL Eos # (Auto) 300 (0-450) /uL Baso # (Auto) 100 (0-100) /uL PT 12.2 (9.4-12.5) SECONDS INR 1.1 (0.9-1.3) APTT 27 (25.1-36.5) SECONDS Sodium 136 L (137-145) mmol/L Potassium 3.5 (3.4-5.1) mmol/L Chloride 99 (98-107) mmol/L Carbon Dioxide 29 (22-32) mmol/L BUN 23 H (9-20) mg/dL Creatinine 0.90 (0.66-1.25) mg/dL Estimated GFR > 60 (>60) mL/min BUN/Creatinine Ratio 25.6 H (6-22) Glucose 157 H (80-110) mg/dL Calcium 9.6 (8.4-10.2) mg/dL Magnesium 2.1 (1.6-2.3) mg/dL Total Bilirubin 0.7 (0.2-1.3) mg/dL AST 33 (17-59) IU/L ALT 40 (<50) IU/L Alkaline Phosphatase 52 (38-126) U/L Total Creatine Kinase 282 H (55-170) U/L Troponin I < 0.012 (0.01-0.034) ng/mL Total Protein 7.2 (6.3-8.2) g/dL Albumin 4.4 (3.5-5.0) g/dL Globulin 2.8 (1.7-4.1) g/dL Albumin/Globulin Ratio 1.6 (1.0-2.8) Lipase 117 (23-300) U/L [facility] Narrative Medical decision making narrative: CC: Acute onset of brief spasming sensation in the left quadrant Complicating co-morbidities: Hypertension, hyperlipidemia recent upper respiratory infection Data collected from: patient Medical records reviewed: Primary care notes reviewed Differential considered: Muscle spasm, pancreatic abscess, zoster prodrome Exam documented above, pertinent findings include: Exam is entirely benign and palpation in the area of concern does not reproduce spasms Lab Test results independently reviewed as above. Pertinent findings: CBC is entirely unremarkable Chemistries are reassuring. Troponin is undetectable. Total creatinine kinase is slightly elevated at 282 Lipase is within normal limits Independently reviewed EKG: Sinus rhythm at a rate of 72, normal intervals, normal axis no acute ischemic changes Imaging studies independently reviewed: Chest x-ray is completely unremarkable with no pulmonary abnormalities and normal cardiac silhouette. Radiologist describes a possible left lung base linear opacity Treatments: Patient is been in the emergency department now for approximately 2 hours has been on telemetry the entire time and has had no abnormal rhythms appreciated Discussion: 67-year-old gentleman with muscle spasm type pain associated with left ribs 11 and 12 uncertain etiology but does seem to be improving. No evidence of acute coronary syndrome, underlying abdominal pathology, abscess or infection. At this point reassurance is given, we will suggest Tylenol or ibuprofen if he feels the sensation is significant enough to warrant pain control. Will request that he follow up with his primary care doctor. We did review all of his labs and studies, questions are answered and he is safe for discharge Discharge Plan Departure Patient Disposition: Home Clinical Impression: Muscle spasm Instructions: DI for Muscle Spasm Activity Restrictions/Additional Instructions: Thank you for coming in today Your workup was quite reassuring. I see no evidence of lung abnormalities or infection, heart attack issues or pancreatic abnormalities. Your blood work was equally reassuring I do not have a full explanation for why you all of a sudden her having this sensation but I do suspect that it is muscle spasm related. If you find that you are getting worse or develop any new symptoms, please feel free to return to the emergency department for further evaluation. If the symptoms persist I would follow up with your primary care doctor and if you are developing new symptoms or find that things are worsening please feel free to return to the ER Prescriptions: No Action ipratropium bromide 21 mcg (0.03 %) spray,non-aerosol 2 spray intranasal BID Qty: 30 0RF Rx Instructions: administer into each nostril rosuvastatin 40 mg tablet 40 mg PO DAILY Qty: 90 3RF potassium citrate 10 mEq (1,080 mg) tablet extended release 10 meq PO TID Qty: 270 3RF hydrochlorothiazide 12.5 mg capsule 12.5 mg PO QAM Qty: 90 3RF Referrals: Juvencio Jones DO [Primary Care Provider] - Stand Alone Forms: Patient Portal/API
[2023-05-13 18:10] LABS: Alanine Aminotransferase 40 IU/L (<50); Albumin 4.4 g/dL (3.5-5.0); Albumin Globulin Ratio 1.6 (1.0-2.8); Alkaline Phosphatase 52 U/L (38-126); Aspartate Aminotransferase 33 IU/L (17-59); BUN Creatinine Ratio 25.6 (6-22); Bilirubin Total 0.7 mg/dL (0.2-1.3); Blood Urea Nitrogen 23 mg/dL (9-20); Calcium 9.6 mg/dL (8.4-10.2); Carbon Dioxide 29 mmol/L (22-32); Chloride 99 mmol/L (98-107); Creatine Kinase 282 U/L (55-170); Estimated Glomerular Filt Rate > 60 mL/min (>60); Globulin 2.8 g/dL (1.7-4.1); Glucose 157 mg/dL (80-110); HEMOLYSIS < 15 (0-50); Lipase 117 U/L (23-300); Magnesium 2.1 mg/dL (1.6-2.3); Potassium 3.5 mmol/L (3.4-5.1); Sodium 136 mmol/L (137-145); Total Protein 7.2 g/dL (6.3-8.2)
[2023-05-13 18:21] LABS: Troponin I < 0.012 ng/mL (0.01-0.034)
[2023-05-13 18:30] VITALS: BP 140/68; PULSE 74; RESP 15
[2023-05-13 19:00] VITALS: BP 151/75; PULSE 69; RESP 14; O2SAT 96
[2023-05-13 19:30] VITALS: BP 153/77; PULSE 70; RESP 33; O2SAT 94
== END 2023-05-13 19:44 | disposition home or self-care (01) ==
PROVIDERS: Emergency Medicine Emergency Medical Services; Emergency Provider Emergency Medicine; Family Provider Family Medicine; PCP Family Medicine
DX: M62.838 Other muscle spasm (principal); R79.89 Other specified abnormal findings of blood chemistry; R07.9 Chest pain, unspecified
CPT/HCPCS: 36415; 71045; 80053; 82550; 83690; 83735; 84484; 85025; 85610; 85730; 93005; 99283; 99284

== ENCOUNTER → 2023-09-25 07:53 | Outpatient (CLI) | payer MEDICARE, SELFPAY ==
[2023-09-25 08:30] LABS: Hemoglobin A1C% w Est Avg Glu 6.5 % (4.0-6.0)
[2023-09-25 11:21] LABS: Alanine Aminotransferase 28 IU/L (<50); Albumin 4.5 g/dL (3.5-5.0); Albumin Globulin Ratio 1.8 (1.0-2.8); Alkaline Phosphatase 64 U/L (38-126); Aspartate Aminotransferase 28 IU/L (17-59); BUN Creatinine Ratio 21.4 (6-22); Bilirubin Total 0.6 mg/dL (0.2-1.3); Blood Urea Nitrogen 18 mg/dL (9-20); Calcium 9.1 mg/dL (8.4-10.2); Carbon Dioxide 26 mmol/L (22-32); Chloride 106 mmol/L (98-107); Cholesterol 125 mg/dL (140-199); Estimated Glomerular Filt Rate > 60 mL/min (>60); Globulin 2.5 g/dL (1.7-4.1); Glucose 138 mg/dL (80-110); HDL Cholesterol 44 mg/dL (40-60); HEMOLYSIS < 15 (0-50); LDL Cholesterol Calculated 65 mg/dL (<100); Potassium 4.1 mmol/L (3.4-5.1); Sodium 138 mmol/L (137-145); Triglycerides 81 mg/dL (35-150)
[2023-09-25 11:51] LABS: Prostate Specific Antigen 0.715 ng/mL (0.10-4.00)
== END ==
PROVIDERS: Family Provider Family Medicine; PCP Family Medicine; Referring Provider Family Medicine; Visit Provider Family Medicine
DX: Z12.5 Encounter for screening for malignant neoplasm of prostate (principal); R73.03 Prediabetes; I10 Essential (primary) hypertension; E78.00 Pure hypercholesterolemia, unspecified
CPT/HCPCS: 36415; 80053; 80061; 83036; 84153

== ENCOUNTER → 2023-12-13 10:04 | Outpatient (CLI) | payer MEDICARE, SELFPAY ==
--- NOTE | 2024-01-02 17:16 | DIAB.MNT ---
Initial Diabetes Medical Nutrition Therapy Assessment Name: Eliu Butler Date: 12/13/23 Time: 4259-1245a Dx: Type II Diabetes Provider: Robert Preferred Learning Style: Listening, Watching, Doing Cristóbal presents for initial Dm visit. Recent diagnosis of T2Dm in September with HGA1c of 6.5%. Endorses FH of Dm with father. States he would like to avoid medications and work on lifestyle change. Today he has questions about BG monitoring and HgA1c. No recent eye exam. Does not check feet daily. is up to date on dental and vaccinations per report. Endorses h/o calcium kidney stones and needing guidance on how to manage DM with also reducing risk of kidney stones. Diet Recall: 7a: coffee black or with coral cream ETOH 8a: Occitan yogurt with fruit x 1/4c, 1/2 banana OR harris, eggs, 1c peaches inlight syrup 12p: protein, salad OR sandwich OR wrap OR hot dog 6p: taco salad OR protein with veggies and 1c potatoes 8-9p: maple cookies 3x or nothing or dark chocolate Likes juice but none lately water: 16oz x 3-4 ETOH: 2+ servings per day Anthropometrics: Ht: 68 Wt: 186.4# today 197# 09/2023 Physical Activity: ADLs mostly. No intentional program. Self-Monitoring Blood Glucose: No meter or supplies. Interested in BG checks. Diabetes Medications: None Pertinent Labs: HgA1c: 6.2% 09/2023 6.5% Past Medical History: (Last Reviewed 10/06/23 @ 17:24 by Juvencio Jones DO) Abnormal colonoscopy Adhesive capsulitis of left shoulder Calcium nephrolithiasis Carpal tunnel syndrome of left wrist Chicken pox (~1974) Chronic pansinusitis Chronic sinusitis (~1996) Colon polyps (~2014) Entrapment of left ulnar nerve Herpes (~1983) History of nephrolithiasis History of squamous cell carcinoma (~1993) Hyperlipidemia (~2007) Hypertension Insomnia with sleep apnea, unspecified Left elbow pain Left groin pain Lesion of adrenal gland Nasal obstruction Neoplasm of nose Obstructive sleep apnea Osteoporosis (~2009) Pre-diabetes Prediabetes Renal calculus, left Renal colic on right side Respiratory obstruction Sciatica (~2014) Snoring Status post extracorporeal shock wave therapy (08/07/20) Type 2 diabetes mellitus Ureteral calculus, right Nutrition Rx: Carbohydrates: Meal:45g Snack:15-30g Sodium: 2000-2400mg/day Nutrition Diagnosis: - Nutrition and food related knowledge deficit r/t new dx T2DM and needing MNT aeb pt report, diet recall and hgA1c 6.5% - Physical inactivity r/t stage of change contemplative aeb pt report of considering more movement Intervention: This participant was very receptive. Provided appropriate educational handouts. Discussed the following topics: Completed intake assessment. Discussed barriers to care. Brief pathophysiology of T2DM HgA1c, its correlation to blood glucose numbers, and rationale for goal Option of self-monitoring, how often, and when to check. Suggested checking at different times to evaluate meals Plate Method, impact of macronutrients on blood sugar, meal timing, pairing macronutrients and spreading out carbohydrates for better blood glucose management Recommended servings for carbohydrates at meals and snacks ETOH recommendations Role of physical activity Heart health: sodium recs Hydration recommendations and role in BG management Kidney stone risk reduction MNT Risk reduction for DM complications Created SMART goals for patient self-care and success. Goals: Aim for more water: 16oz x 4 Be conscious of Na intake Keep ETOH intake to 1-2 servings per day Keep protein to 3-4 oz per meal Consider walking for physical activity Follow-up: TABATHA VICENTE follow-up in 2-3 weeks for 1:1 visit and then DSME classes in January. Dionna Miguel RDN, CDCES Certified Diabetes Care and Visual Presentation Manager P: [phone] Thank you for this referral
== END ==
LOC: DIET 10:04
PROVIDERS: Family Provider Family Medicine; PCP Family Medicine; Referring Provider Family Medicine
DX: E11.9 Type 2 diabetes mellitus without complications (principal); Z71.3 Dietary counseling and surveillance
CPT/HCPCS: 97802

== ENCOUNTER → 2024-01-04 09:35 | Outpatient (CLI) | payer MEDICARE, SELFPAY ==
--- NOTE | 2024-01-04 09:36 | DIAB.MNTFU ---
Follow-up Diabetes Medical Nutrition Therapy Assessment Name: Eliu Butler Date: 01/04/24 Time: 930-10a Dx: Type II Diabetes Provider: Robert Preferred Learning Style: Listening, Watching, Doing Cristóbal presents for follow-up Dm visit. Recent diagnosis of T2Dm in September with HGA1c of 6.5%. Would like to avoid medications and work on lifestyle change. H/o calcium kidney stones. Has reduced ETOH intake to 0-2 servings per day. Has reduced protein portions, though often >4oz at meals (6-10oz). Using moreno based pastas, not eating cereal anymore, choosing more fresh/frozen fruit vs canned in light syrup. Questions about net cab label reading, macro pairing, and Na in canned veggies. On prednisone x 8 days for sinuses, which may impact BG. Anthropometrics: Ht: 68 Wt: 186.4# last visit 197# 09/2023 Physical Activity: Started walking, 3x per week for 1.5 mi. Self-Monitoring Blood Glucose: Picked up meter and strips. FBG mostly <130mg/dl. All postprandial readings in goal. Numbers previous to this week: FBG ranging from 89-131mg/dl and postprandial ranging from 87-126mg/dl. Date Pre Post Pre Post Pre Post HS 12/23 132 12/24 99 112 12/25 118 15 159 12/28 109 114 12/30 114 01/02 130 Diabetes Medications: None Pertinent Labs: HgA1c: 6.2% 09/2023 6.5% Past Medical History: (Last Reviewed 10/06/23 @ 17:24 by Juvencio Jones, DO) Abnormal colonoscopy Adhesive capsulitis of left shoulder Calcium nephrolithiasis Carpal tunnel syndrome of left wrist Chicken pox (~1974) Chronic pansinusitis Chronic sinusitis (~1996) Colon polyps (~2014) Entrapment of left ulnar nerve Herpes (~1983) History of nephrolithiasis History of squamous cell carcinoma (~1993) Hyperlipidemia (~2007) Hypertension Insomnia with sleep apnea, unspecified Left elbow pain Left groin pain Lesion of adrenal gland Nasal obstruction Neoplasm of nose Obstructive sleep apnea Osteoporosis (~2009) Pre-diabetes Prediabetes Renal calculus, left Renal colic on right side Respiratory obstruction Sciatica (~2014) Snoring Status post extracorporeal shock wave therapy (12/20/19) Type 2 diabetes mellitus Ureteral calculus, right Nutrition Rx: Carbohydrates: Meal:45g Snack:15-30g Sodium: 2000-2400mg/day Nutrition Diagnosis: - Nutrition and food related knowledge deficit r/t new dx T2DM and needing MNT aeb pt report, diet recall and hgA1c 6.5%- improved - Physical inactivity r/t stage of change contemplative aeb pt report of considering more movement- improved Intervention: This participant was very receptive. Provided appropriate educational handouts. Discussed the following topics: BG monitoring and pattern assessment Na in canned veggies and ways to reduce Protein portions for kidney health Hydration Label reading for net carbs Macronutrient pairing and impact on BG ETOH recommendations and success on reducing servings Created SMART goals for patient self-care and success. Goals: Aim for more water: 16oz x 4 - met Be conscious of Na intake- met Keep ETOH intake to 1-2 servings per day- met Keep protein to 3-4 oz per meal- in progress Consider walking for physical activity - met Read food labels for net carbs- new Rinse canned veggies to reduce sodium- new Follow-up: TABATHA VICENTE follow-up in DSME classes in January and 1:1 in February. Anticipates PCP and new labs in January. Dionna Miguel RDN, [facility] Certified Diabetes Care and [facility] P: [phone] Thank you for this referral
== END ==
PROVIDERS: Family Provider Family Medicine; PCP Family Medicine; Referring Provider Family Medicine
DX: E11.9 Type 2 diabetes mellitus without complications (principal); Z71.3 Dietary counseling and surveillance
CPT/HCPCS: 97803

== ENCOUNTER → 2024-01-08 09:43 | Outpatient (CLI) | payer MEDICARE, SELFPAY ==
--- NOTE | 2024-01-08 09:44 | DI.RAD.S_ITS ---
PROCEDURE: XR KUB INDICATIONS: kidney stone TECHNIQUE: One view of the abdomen acquired. COMPARISON: [facility], CR, XR KUB, 08/23/2022, 9:49. FINDINGS: Surgical changes and devices: None. Bowel: Bowel gas pattern is normal. Moderate fecal debris in the right colon. Probable 5 mm calculus projects over the hilum of the right kidney Soft tissues: No suspicious abdominal calcifications. Visualized solid organ contours appear normal in size. Bones: No suspicious bony lesions. IMPRESSION: Possible right renal 5 mm calculus. Overlying fecal debris Approved by: Omar Castellanos M.D. on 01/08/2024 at 18:07
== END ==
LOC: RAD 09:44
PROVIDERS: Family Provider Family Medicine; PCP Family Medicine; Referring Provider Urology; Visit Provider Urology
DX: N20.2 Calculus of kidney with calculus of ureter (principal)
CPT/HCPCS: 74018

== ENCOUNTER → 2024-01-16 09:22 | Outpatient (CLI) | payer MEDICARE, SELFPAY ==
--- NOTE | 2024-01-19 14:53 | DIAB.FU ---
Diabetes Education Class Series: Diabetes and Nutrition Name: Eliu Butler Date: 01/16/24 Time: [id number] Cristóbal presents with spouse for 1 of 3 DSME classes. Reports he has been working on dietary change and exercise. Class topics covered: Debunk nutrition myths and discuss how to sustain healthy eating long-term through moderation and variety Define macronutrients and determine their impact on blood sugars Discuss macronutrient pairing, Plate Method, and carb counting Review general recommendations for carbohydrates Practice label reading Discuss the role of fiber in diabetes and provide examples of sources Review heart health nutrition: fats, fiber, and sodium Determine recommendations for grocery shopping and eating out Discuss alcohol recommendations Review the role of substitute sugars in diabetes management Set SMART goals Goal Set: Walk 15 minutes 1x per week ; Start counting carbohydrates Follow-up: Diabetes Physiology and Medication Class in one week Dionna Miguel RDN, [facility] Certified Diabetes Care and [employer] P: [phone] Thank you for this referral
== END ==
LOC: DIET 09:22
PROVIDERS: Family Provider Family Medicine; PCP Family Medicine; Referring Provider Family Medicine
DX: E11.9 Type 2 diabetes mellitus without complications (principal); Z71.3 Dietary counseling and surveillance
CPT/HCPCS: G0109

== ENCOUNTER → 2024-01-23 09:29 | Outpatient (CLI) | payer MEDICARE, SELFPAY ==
--- NOTE | 2024-02-15 11:19 | DIAB.FU ---
Diabetes Education Class Series: Diabetes Physiology and Medications Name: Eliu Butler Date: 01/23/24 Time: [id number] Dx: Type II Diabetes Cristóbal presents with , Zarina. Reports he is now walking 3x per week, surpassing his goal of 1x per week. Also carb counting at meals. Class topics covered: ? Diabetes pathophysiology ? Discuss different types of diabetes ? Review criteria for diagnosing diabetes ? Review HgA1c measurement and associated blood sugars ? Review blood sugar monitoring safety, technique, and goals ? Discuss ways to reduce complications associated with diabetes, includes microvascular and macrovascular complications ? Review diabetes medications types, action, and side effects ? Health care visits recommended for people with T2DM ? Immunization recommended for people with T2DM ? SMART goals review Follow-up: Diabetes Lifestyle and Ongoing Support Class next week Dionna Miguel RDN, [facility] [place] Certified Diabetes Care and Surgery Teacher P: [phone] Thank you for this referral
== END ==
LOC: DIET 09:29
PROVIDERS: Family Provider Family Medicine; PCP Family Medicine; Referring Provider Family Medicine
DX: E11.9 Type 2 diabetes mellitus without complications (principal); Z71.3 Dietary counseling and surveillance
CPT/HCPCS: G0109

== ENCOUNTER → 2024-01-24 08:01 | Outpatient (CLI) | payer MEDICARE, SELFPAY ==
[2024-01-24 09:41] LABS: Cholesterol 155 mg/dL (140-199); HDL Cholesterol 76 mg/dL (40-60); LDL Cholesterol Calculated 62 mg/dL (<100); Triglycerides 84 mg/dL (35-150)
== END ==
PROVIDERS: Family Provider Family Medicine; PCP Family Medicine; Referring Provider Family Medicine; Visit Provider Family Medicine
DX: E11.9 Type 2 diabetes mellitus without complications (principal); E78.00 Pure hypercholesterolemia, unspecified
CPT/HCPCS: 36415; 80061; 83036

== ENCOUNTER → 2024-01-30 11:18 | Outpatient (CLI) | payer MEDICARE, SELFPAY ==
--- NOTE | 2024-02-15 11:25 | DIAB.FU ---
Diabetes Education Class Series: Diabetes Lifestyle Change and Ongoing Support Name: Eliu Butler Date: 01/30/24 Time: 1030-11a Dx: Type II Diabetes Cristóbal joins us late due to appointments this morning, joined by his Zarina. States they have been using new plates with division for portion management. States exercise still could use some more work. Class topics covered: ? Discuss diabetes and emotions (diabetes burnout/distress) ? Review and practice stress management techniques ? Review support groups and community resources ? Discuss the role of family support in diabetes care ? What is going well? Challenges of diabetes? Follow-up: 1:1 visit follow-up Dionna Miguel RDN, [facility] [place] Certified Diabetes Care and [employer] P: [phone] Thank you for this referral
== END ==
LOC: DIET 11:19
PROVIDERS: Family Provider Family Medicine; PCP Family Medicine; Referring Provider Family Medicine
DX: E11.9 Type 2 diabetes mellitus without complications (principal); Z71.3 Dietary counseling and surveillance
CPT/HCPCS: G0109

== ENCOUNTER → 2024-12-11 07:01 | Outpatient (CLI) | payer MEDICARE, SELFPAY ==
[2024-12-11 07:27] LABS: Add Manual Diff / Slide Review NO; Hematocrit 47.3 % (41-53); Hemoglobin 16.6 g/dL (13.5-17.5); Lymphocytes Absolute Auto 1900 /uL (1100-4500); Mean Corpuscular HGB Conc 35.1 % (30-36); Mean Corpuscular Hemoglobin 32.8 PG (26-34); Mean Corpuscular Volume 93.4 fL (80-100); Platelet Count 203 X10^3/uL (150-400)
[2024-12-11 07:55] LABS: Alanine Aminotransferase 35 IU/L (<50); Albumin 4.5 g/dL (3.5-5.0); Albumin Globulin Ratio 1.9 (1.0-2.8); Alkaline Phosphatase 59 U/L (38-126); Blood Urea Nitrogen 20 mg/dL (9-20); Calcium 9.1 mg/dL (8.4-10.2); Carbon Dioxide 27 mmol/L (22-32); Chloride 104 mmol/L (98-107); Estimated Glomerular Filt Rate > 60 mL/min (>60); Globulin 2.4 g/dL (1.7-4.1); Glucose 126 mg/dL (70-99); HEMOLYSIS < 15 (0-50); Potassium 4.3 mmol/L (3.4-5.1); Sodium 136 mmol/L (137-145); Total Protein 6.9 g/dL (6.3-8.2)
[2024-12-11 12:19] LABS: Hemoglobin A1C% w Est Avg Glu 6.1 % (4.0-6.0)
== END ==
PROVIDERS: Family Provider Family Medicine; PCP Family Medicine; Referring Provider Family Medicine; Visit Provider Family Medicine
DX: E11.9 Type 2 diabetes mellitus without complications (principal); Z12.5 Encounter for screening for malignant neoplasm of prostate; I10 Essential (primary) hypertension; E78.5 Hyperlipidemia, unspecified
CPT/HCPCS: 36415; 80053; 83036; 85025; G0103

== ENCOUNTER → 2024-12-12 07:48 | Outpatient (CLI) | payer MEDICARE, SELFPAY ==
[2024-12-12 09:28] LABS: Cortisol AM (Before 10AM) 1.37 ug/dL (4.46-22.7)
[2024-12-18 11:36] LABS: Metanephrine,Plasma 262.4 pg/mL (0.0-88.0)
== END ==
PROVIDERS: Family Provider Family Medicine; PCP Family Medicine; Referring Provider Urology; Visit Provider Urology
DX: E27.8 Other specified disorders of adrenal gland (principal)
CPT/HCPCS: 36415; 80375; 82533; 83835

== ENCOUNTER → 2025-02-13 07:08 | Outpatient (CLI) | payer MEDICARE, SELFPAY ==
[2025-02-13 08:43] LABS: Cholesterol 161 mg/dL (140-199); HDL Cholesterol 65 mg/dL (40-60); Triglycerides 98 mg/dL (35-150)
[2025-02-13 09:16] LABS: Prostate Specific Antigen 0.853 ng/mL (0.10-4.00)
== END ==
PROVIDERS: Family Provider Family Medicine; PCP Family Medicine; Referring Provider Urology; Visit Provider Urology
DX: R97.20 Elevated prostate specific antigen [PSA] (principal); E78.00 Pure hypercholesterolemia, unspecified; Z12.5 Encounter for screening for malignant neoplasm of prostate
CPT/HCPCS: 36415; 80061; 84153

== ENCOUNTER → 2025-02-19 07:21 | Outpatient (CLI) | payer MEDICARE, SELFPAY ==
[2025-02-19 07:46] LABS: Estimated Glomerular Filt Rate > 60 mL/min (>60)
--- NOTE | 2025-02-19 08:14 | DI.CT.S_ITS ---
PROCEDURE: CT ABDOMEN ADRENAL PROTOCOL INDICATIONS: 69 y/o M w/ 3.5cm left adrenal mass, eval for stability TECHNIQUE: Noncontrast 3 mm thick sections acquired from the diaphragms to the iliac crests. After the administration of intravenous contrast, 3 mm thick venous-phase and 15- minute delayed images acquired from the diaphragms to the iliac crests. For radiation dose reduction, the following was used: automated exposure control, adjustment of mA and/or kV according to patient size. COMPARISON: [facility], MR, MR ABDOMEN WO CON, 08/16/2019, 12:09. [facility], CT, CT ABDOMEN WO/W CON, 05/06/2020, 12:54. FINDINGS: Image quality: Excellent. Lower chest: Unremarkable. ABDOMEN: Adrenal Glands: Left adrenal mass measuring 3.5 cm, (2), remotely 3.3 cm in 2019. Noncontrast phase: 29 Hounsfield units. Portal venous phase: 107 Hounsfield units. Delayed phase: 62 Hounsfield units. Absolute Washout: 58 %. Absolute washout of 60% or higher is consistent with an adenoma. Relative Washout: 42 %. Relative washout of 40% or higher is consistent with an adenoma. Most consistent with a benign adenoma. No right adrenal nodule. Liver: No solid mass. Gallbladder: No radiopaque gallstones or wall thickening. Biliary ducts: No biliary dilation. Pancreas: No ductal dilation. Spleen: Size is within normal limits. Kidneys and Ureters: No hydronephrosis. Punctate nonobstructing right kidney stone. Left kidney stone measuring 0.6 cm. No solid mass. No complex renal cystic lesion which requires follow up. Stomach and Bowel: Normal colonic caliber, without significant wall thickening. Normal appendix. Peritoneum: No abnormal intraperitoneal fluid. No free air. Ventral Wall: No hernia. Abdominal Nodes: No retroperitoneal or mesenteric adenopathy by size criteria. Vessels: Aorta and inferior vena cava are normal in size. Circumferential calcified atherosclerotic plaque. Bones: No aggressive osseous abnormality. IMPRESSION: 1. Left adrenal mass measuring 3.5 cm. Not significantly changed in size compared to 2019. The relative washout is greater than 40% suggesting a lipid poor adenoma. 2. Small nonobstructing kidney stones. Dictated by: Gene Hughes M.D. on 02/19/2025 at 9:21 Approved by: Gene Hughes M.D. on 02/19/2025 at 10:32
== END ==
LOC: CT 07:22
PROVIDERS: Family Provider Family Medicine; PCP Family Medicine; Referring Provider Urology; Visit Provider Urology
DX: E27.8 Other specified disorders of adrenal gland (principal); N20.0 Calculus of kidney
CPT/HCPCS: 36415; 74170; 82565; Q9967